=== PATIENT | female | born 1945 | race Caucasian/White ===

== ENCOUNTER 2017-03-30 12:43 | Inpatient (IN) | payer MEDICARE ==
[~2017-03-30] VITALS: Ht 157.4 cm; Wt 90.0 kg
--- NOTE | ~2017-03-30 | PR ---
[place], [place] PROGRESS NOTE NAME: [facility] [id number] UNIT #: [id number] ROOM: 412 DOCTOR: GERONIMO HONG MD,KATIE BIRTHDATE: [birth year] DOS: 04/02/2017 SUBJECTIVE: She has been noted the same as yesterday. The patient appeared to be sleepy at this time, no distress. She has not been noted any acute hemodynamic instability at this time. She has an MRI of the abdomen completed yesterday. The patient was reported as multiple cystic structures pancreatic body, tail, lobulation and septation. The etiology was described to be unclear. Followup MRI for the patient was suggested. OBJECTIVE: VITAL SIGNS: For the patient, which has been recorded showed normal temperature, respiratory rate 20, heart rate 76, blood pressure 114/68. The pulse oxygen saturation for the patient on 3 liters cannula was recorded 98% saturation. HEENT: No new change. CARDIOVASCULAR: S1, S2 audible. LUNGS: Without any wheeze or crackles at the present time. ABDOMEN: Soft, nontender. IMPRESSION: The patient's urinary tract infection with acute sepsis, change in mental status. The patient has history of past stroke. The patient with residual hemiparesis, expressive aphasia. PLAN OF TREATMENT: No changes from the pulmonary standpoint at this time. Continue the patient's current therapy, plan of care as in progress. Usual care, other supportive plan of management. KATIE MELTON MD CM:PNTRANS [phone] KATIE HONG MD 04/03/17 0150 interface
--- NOTE | ~2017-03-30 | PR ---
[place], [place] PROGRESS NOTE NAME: YANN BROOKS UNIT #: [id number] ROOM: 412 DOCTOR: GERONIMO HONG MD,KATIE BIRTHDATE: [birth year] DOS: 04/01/2017 SUBJECTIVE: She has been comfortably resting. Refused to use the BiPAP. She has been currently noted without any distress ____ not reported any changes in the respiratory status. She had ammonia level done yesterday for assessment of mental status as well. OBJECTIVE: VITAL SIGNS: For the patient which have been recorded show normal temperature, respiratory rate 20, heart rate of 92, blood pressure 106/70. Pulse oxygen saturation of the patient noted on 3 liters nasal canula 92% saturation. HEENT: Examination showed no acute change. NECK: Supple. CARDIOVASCULAR SYSTEM: S1, S2 is audible. LUNGS: The patient is noted without any wheeze or crackles at the present time. ABDOMEN: Soft, nontender. IMPRESSION: The patient with acute urinary tract today infection with sepsis. The patient with change in mental status, history of chronic stroke with the patient in the past as well as residual right hemiparesis and expressive aphasia. Refusal of the BiPAP use. PLAN OF TREATMENT: No changes in plan of management. Continue the patient's current therapy at this time with antibiotics, bronchodilator adjustment, antibiotics according to culture results, which has been noted gram-negative infection in the urine. Supportive care and treatment plan of management. KATIE MELTON MD CM:PNKHANG [id number] KATIE HONG MD 04/02/17 0047 interface
--- NOTE | ~2017-03-30 | CON ---
[place], [place] REPORT OF CONSULTATION [id number] UNIT #: [id number] ROOM: 412 DOCTOR: GERONIMO HONG MDKATIE BIRTHDATE: [birth year] DOS: 03/31/2017 REASON FOR CONSULTATION: To assess the patient's acute respiratory failure with sepsis. HISTORY OF PRESENT ILLNESS: A 71-year-old white female currently a resident of senior care after her previous stroke. The patient stays in [facility] for this patient. The patient reported symptoms. She has been rather admitted to the hospital, brought from the hospital for the patient. The patient was noted decreased responsiveness. She was also noted progressive increased lethargy, generalized weakness. The patient was brought to the hospital Emergency Room. She has been noted with hypoxic respiratory failure and also noted with acute urinary tract infection for the patient with sepsis. She was originally admitted to the medical floor for patient because of high amount of supplementation and possible use of the BiPAP for the patient. She was transferred to Intensive Care Unit yesterday. This morning, the patient has been noted more awake and alert at this time. She has been noted expressive aphasia, unable to exactly communicate her problem. The history has been obtained essentially from the past documentation of the patient in this hospital from previous admission for the patient in this hospital in 2015 as well as her current documentation by the other physician records for this patient and the nursing staff notes. The patient denies any symptoms of shortness of breath, coughing, chest pain or sputum expectoration. She stated she is not sure why she come to the hospital and what has been going on at this time. REVIEW OF SYSTEMS: Could not be completed for this patient at this time effectively because of the patient's inability to exactly communicate her illness. PAST MEDICAL HISTORY: Noted with patient's previous hospitalization in this hospital in 11/2015 for this patient, at that time, the patient has been treated in this hospital for acute hypoxic respiratory failure with acute congestive heart failure with history of past chronic stroke and the patient noted right hemiparesis. 1. Obstructive sleep apnea disorder which had been diagnosed in 2003, the patient may noncompliant with the treatment. 2. History of gastroesophageal reflux. 3. Atrial fibrillation. 4. History of acute embolic stroke, the patient left hemiparesis in August 2016. 5. Iron deficiency anemia. 6. Hypothyroidism. 7. Chronic obesity. 8. History of depression. 9. History of congestive heart failure and diastolic dysfunction. 10. Antiphospholipid antibody syndrome. The patient has hypercoagulability disorder. 11. History of type 2 diabetes mellitus. [place], [place] REPORT OF CONSULTATION NAME: YANN BROOKS UNIT #: [id number] ROOM: 412 DOCTOR: KATIE DHILLON MD BIRTHDATE: [birth year] PAST SURGICAL HISTORY: 1. . 2. Cholecystectomy. 3. Colonoscopy. SOCIAL HISTORY: The patient is , was living at the nursing facility at this time. There is no history of alcohol use, illicit drug use or any tobacco use. FAMILY HISTORY: The patient's mother at age of 6060 years old from complications related to myocardial infarction. Father at age 6060 years old from complication related to myocardial infarction as well. MEDICATIONS: Current listed medications for the patient, which has been used for patient, are noted use of Lipitor, digoxin, potassium chloride, magnesium oxide, diltiazem, Bumex, Protonix, Synthroid, Eliquis, sertraline, metoprolol tartrate, gabapentin, IV Solu-Medrol 60 mg b.i.d., Dulera, DuoNeb, Rocephin, Klonopin and other p.r.n. medications administration. The patient was also getting the Rocephin 1 g daily. DRUG ALLERGY HISTORY: The patient noted no known drug allergies. PHYSICAL EXAMINATION: GENERAL: A 71-year-old female currently noted to be awake and alert for the patient. Expressive aphasia for this patient was noted with height of 5 feet inches, weight of 200 pounds. VITAL SIGNS: For the patient, which were recorded showed the temperature recorded as normal since admission, respiratory rate 17-16, heart rate 65-73, blood pressure 128/88 to patient 119/74. Intake is 2090, output 675 mL. Pulse oxygen saturation of the patient noted on 6 liters nasal cannula 99% saturation. HEENT: Examination shows moderate obesity. Head was atraumatic. Eyes nonicterus. Oral mucosa was moist. CARDIOVASCULAR: S1, S2 audible. LUNGS: Noted without any crackles. Occasional wheezing for the patient was present. ABDOMEN: Soft, obese, nontender. EXTREMITIES: Chronic obesity. CENTRAL NERVOUS SYSTEM: Right hemiparesis. The patient was noted with patient's and expressive aphasia present for the examination. Could not be performed the patient's inability to follow the instructions appropriately with expressive aphasia and current stroke. SKIN: Visible skin does not show any lesions or rashes. MUSCULOSKELETAL: Does not show any acute deformities. LABORATORY DATA: CMP of the patient that was done on 03/31/2017 shows glucose 185, BUN 18, creatinine 0.52. Remaining CMP was normal. CBC for the patient of 03/31/2017, WBC count 4.6, hemoglobin 12.2, hematocrit 37.1, platelet count 212,000. CBC of the patient that was done for this patient on 03/30/2017, the patient was noted as WBC count 11.1. The patient's remaining CBC was normal. Lactic acid 3.2 noted on admission. Subsequent lactic acidosis of the patient [place], [place] REPORT OF CONSULTATION NAME: YANN BROOKS UNIT #: [id number] ROOM: [facility] DOCTOR[facility] BIR[facility]: [birth year] noted gradual reduction and normal lactic acid noted later on 03/30/2017, the patient is 1.8. PT and PTT for the patient were noted as INR of 1.0 and PTT normal yesterday. CT scan of the head for the patient on 03/30/2017, the patient does not report any acute intracranial abnormalities. CMP of the patient that was done on 03/30/2017 on admission showed glucose 146, BUN and creatinine were normal. AST for the patient noted as 501, ALT 369, alkaline phosphatase of 477. The albumin noted at 2.7. The bilirubin was normal. Urinalysis of the patient that was done yesterday shows 3+ leukocyte esterase and bacteria. Arterial blood gas that was done yesterday; pH is 7.48, pCO2 of 44, pO2 of 65.5. Review of the radiology data for the patient pertinent to the chest for this patient. Chest x-ray of the patient that was done on 03/30/2017 for the patient's admission does not show any acute pulmonary infiltration with increased interstitial markings noted in the lower lungs bilaterally. There were no gross areas of consolidation. IMPRESSION: 1. The patient who has been currently admitted to the hospital noted acute hypoxic respiratory failure as a result of acute urinary tract infection and sepsis. 2. History of expressive aphasia for this patient was also noted. 3. Change in mental status, which had been previous noted, seemed to be resolving for the patient related to acute sepsis, improving. 4. History of chronic cerebrovascular accident for this patient, which has been old with right hemiparesis for the patient as well. 5. History of expressive aphasia. PLAN OF MANAGEMENT: At this time, the patient seemed to respond to the current treatment antibiotics. Monitor culture results of the blood and the urine for patient and suggest further changes in treatment. The patient was also getting Solu-Medrol at this time, I am not sure if that needs to be continued at this time. The dose will be decreased for the patient today to 60 mg daily. There was no wheezing present. The dose of the steroids could be quickly taper off for the patient in the next couple of days if not needed. Continue bronchodilator to help mobilize secretions if any. Supportive care and other therapy plan and management and treatment. The patient has a known history of past obstructive sleep apnea disorder, noncompliant with the treatment. She was ordered the BiPAP for this patient, settings of 07/06 over for this patient, yesterday. The patient absolutely refused to do so, so it has not been used at this time. The BiPAP will be discontinued for the patient because of the patient's lack of cooperation and use. Titrate the oxygen to maintain a saturation of 92% or greater. Other supportive therapy, plan and management and care. Usual medical management of therapies. [place], [place] REPORT OF CONSULTATION NAME: YANN BROOKS UNIT #: [id number] ROOM: 412 DOCTOR: KATIE DHILLON MD BIRTHDATE: [birth year] KATIE MELTON MD CM:CONSTR:REPORT OF CONSULTATION 1101 04/01/17 0227 interface
[2017-03-30 12:43] VITALS: BP 110/78
[~2017-03-30 12:43] MED LIST: ATARAX25 MG PO; ATIVAN1 MG PO; ATORVASTATIN CA80 M1 PO; BACTROBAN OINT0.9 GM T; CARTIA XT240 MG PO; CARVEDILOL3.125 MG PO; CENTRUM SILVER1 TA1 PO; CINNAMON500 MG PO; CIPROFLOXACIN500 M4 PO; CIPROFLOXACIN500 MG PO; COLACE100 MG PO; COUMADIN10 MG PO; COUMADIN4 M2 PO; COUMADIN5 M2 PO; Cranberry400 MG PO; DARVOCET N 1001 TAB PO; DILTIAZEM 24HR120 MG PO; DIOVAN160 M1 PO; DUONEB 3 MG/3 ML3 M1 NEB; ELIQUIS5 M1 PO; FEOSOL325 MG PO; FUROSEMIDE40 MG PO; GABAPENTIN400 MG PO; GARLIC OIL NATUR1 MG PO; HUMALOG100 U/ML SC; HYDRALAZINE50 MG PO; HYDROCODONE BIT1 T11 PO; IRON325 M2 PO; K-DUR 20MEQ20 MEQ PO; KEFLEX500 MG PO; LASIX40 MG PO; LASIX80 MG PO; LEXAPRO10 MG PO; LIDEX0.05% T; Lasix80 MG PO; MACROBID100 M1 PO; METFORMIN500 MG PO; MOTRIN600 MG PO; MOTRIN800 MG PO; NORCO 5-325 TA1 EACH PO; NUVIGIL150 MG PO; OMEPRAZOLE20 M2 PO; PERCOCET 325 MG1 TA2 PO; POTASSIUM CHLO20 ME4 PO; POTASSIUM20 MEQ PO; PRAVASTATIN SOD40 MG PO; PYRIDIUM200 MG PO; REMEDY WITH OLI1 PAS T; REMERON15 M2 PO; SYNTHROID,LEVO75 MCG PO; TOPROL XL100 MG PO; TRIMOX500 MG PO; VALSARTAN320 MG PO; VANCO 1.251.25 GM/25 IV; VICODIN 5/500 505 MG PO; VISTARIL25 MG PO; XANAX0.5 MG PO; ZAROXOLYN2.5 MG PO; ZAROXOLYN5 MG PO; ZOCOR20 MG PO; ZOFRAN ODT4 MG SL
[2017-03-30 13:12] LABS: BASO % 0.4 % (0.0-1.0); EOS # 0.1 10*3/uL (0.0-0.4); EOS % 0.7 % (1.0-4.0); HEMATOCRIT 41.3 % (37.0-47.0); HEMOGLOBIN 13.6 g/dl (12.0-16.0); LYMPH # 0.6 10*3/uL (1.3-4.4); LYMPH % 5.3 % (27.0-41.0); MEAN CELL VOLUME 93.2 fl (81.0-99.0); MEAN CORPUSCULAR HGB 30.7 pg (27.0-31.0); MEAN CORPUSCULAR HGB CONC 32.9 g/dl (33.0-37.0); MONO # 0.9 10*3/uL (0.1-1.0); MONO % 7.6 % (3.0-9.0); NEUT # 9.5 10*3/uL (2.3-7.9); NEUT % 85.7 % (47.0-73.0); PLATELET COUNT AUTOMATED 220 10*3/uL (130-400); RED BLOOD COUNT 4.43 10*6/uL (4.10-5.10); RED CELL DISTRI WIDTH 16.9 % (0-14.5); WHITE BLOOD COUNT 11.1 10*3/uL (4.8-10.8)
[2017-03-30 13:22] LABS: PROTHROMBIN TIME 10.2 SECONDS (9.0-12.4)
[2017-03-30 13:32] LABS: ALBUMIN 2.7 gm/dl (3.1-4.5); ALKALINE PHOSPHATASE 477 U/L (45-117); BILIRUBIN, TOTAL 0.9 mg/dl (0.2-1.0); BUN 16 mg/dl (7-24); C-REACTIVE PROTEIN 3.41 MG/DL (0-0.3); CARBON DIOXIDE 32 mmol/L (21-32); CHLORIDE 101 mmol/L (98-107); CPK 49 U/L (26-192); EST GLOM FILT AFRICAN AMERICAN > 60 ml/min; GLUCOSE 146 mg/dL (65-99); MAGNESIUM 1.9 mg/dL (1.5-2.1); SGOT/AST 501 IU/L (3-35); SGPT/ALT 369 U/L (12-78); SODIUM 141 mmol/L (136-145); TOTAL PROTEIN 7.9 gm/dL (6.4-8.2)
[2017-03-30 13:33] LABS: TROPONIN I < 0.015 ng/ml (<0.045)
[2017-03-30 13:50] LABS: DIGOXIN 1.12 ng/ml (0.8-2.0)
[2017-03-30 13:52] LABS: BILIRUBIN NEGATIVE (NEGATIVE); BLOOD 1+ (NEGATIVE); CLARITY CLOUDY (CLEAR); COLOR YELLOW (YELLOW); GLUCOSE NEGATIVE (NEGATIVE); KETONE NEGATIVE (NEGATIVE); LEUKO ESTERASE 3+ (NEGATIVE); NITRITE NEGATIVE (NEGATIVE); PROTEIN TRACE (NEGATIVE)
[2017-03-30 14:18] LABS: BACTERIA 3+; RBC TNTC rbc/hpf (0-2); URINE REFLEX COMMENT YES (NO); WBC TNTC wbc/hpf (0-5)
[2017-03-30] MEDS ORDERED: LOPRESSOR25 MG PO (15:07)
[2017-03-30] MEDS ORDERED: BREO ELLIPTA 11 EACH IH (15:07)
[2017-03-30 15:08] LABS: LA>2 REFLEX 2 HR DRAW NOW
[2017-03-30] MEDS ORDERED: DIGOX0.125 MG PO (15:08)
[2017-03-30] MEDS ORDERED: Lovenox40 MG/0.4 SC (15:10)
[2017-03-30] MEDS ORDERED: MAGOX 400400 MG PO (15:10)
[2017-03-30] MEDS ORDERED: POTASSIUM CHLO20 ME3 PO (15:11)
[2017-03-30] MEDS ORDERED: PROTONIX40 MG PO (15:12)
[2017-03-30] MEDS ORDERED: ZOLOFT100 MG PO (15:13)
[2017-03-30] MEDS ORDERED: BUMETANIDE1 MG PO (15:14)
[2017-03-30] MEDS ORDERED: KLONOPIN0.5 MG PO (15:15)
[2017-03-30] MEDS ORDERED: OXYCODONE5 M1 PO (15:17)
[2017-03-30 15:34] LABS: LA>2 RFLX FOLLOW UP AT 2 HRS 2.8 mmol/L (0.4-2.0)
[2017-03-30 15:48] VITALS: BP 128/88
[2017-03-30 16:20] VITALS: BP 116/64
[2017-03-30 17:26] LABS: LA>2 REFLEX 4 HR DRAW NOW
[2017-03-30 18:10] LABS: ABG BASE EXCESS 8.5 mmol/L (-2.0-2.0); ABG CO2 CONTENT 34.2 mmol/L (23-27); ABG HCO3 32.9 mmol/l (22-26); ABG TEMPERATURE 98.2 F (98.0-99.0); ARTERIAL BLOOD GAS PH 7.482 (7.35-7.45); ARTERIAL BLOOD GAS PO2 65.5 mmHg (80-90)
[2017-03-30 18:11] VITALS: BP 134/93
[2017-03-31] VITALS: BP 119/74
[2017-03-31 04:00] VITALS: BP 127/74
[2017-03-31 06:38] LABS: BASO % 0.2 % (0.0-1.0); HEMATOCRIT 37.1 % (37.0-47.0); HEMOGLOBIN 12.2 g/dl (12.0-16.0); LYMPH # 0.6 10*3/uL (1.3-4.4); LYMPH % 14.1 % (27.0-41.0); MEAN CELL VOLUME 91.2 fl (81.0-99.0); MEAN CORPUSCULAR HGB CONC 32.9 g/dl (33.0-37.0); MEAN PLATELET VOLUME 10.8 fl (9.6-12.3); MONO % 0.9 % (3.0-9.0); NEUT # 3.8 10*3/uL (2.3-7.9); NEUT % 84.1 % (47.0-73.0); PLATELET COUNT AUTOMATED 212 10*3/uL (130-400); RED BLOOD COUNT 4.07 10*6/uL (4.10-5.10); RED CELL DISTRI WIDTH 16.8 % (0-14.5); WHITE BLOOD COUNT 4.6 10*3/uL (4.8-10.8)
[2017-03-31 06:57] LABS: ALBUMIN 2.4 gm/dl (3.1-4.5); BILIRUBIN, TOTAL 0.6 mg/dl (0.2-1.0); BUN 18 mg/dl (7-24); CARBON DIOXIDE 32 mmol/L (21-32); CHLORIDE 102 mmol/L (98-107); CHOLESTEROL 128 mg/dL (<200); EST GLOM FILT AFRICAN AMERICAN > 60 ml/min; GLUCOSE 185 mg/dL (65-99); MAGNESIUM 2.1 mg/dL (1.5-2.1); PHOSPHOROUS 4.1 mg/dL (2.5-4.9); POTASSIUM 4.1 mmol/L (3.5-5.1); SGOT/AST 194 IU/L (3-35); SGPT/ALT 258 U/L (12-78); SODIUM 141 mmol/L (136-145); TOTAL PROTEIN 7.5 gm/dL (6.4-8.2); TRIGLYCERIDES 98 mg/dl (<150); VLDL CHOLESTEROL 20 mg/dL (6-40)
[2017-03-31 07:02] LABS: HEMOGLOBIN A1c 6.3 % (4.8-5.6)
[2017-03-31 07:04] LABS: ALKALINE PHOSPHATASE 366 U/L (45-117); HDL CHOLESTEROL 43 mg/dl (40-60); LDL CHOLESTEROL 65 mg/dL (9-159)
[2017-03-31 08:00] VITALS: BP 129/82
[2017-03-31 08:13] LABS: FOLIC ACID 11.26 ng/mL (>5.38); VITAMIN D, 25-HYDROXY 38.2 ng/mL (30-100)
[2017-03-31 12:00] VITALS: BP 130/78
[2017-03-31 16:00] VITALS: BP 135/72
[2017-03-31 20:00] VITALS: BP 133/75
[2017-04-01] VITALS: BP 126/78
[2017-04-01 06:12] LABS: HEMATOCRIT 33.9 % (37.0-47.0); LYMPH # 0.5 10*3/uL (1.3-4.4); LYMPH % 7.8 % (27.0-41.0); MEAN CELL VOLUME 90.9 fl (81.0-99.0); MEAN CORPUSCULAR HGB 29.5 pg (27.0-31.0); MEAN CORPUSCULAR HGB CONC 32.4 g/dl (33.0-37.0); MEAN PLATELET VOLUME 10.6 fl (9.6-12.3); MONO # 0.5 10*3/uL (0.1-1.0); MONO % 7.2 % (3.0-9.0); NEUT # 5.9 10*3/uL (2.3-7.9); NEUT % 84.4 % (47.0-73.0); PLATELET COUNT AUTOMATED 209 10*3/uL (130-400); RED BLOOD COUNT 3.73 10*6/uL (4.10-5.10); RED CELL DISTRI WIDTH 16.5 % (0-14.5)
[2017-04-01 06:29] LABS: ALBUMIN 2.4 gm/dl (3.1-4.5); BUN 20 mg/dl (7-24); CARBON DIOXIDE 34 mmol/L (21-32); CHLORIDE 100 mmol/L (98-107); EST GLOM FILT AFRICAN AMERICAN > 60 ml/min; GLUCOSE 249 mg/dL (65-99); MAGNESIUM 2.2 mg/dL (1.5-2.1); PHOSPHOROUS 2.7 mg/dL (2.5-4.9); POTASSIUM 3.6 mmol/L (3.5-5.1); SGOT/AST 69 IU/L (3-35); SGPT/ALT 176 U/L (12-78); SODIUM 139 mmol/L (136-145)
[2017-04-01 06:32] LABS: ALKALINE PHOSPHATASE 279 U/L (45-117); BILIRUBIN, TOTAL 0.4 mg/dl (0.2-1.0); TOTAL PROTEIN 6.9 gm/dL (6.4-8.2)
[2017-04-01 08:00] VITALS: BP 106/70
[2017-04-01 12:00] VITALS: BP 134/81
[2017-04-01 16:00] VITALS: BP 122/66
[2017-04-01 20:00] VITALS: BP 110/54
[2017-04-02] VITALS: BP 107/66
[2017-04-02 08:00] VITALS: BP 114/68
[2017-04-02 12:00] VITALS: BP 112/76
[2017-04-02] MEDS ORDERED: ATIVAN1 MG PO (14:08)
[2017-04-02] MEDS ORDERED: CIPRO500 MG PO (14:08)
[2017-04-02] MEDS ORDERED: OXYCODONE5 M1 PO (14:08)
[2017-04-02] MEDS ORDERED: ELIQUIS5 M1 PO ×2 (14:08→14:10)
[2017-04-02] MEDS ORDERED: OXYGEN NAS (14:17)
[2017-04-02] MEDS ORDERED: PREDNISONE10 MG PO (14:17)
[2017-04-02 16:00] VITALS: BP 127/66
== END 2017-04-02 17:38 | disposition other institution (70) | DRG 871 ==
LOC: ED 12:43 → ICCU 15:27 → EDHOLD 15:27 → 4E 15:31 → ICCU 17:46 → 4E 03-31 18:07
PROVIDERS: Emergency Medicine; Hospitalist; Internal Medicine
PROC: 5A09357 Assistance with Respiratory Ventilation, Less than 24 Consecutive Hours, Continuous Positive Airway Pressure (ICD-10-PCS; principal; 2017-03-30)
DX: A41.9 Sepsis, unspecified organism (principal); G93.41 Metabolic encephalopathy; J96.01 Acute respiratory failure with hypoxia; I50.32 Chronic diastolic (congestive) heart failure; E11.621 Type 2 diabetes mellitus with foot ulcer; D68.61 Antiphospholipid syndrome; N39.0 Urinary tract infection, site not specified; I69.359 Hemiplegia and hemiparesis following cerebral infarction affecting unspecified side; R65.20 Severe sepsis without septic shock; R74.0 Nonspecific elevation of levels of transaminase and lactic acid dehydrogenase [LDH]; K21.9 Gastro-esophageal reflux disease without esophagitis; L97.529 Non-pressure chronic ulcer of other part of left foot with unspecified severity; Z53.29 Procedure and treatment not carried out because of patient's decision for other reasons; G47.33 Obstructive sleep apnea (adult) (pediatric); E66.9 Obesity, unspecified; I48.2 Chronic atrial fibrillation; F32.9 Major depressive disorder, single episode, unspecified; Z90.49 Acquired absence of other specified parts of digestive tract; Z82.49 Family history of ischemic heart disease and other diseases of the circulatory system; Z79.4 Long term (current) use of insulin; Z79.899 Other long term (current) drug therapy; I69.320 Aphasia following cerebral infarction; Z68.32 Body mass index [BMI] 32.0-32.9, adult

== ENCOUNTER 2017-04-15 16:01 | Inpatient (IN) | payer MEDICARE, MEDICAID ==
[~2017-04-15] VITALS: Ht 162.5 cm; Wt 96.6 kg
[~2017-04-15 16:01] MED LIST changes: +BREO ELLIPTA 11 EACH IH; +BUMETANIDE1 MG PO; +CIPRO500 MG PO; +DIGOX0.125 MG PO; +KLONOPIN0.5 MG PO; +LOPRESSOR25 MG PO; +Lovenox40 MG/0.4 SC; +MAGOX 400400 MG PO; +OXYCODONE5 M1 PO; +OXYGEN NAS; +POTASSIUM CHLO20 ME3 PO; +PREDNISONE10 MG PO; +PROTONIX40 MG PO; +ZOLOFT100 MG PO
[2017-04-15 16:09] VITALS: BP 106/55
[2017-04-15 17:21] LABS: BILIRUBIN NEGATIVE (NEGATIVE); BLOOD NEGATIVE (NEGATIVE); CLARITY SL CLOUDY (CLEAR); COLOR YELLOW (YELLOW); GLUCOSE NEGATIVE (NEGATIVE); KETONE NEGATIVE (NEGATIVE); LEUKO ESTERASE TRACE (NEGATIVE); NITRITE NEGATIVE (NEGATIVE); PH 5.5 (5.0-9.0); PROTEIN NEGATIVE (NEGATIVE); SPECIFIC GRAVITY 1.015 (1.005-1.030); UROBILINOGEN 0.2 E.U./dl (0.2-1.0)
[2017-04-15 17:28] LABS: BASO % 0.2 % (0.0-1.0); EOS # 0.1 10*3/uL (0.0-0.4); EOS % 0.7 % (1.0-4.0); HEMATOCRIT 41.7 % (37.0-47.0); HEMOGLOBIN 13.6 g/dl (12.0-16.0); IG # 0.1 10*3/uL (0.0-0.1); LYMPH # 0.3 10*3/uL (1.3-4.4); LYMPH % 2.5 % (27.0-41.0); MEAN CELL VOLUME 93.9 fl (81.0-99.0); MEAN CORPUSCULAR HGB 30.6 pg (27.0-31.0); MEAN CORPUSCULAR HGB CONC 32.6 g/dl (33.0-37.0); MEAN PLATELET VOLUME 9.9 fl (9.6-12.3); MONO # 0.8 10*3/uL (0.1-1.0); MONO % 6.4 % (3.0-9.0); NEUT # 11.1 10*3/uL (2.3-7.9); NEUT % 89.6 % (47.0-73.0); PLATELET COUNT AUTOMATED 196 10*3/uL (130-400); RED BLOOD COUNT 4.44 10*6/uL (4.10-5.10); RED CELL DISTRI WIDTH 17.2 % (0-14.5); WHITE BLOOD COUNT 12.4 10*3/uL (4.8-10.8)
[2017-04-15 17:29] LABS: URINE REFLEX COMMENT YES (NO)
[2017-04-15 17:31] LABS: BACTERIA 1+
[2017-04-15 17:44] LABS: ALBUMIN 2.9 gm/dl (3.1-4.5); ALKALINE PHOSPHATASE 424 U/L (45-117); BUN 27 mg/dl (7-24); CARBON DIOXIDE 30 mmol/L (21-32); CHLORIDE 103 mmol/L (98-107); EST GLOM FILT AFRICAN AMERICAN > 60 ml/min; GLUCOSE 221 mg/dL (65-99); POTASSIUM 4.3 mmol/L (3.5-5.1); SGOT/AST 545 IU/L (3-35); SGPT/ALT 447 U/L (12-78); SODIUM 145 mmol/L (136-145); TOTAL PROTEIN 6.7 gm/dL (6.4-8.2)
[2017-04-15 17:45] LABS: TROPONIN I 0.026 ng/ml (<0.045)
[2017-04-15 19:25] LABS: LA>2 REFLEX 2 HR DRAW NOW
[2017-04-15 20:15] VITALS: BP 133/58
[2017-04-15] MEDS ORDERED: Lovenox40 MG/0.4 PO (21:13)
[2017-04-15] MEDS ORDERED: BUSPIRONE HCL10 MG PO (21:24)
[2017-04-15] MEDS ORDERED: ACIDOPHILUS LACT1 GM MC (21:26)
[2017-04-15] MEDS ORDERED: OXYCODONE HCL5 M1 PO (21:28)
[2017-04-15] MEDS ORDERED: OXAYDO7.5 MG PO (21:30)
[2017-04-16] VITALS: BP 115/60
[2017-04-16 07:15] LABS: HEMATOCRIT 36.1 % (37.0-47.0); HEMOGLOBIN 11.9 g/dl (12.0-16.0); MEAN CELL VOLUME 92.6 fl (81.0-99.0); MEAN CORPUSCULAR HGB 30.5 pg (27.0-31.0); MEAN PLATELET VOLUME 10.4 fl (9.6-12.3); PLATELET COUNT AUTOMATED 171 10*3/uL (130-400); RED CELL DISTRI WIDTH 16.5 % (0-14.5)
[2017-04-16 07:48] LABS: ALBUMIN 2.7 gm/dl (3.1-4.5); ALKALINE PHOSPHATASE 330 U/L (45-117); BILIRUBIN, TOTAL 0.5 mg/dl (0.2-1.0); BUN 24 mg/dl (7-24); CARBON DIOXIDE 27 mmol/L (21-32); CHLORIDE 108 mmol/L (98-107); EST GLOM FILT AFRICAN AMERICAN > 60 ml/min; FREE T4 1.13 ng/dl (0.76-1.46); GLUCOSE 275 mg/dL (65-99); LYMPHOCYTE # 0.1 10*3/uL (1.3-4.4); MAGNESIUM 2.2 mg/dL (1.5-2.1); MONOCYTE # 0.1 10*3/uL (0.1-1.0); NEUTROPHIL # 5.8 10*3/uL (2.3-7.9); NEUTROPHILS 97 % (47-73); PHOSPHOROUS 3.4 mg/dL (2.5-4.9); PLATELET SUFFICIENCY NORMAL (NORMAL); POTASSIUM 4.7 mmol/L (3.5-5.1); SGOT/AST 189 IU/L (3-35); SGPT/ALT 347 U/L (12-78); SODIUM 144 mmol/L (136-145); TOTAL CELLS COUNTED 100 #CELLS; TOTAL PROTEIN 6.4 gm/dL (6.4-8.2)
[2017-04-16 07:51] LABS: PROTHROMBIN TIME 10.3 SECONDS (9.0-12.4)
[2017-04-16 07:53] LABS: THYROID STIM HORMONE (HS) 0.881 uIU/ml (0.358-4.75)
[2017-04-16 12:00] VITALS: BP 148/78
[2017-04-16 16:00] VITALS: BP 119/59
[2017-04-16 20:00] VITALS: BP 122/61
[2017-04-17] VITALS: BP 113/68
[2017-04-17 07:07] LABS: BASO % 0.2 % (0.0-1.0); EOS % 0.2 % (1.0-4.0); HEMATOCRIT 37.1 % (37.0-47.0); HEMOGLOBIN 11.9 g/dl (12.0-16.0); LYMPH # 0.6 10*3/uL (1.3-4.4); LYMPH % 9.6 % (27.0-41.0); MEAN CELL VOLUME 92.8 fl (81.0-99.0); MEAN CORPUSCULAR HGB 29.8 pg (27.0-31.0); MEAN CORPUSCULAR HGB CONC 32.1 g/dl (33.0-37.0); MEAN PLATELET VOLUME 10.4 fl (9.6-12.3); MONO # 0.4 10*3/uL (0.1-1.0); NEUT # 5.1 10*3/uL (2.3-7.9); NEUT % 82.5 % (47.0-73.0); PLATELET COUNT AUTOMATED 173 10*3/uL (130-400); RED CELL DISTRI WIDTH 16.7 % (0-14.5); WHITE BLOOD COUNT 6.2 10*3/uL (4.8-10.8)
[2017-04-17 07:35] LABS: ALBUMIN 2.6 gm/dl (3.1-4.5); ALKALINE PHOSPHATASE 263 U/L (45-117); BILIRUBIN, TOTAL 0.3 mg/dl (0.2-1.0); BUN 24 mg/dl (7-24); CARBON DIOXIDE 32 mmol/L (21-32); CHLORIDE 106 mmol/L (98-107); EST GLOM FILT AFRICAN AMERICAN > 60 ml/min; GLUCOSE 180 mg/dL (65-99); POTASSIUM 4.1 mmol/L (3.5-5.1); SGOT/AST 61 IU/L (3-35); SGPT/ALT 238 U/L (12-78); SODIUM 145 mmol/L (136-145); TOTAL PROTEIN 6.4 gm/dL (6.4-8.2)
[2017-04-17 08:00] VITALS: BP 124/62
[2017-04-17 12:00] VITALS: BP 96/50
[2017-04-17 16:00] VITALS: BP 122/67
[2017-04-17 20:00] VITALS: BP 114/66
[2017-04-18] VITALS: BP 121/70
[2017-04-18 08:00] VITALS: BP 142/90
[2017-04-18 20:00] VITALS: BP 136/82
[2017-04-19] VITALS: BP 133/82
[2017-04-19 08:00] VITALS: BP 152/99
[2017-04-19 12:02] VITALS: BP 126/88
[2017-04-19] MEDS ORDERED: ATIVAN1 MG PO (13:44)
[2017-04-19] MEDS ORDERED: KLONOPIN0.5 MG PO (13:44)
[2017-04-19] MEDS ORDERED: LINEZOLID600 MG PO (13:44)
[2017-04-19] MEDS ORDERED: OXAYDO7.5 MG PO (13:44)
== END 2017-04-19 15:00 | disposition other institution (70) | DRG 871 ==
LOC: ED 16:01 → EDHOLD 19:20 → 4E 19:20
PROVIDERS: Internal Medicine; Internal Medicine Hospice and Palliative Medicine; Registered Nurse
DX: A41.9 Sepsis, unspecified organism (principal); G93.41 Metabolic encephalopathy; E43 Unspecified severe protein-calorie malnutrition; D68.61 Antiphospholipid syndrome; I50.32 Chronic diastolic (congestive) heart failure; K86.2 Cyst of pancreas; F33.9 Major depressive disorder, recurrent, unspecified; E11.65 Type 2 diabetes mellitus with hyperglycemia; Z99.81 Dependence on supplemental oxygen; I69.351 Hemiplegia and hemiparesis following cerebral infarction affecting right dominant side; N39.0 Urinary tract infection, site not specified; R65.20 Severe sepsis without septic shock; K43.9 Ventral hernia without obstruction or gangrene; R74.0 Nonspecific elevation of levels of transaminase and lactic acid dehydrogenase [LDH]; I48.2 Chronic atrial fibrillation; K21.9 Gastro-esophageal reflux disease without esophagitis; E66.01 Morbid (severe) obesity due to excess calories; B95.2 Enterococcus as the cause of diseases classified elsewhere; Z16.22 Resistance to vancomycin related antibiotics; Z79.4 Long term (current) use of insulin; Z90.49 Acquired absence of other specified parts of digestive tract; Z82.49 Family history of ischemic heart disease and other diseases of the circulatory system; Z68.36 Body mass index [BMI] 36.0-36.9, adult; Z79.899 Other long term (current) drug therapy

== ENCOUNTER 2017-05-21 09:34 | Inpatient (IN) | payer MEDICARE, MEDICAID ==
[~2017-05-21] VITALS: Ht 167.6 cm; Wt 91.4 kg
[~2017-05-21 09:34] MED LIST changes: +ACIDOPHILUS LACT1 GM MC; +BUSPIRONE HCL10 MG PO; +LINEZOLID600 MG PO; +Lovenox40 MG/0.4 PO; +OXAYDO7.5 MG PO; +OXYCODONE HCL5 M1 PO
[2017-05-21 09:45] VITALS: BP 142/81
[2017-05-21 10:09] LABS: BASO # 0.1 10*3/uL (0.0-0.1); BASO % 0.5 % (0.0-1.0); EOS # 0.3 10*3/uL (0.0-0.4); EOS % 1.6 % (1.0-4.0); HEMATOCRIT 41.4 % (37.0-47.0); HEMOGLOBIN 13.7 g/dl (12.0-16.0); IG # 0.1 10*3/uL (0.0-0.1); LYMPH # 0.7 10*3/uL (1.3-4.4); LYMPH % 4.5 % (27.0-41.0); MEAN CELL VOLUME 91.4 fl (81.0-99.0); MEAN CORPUSCULAR HGB 30.2 pg (27.0-31.0); MEAN CORPUSCULAR HGB CONC 33.1 g/dl (33.0-37.0); MEAN PLATELET VOLUME 10.7 fl (9.6-12.3); MONO % 6.3 % (3.0-9.0); NEUT # 14.2 10*3/uL (2.3-7.9); NEUT % 86.6 % (47.0-73.0); PLATELET COUNT AUTOMATED 244 10*3/uL (130-400); RED BLOOD COUNT 4.53 10*6/uL (4.10-5.10); RED CELL DISTRI WIDTH 16.8 % (0-14.5); WHITE BLOOD COUNT 16.4 10*3/uL (4.8-10.8)
[2017-05-21 10:24] LABS: ALBUMIN 2.9 gm/dl (3.1-4.5); ALKALINE PHOSPHATASE 343 U/L (45-117); BILIRUBIN, TOTAL 1.3 mg/dl (0.2-1.0); BUN 22 mg/dl (7-24); CARBON DIOXIDE 29 mmol/L (21-32); CHLORIDE 101 mmol/L (98-107); EST GLOM FILT AFRICAN AMERICAN > 60 ml/min; GLUCOSE 146 mg/dL (65-99); MAGNESIUM 1.4 mg/dL (1.5-2.1); POTASSIUM 3.4 mmol/L (3.5-5.1); SGOT/AST 374 IU/L (3-35); SGPT/ALT 210 U/L (12-78); SODIUM 138 mmol/L (136-145); TOTAL PROTEIN 7.5 gm/dL (6.4-8.2)
[2017-05-21 10:25] LABS: PROTHROMBIN TIME 10.7 SECONDS (9.0-12.4)
[2017-05-21 10:39] LABS: DIGOXIN 1.03 ng/ml (0.8-2.0)
[2017-05-21 10:43] VITALS: BP 150/70
[2017-05-21 10:50] LABS: BILIRUBIN 1+ (NEGATIVE); BLOOD TRACE-INTACT (NEGATIVE); CLARITY CLOUDY (CLEAR); COLOR YELLOW (YELLOW); GLUCOSE NEGATIVE (NEGATIVE); KETONE TRACE (NEGATIVE); LEUKO ESTERASE 3+ (NEGATIVE); NITRITE POSITIVE (NEGATIVE); PH 5.5 (5.0-9.0); PROTEIN NEGATIVE (NEGATIVE)
[2017-05-21 11:00] LABS: BACTERIA 3+; EPITHELIAL CELLS 13-15; URINE REFLEX COMMENT YES (NO); WBC TNTC wbc/hpf (0-5)
[2017-05-21 12:07] LABS: LA>2 REFLEX 2 HR DRAW NOW
[2017-05-21 12:24] VITALS: BP 104/31
[2017-05-21] MEDS ORDERED: DILTIAZEM HCL180 MG PO (12:49)
[2017-05-21] MEDS ORDERED: ZOLOFT50 MG PO (12:56)
[2017-05-21] MEDS ORDERED: METFORMIN500 MG PO (12:57)
[2017-05-21] MEDS ORDERED: HUMALOG100 U/ML SC (13:03)
[2017-05-21] MEDS ORDERED: ACETAMINOPHEN325 M2 PO (13:06)
[2017-05-21] MEDS ORDERED: TESSALON PERLE100 MG PO (13:06)
[2017-05-21 14:15] LABS: LA>2 REFLEX 4 HR DRAW NOW
[2017-05-21 16:00] VITALS: BP 112/52
[2017-05-21 20:00] VITALS: BP 109/68
[2017-05-22] VITALS: BP 111/51
[2017-05-22 06:34] LABS: BASO # 0.1 10*3/uL (0.0-0.1); BASO % 0.9 % (0.0-1.0); EOS # 0.3 10*3/uL (0.0-0.4); HEMATOCRIT 36.2 % (37.0-47.0); HEMOGLOBIN 12.1 g/dl (12.0-16.0); LYMPH # 0.8 10*3/uL (1.3-4.4); LYMPH % 14.2 % (27.0-41.0); MEAN CELL VOLUME 91.2 fl (81.0-99.0); MEAN CORPUSCULAR HGB 30.5 pg (27.0-31.0); MEAN CORPUSCULAR HGB CONC 33.4 g/dl (33.0-37.0); MEAN PLATELET VOLUME 10.6 fl (9.6-12.3); MONO # 0.4 10*3/uL (0.1-1.0); MONO % 6.4 % (3.0-9.0); NEUT # 4.2 10*3/uL (2.3-7.9); NEUT % 72.8 % (47.0-73.0); PLATELET COUNT AUTOMATED 195 10*3/uL (130-400); RED BLOOD COUNT 3.97 10*6/uL (4.10-5.10); RED CELL DISTRI WIDTH 16.5 % (0-14.5); WHITE BLOOD COUNT 5.8 10*3/uL (4.8-10.8)
[2017-05-22 06:44] LABS: INTERNATIONAL NORM RATIO 1.1 (2.0-3.5); PROTHROMBIN TIME 11.4 SECONDS (9.0-12.4)
[2017-05-22 06:52] LABS: HEMOGLOBIN A1c 7.2 % (4.8-5.6)
[2017-05-22 07:04] LABS: BUN 16 mg/dl (7-24); CARBON DIOXIDE 27 mmol/L (21-32); CHLORIDE 107 mmol/L (98-107); CHOLESTEROL 116 mg/dL (<200); EST GLOM FILT AFRICAN AMERICAN > 60 ml/min; FREE T4 1.27 ng/dl (0.76-1.46); GLUCOSE 119 mg/dL (65-99); HDL CHOLESTEROL 39 mg/dl (40-60); LDL CHOLESTEROL 55 mg/dL (9-159); PHOSPHOROUS 2.4 mg/dL (2.5-4.9); POTASSIUM 3.9 mmol/L (3.5-5.1); SODIUM 142 mmol/L (136-145); TRIGLYCERIDES 112 mg/dl (<150); VLDL CHOLESTEROL 22 mg/dL (6-40)
[2017-05-22 08:00] VITALS: BP 120/64
[2017-05-22 09:36] LABS: VITAMIN D, 25-HYDROXY 36.7 ng/mL (30-100)
[2017-05-22 09:37] LABS: FOLIC ACID 9.55 ng/mL (>5.38)
[2017-05-22 12:00] VITALS: BP 118/66
[2017-05-22 16:18] VITALS: BP 109/43
[2017-05-22 20:00] VITALS: BP 119/56
[2017-05-23] VITALS: BP 92/64
[2017-05-23 08:00] VITALS: BP 108/46
[2017-05-23 12:00] VITALS: BP 110/80
[2017-05-23 16:00] VITALS: BP 105/68
[2017-05-23 20:00] VITALS: BP 103/75
[2017-05-24] VITALS: BP 103/75; BP 107/73
[2017-05-24 04:00] VITALS: BP 110/70
[2017-05-24 08:00] VITALS: BP 134/87
[2017-05-24 12:00] VITALS: BP 117/65
[2017-05-24] MEDS ORDERED: OXAYDO7.5 MG PO ×2 (15:13→15:20)
[2017-05-24] MEDS ORDERED: MERREM IV1 GM IV (15:20)
[2017-05-24] MEDS ORDERED: COUMADIN5 M2 PO (15:22)
[2017-05-24] MEDS ORDERED: BACTRIM 400 MG-1 TAB PO (15:25)
[2017-05-24 16:00] VITALS: BP 130/91
== END 2017-05-24 17:04 | disposition other institution (70) | DRG 871 ==
LOC: ED 09:34 → EDHOLD 11:13 → 5E 11:13
PROVIDERS: Internal Medicine; Nurse Practitioner Family
DX: A41.9 Sepsis, unspecified organism (principal); E43 Unspecified severe protein-calorie malnutrition; E87.2 Acidosis; D68.61 Antiphospholipid syndrome; I50.32 Chronic diastolic (congestive) heart failure; I11.0 Hypertensive heart disease with heart failure; Z99.81 Dependence on supplemental oxygen; E11.65 Type 2 diabetes mellitus with hyperglycemia; I48.2 Chronic atrial fibrillation; N39.0 Urinary tract infection, site not specified; R65.20 Severe sepsis without septic shock; R31.9 Hematuria, unspecified; E87.6 Hypokalemia; E78.2 Mixed hyperlipidemia; E83.42 Hypomagnesemia; K21.9 Gastro-esophageal reflux disease without esophagitis; E66.01 Morbid (severe) obesity due to excess calories; B96.20 Unspecified Escherichia coli [E. coli] as the cause of diseases classified elsewhere; Z86.73 Personal history of transient ischemic attack (TIA), and cerebral infarction without residual deficits; Z90.49 Acquired absence of other specified parts of digestive tract; Z82.49 Family history of ischemic heart disease and other diseases of the circulatory system; Z79.1 Long term (current) use of non-steroidal anti-inflammatories (NSAID); Z79.4 Long term (current) use of insulin; Z79.84 Long term (current) use of oral hypoglycemic drugs; Z79.899 Other long term (current) drug therapy; Z68.31 Body mass index [BMI] 31.0-31.9, adult

== ENCOUNTER 2018-04-14 06:16 | Inpatient (IN) | payer MEDICARE, MEDICAID ==
[~2018-04-14] VITALS: Ht 165.1 cm; Wt 114.0 kg
[2018-04-14] VITALS (33 sets, daily range): BP systolic 48–188; BP diastolic 0–110
--- NOTE | ~2018-04-14 | CON ---
[place], [place] REPORT OF CONSULTATION [id number] UNIT #: [id number] ROOM: 515 DOCTOR: KATIE DHILLON MD BIRTHDATE: [birth year] DOS: 04/15/2018 CONSULTATION REQUESTED BY: Hospitalist Service. REASON FOR CONSULTATION: Replacement of the hypovolemia. The patient with a shock with elevation of lactic acid and other problem. HISTORY OF PRESENT ILLNESS: This is a 72-year-old white female patient who has been known with multiple medical problems including history of dementia and many other problems, has been hospitalized previously. The patient currently resides as [facility], inpatient nursing facility. She has been brought to the hospital. The patient has been noted increased symptoms of confusion, which has been noted worsening with some symptoms of nausea or vomiting. There was no diarrhea reported. She was brought to the hospital, noted with very severe lactic acidosis with severe hypotension of the electrolyte imbalance including metabolic acidosis with acute kidney injury. The patient has been admitted to the hospital Intensive Care Unit for further management. She has been given several intravenous fluid patient boluses for this patient and also given the bicarbonate at least 3 amps for this patient per recommendation of the Nephrology services. She has been noted with improvement in the mental status this morning. However, she does not recall all the events. Denies symptoms of coughing, sputum expectoration, chest pain. She does not report severe shortness breath, but noted some shortness of breath at this time. REVIEW OF SYSTEMS: Cannot be performed. The patient with history of dementia and all the history noted is actually review of the current documentation by other physician notes and my previous consultation on one of the previous admission in 03/2018. PAST MEDICAL HISTORY: 1. History of congestive heart failure and acute respiratory failure. 2. Past history of chronic stroke. The patient has right persistent hemiparesis. 3. Chronic bedbound status. 4. Obstructive sleep apnea disorder, nonadherence with the treatment. 5. Gastroesophageal reflux. 6. Atrial fibrillation. 7. Acute embolic stroke, left hemiparesis, August 2016. 8. Iron deficiency anemia. 9. Hypothyroidism. 10. Chronic obesity. 11. Depression. 12. Congestive heart failure, diastolic dysfunction. 13. Antiphospholipid syndrome with hypercoagulability. 14. Type 2 diabetes mellitus. PAST SURGICAL HISTORY: 1. . 2. Cholecystectomy. 3. Colonoscopy. [place], [place] REPORT OF CONSULTATION NAME: YANN BROOKS UNIT #: [id number] ROOM: [facility] DOCTOR: KATIE DHILLON MD BIRTHDATE: [birth year] SOCIAL HISTORY: The patient is , current resident of a nursing facility. Of note, history of past alcohol, tobacco or illicit drug use known. FAMILY HISTORY: The patient's mother 60 years of complication of myocardial infarction. Father at the age of 60-year-old with complication related to myocardial infarction as well. MEDICATIONS: Administered noted as use of sertraline, levothyroxine, cefepime 1 gram IV daily. The patient has been given previous vitamin D and also norepinephrine, that has been currently discontinued. DRUG ALLERGIES: The patient was noted no known drug allergies. PHYSICAL EXAMINATION: GENERAL: A 72-year-old female patient currently noted to have resting in the bed. The patient is using oxygen supplementation with the nasal cannula. Height of the patient recorded 5 feet 5 inches, weight of 214 pounds, BMI 35.4. VITAL SIGNS: Noted as a normal temperature since admission, respiratory rate range between 20s, 33 is rather high due to 18 this morning, heart rate ranged to be 109-82, blood pressure of the patient noted as lowest of 57/42. Current blood pressure this morning at 8:00 was noted 118/54. HEENT: Head was atraumatic. Eyes nonicterus. NECK: Flexed towards the right. CARDIOVASCULAR SYSTEM: S1, S2 audible. LUNGS: The patient was noted with [id number] decreased breath sounds bilaterally. There was no wheezing or crackles noted limited. ABDOMEN: Noted soft with obesity, bowel sounds present without tenderness. EXTREMITIES: Noted 3+ pitting edema bilateral lower extremities. Visible skin no lesions or rashes. CENTRAL NERVOUS SYSTEM: Left hemiparesis was also noted. MENTAL STATUS: Appeared to be normal at the baseline. MUSCULOSKELETAL: The patient noted some deformity of the spine which is chronic. LABORATORY DATA: CBC of 04/14/2018, WBC count 23.7, hemoglobin 6.3, hematocrit 21.9, platelet of 410,000. PT/PTT of patient's INR of 9.5, PTT 63 on admission. CMP of 04/14/2018 on admission, BUN 44, creatinine 2.69, glucose 183. Potassium was 7.2, CO2 of 7. Troponin for the patient was normal. Arterial blood gas, pH of 7.05. PCO2 of 19.4, pO2 87 that was done yesterday as well. CMP followup for this patient, BUN 48, creatinine 2.73. Potassium 6.4, CO2 remains 7. The chemistry this morning, the patient's BUN 52, creatinine 2.80, glucose 212. Chloride of 95. Phosphorus 6.1, total protein 5.5, albumin 2.4. The lactic acid was noted highest of 18. Follow up lactic acid was noted as 9.5 and then 7.[address] scan of the abdomen and pelvis was also done for this patient on this admission with the chest also as well. It shows a finding of large subcutaneous hematoma extending to the right flank and to the right hip area by 12.3 x 7.1 x 9.1 cm in size. Increase in the size of the previous cystic lesion and body of the pancreas reported MRI, MRCP was suggested. There was an acute finding noted in the chest. [place], [place] REPORT OF CONSULTATION NAME: YANN BROOKS UNIT #: [id number] ROOM: [facility] DO[facility] BIR[facility] [birth year] IMPRESSION: 1. The patient was currently admitted to the hospital, noted severe hyperkalemia with large hematoma noted on the side of the body with severe anemia and acute kidney injury. 2. Lactic acidosis. The patient is secondary to hyperperfusion, injury to be considered. 3. Acute kidney injury, most likely secondary to acute tubular necrosis and other multifactorial with severe hyperkalemia as well. Overall, patient was still noticed with edema of the lower extremities, congestive heart failure, diastolic dysfunction history. PLAN OF MANAGEMENT: Support the overall vital organs. At this time, fluids have not been used. The vasopressors had been lifted off. The patient had been given blood transfusion to improve the hemoglobin, hematocrit. The hemoglobin is noted 7.2, hematocrit 22.5. Surgical consultation has been ordered with extensive treatment described. The INR for patient versus use of vitamin K as well. The PTT today was noted with INR decreased to 5.1. Additional anticoagulation will be given in case of further anemia or enlargement of the hematoma on the body. Bronchodilators, oxygen supplementation, empirical use of antibiotic, sepsis is excluded. Continue medical management for acute kidney injury as well. Other supportive therapy, plan of management and care plan. Additional treatment changes will be recommended based on progression of the illness. Use of the BiPAP as necessary to support the respiratory status if necessary. Usual care or other plan of management as well. Thanks for allowing me to participate in the care of this patient. KATIE EMLTON MD CM:CONSTR:REPORT OF CONSULTATION 1326 06/21/18 0756 interface
--- NOTE | ~2018-04-14 | PR ---
[place], [place] PROGRESS NOTE NAME: YANN BROOKS UNIT #: [id number] ROOM: 515 DOCTOR: GERONIMO HONG MD,KATIE BIRTHDATE: [birth year] DOS: 04/17/2018 SUBJECTIVE: She was seen and examined on 04/17/2018, remains in intensive care. The patient at this time using oxygen supplementation, nasal cannula was planned for transfer to the telemetry floor. She denies symptoms of chest pain, hemoptysis, fever or chills. Oxygen supplementation was continued as ordered. OBJECTIVE: VITAL SIGNS: Normal temperature, respiratory rate 18, heart rate 116, blood pressure 118/61, pulse oxygen saturation of the patient 2 liters nasal cannula 100% saturation. HEENT: Chronic obesity. NECK: Supple. CARDIOVASCULAR: S1, S2 is audible. LUNGS: The patient was noted with [id number] decreased breath sounds. ABDOMEN: Soft and obese. EXTREMITIES: Without acute edema. LABORATORY DATA: INR today was noted 1.2. CBC, BUN 37, creatinine 1.26. CBC normal, WBC count, hemoglobin 8.4 remained stable with normal platelet count. IMPRESSION: 1. Large hematoma in the anterior abdominal wall was noted at this time remains stable with anemia. 2. Stable acute respiratory failure with chronic respiratory failure. 3. Resolving acute changes. The patient progressively as well. PLAN OF MANAGEMENT: No changes from the pulmonary standpoint. The patient could be transferred to the medical floor. The patient as assessed. No other change in treatment otherwise will be necessary. KATIE MELTON MD CM:PNTRANS [id number] KATIE HONG MD 06/21/18 0759 interface
--- NOTE | ~2018-04-14 | PR ---
[place], [place] PROGRESS NOTE NAME: [id number] UNIT #: [id number] ROOM: [facility] DOCTOR: GERONIMO HONG MD,KATIE BIRTHDATE: [birth year] DOS: 04/16/2018 PULMONARY PROGRESS NOTE SUBJECTIVE: She has been noted fully awake and alert this morning, resting in the bed without any acute hemodynamic instability at this time. Denies symptoms of coughing, chest pain, and sputum expectoration. The fluid supplementation remains discontinued as well as the patient was also noted off the pressors the last 24 hours as well. She has been assessed by Dr. Munroe, recommended conservative management for current hematoma, which has been noted on this patient. The patient has not noted any symptoms of chest pain, coughing, or sputum expectoration. She is able to understand questions, fully awake, alert, and oriented. Her was also present in the room with the patient. OBJECTIVE: VITAL SIGNS: Normal temperature, respiratory rate 14, heart rate 103, blood pressure 112/61. Pulse ox saturation on 3 liters nasal cannula 96% saturation. HEENT: Head was atraumatic. Eyes nonicterus. NECK: Supple. CARDIOVASCULAR: S1, S2 is audible. LUNGS: The patient was noted without any crackles, rhonchi, or wheezing. The breaths are noted mild to mildly diminished bilaterally. ABDOMEN: Soft, nontender with severe obesity. EXTREMITIES: Still noted severe edema. LABORATORY DATA: Today BUN noted 53, creatinine 2.33, glucose 167. Calcium uncorrected was 6.9. CO2 was noted 36. Albumin 2.4, total protein of 5.8. PT/INR were noted 2.0, which is in the low therapeutic range. CBC of the patient this morning, hemoglobin 8.3, hematocrit 25.6, and platelet count 166,000. Lactic acid still noted to be elevated at 6.4, not noted normal as yet. Blood culture remains no bacterial growth. IMPRESSION: 1. Resolving lactic acidosis. 2. Improving acute kidney injury as well, possibly chronic kidney disease, superimposed rather custodial could be considered as well. 3. Anticoagulation was noted progressive at this time. 4. History of antiphospholipid syndrome. 5. Hematoma of right abdominal wall was also noted. 6. The patient with chronic obesity. 7. Past history of stroke as well, which has been known in 2017. 8. Anemia, which has been noted stable. The patient with blood transfusions. PLAN OF MANAGEMENT: Continue current treatment. From a pulmonary standpoint, give oxygen supplementation. Monitor hemodynamics. Keep the patient off the anticoagulation for hematoma. Management of hematoma. Further recommendation per surgery staff. Usual care, other supportive therapy, and plan of management as well. [place], [place] PROGRESS NOTE NAME: YANN BROOKS UNIT #: [id number] ROOM: [facility] DOCTOR: KATIE DHILLON MD BIRTHDATE: [birth year] KATIE MELTON MD CM:DAIANA [id number] KATIE HONG MD 06/21/18 0757 interface
--- NOTE | ~2018-04-14 | PR ---
[place], [place] PROGRESS NOTE NAME: YANN BROOKS UNIT #: [id number] ROOM: 515 DOCTOR: EDEN BLACK MD BIRTHDATE: [birth year] DOS: 04/15/2018 NEPHROLOGY PROGRESS NOTE TIME OF SERVICE: 3:00 p.m. SUBJECTIVE: The patient was seen and evaluated and is overall doing fairly well. She is much more awake and alert. She is off pressors, still making some urine, though limited in scope. Her creatinine is mildly increased. Her acidosis has improved. Hemoglobin remains on the low side. She was transfused again this morning for level of 7.2 from 8.2 yesterday after transfusions. No real pain from her hematoma site. She is tolerating antibiotics for her UTI. OBJECTIVE: VITAL SIGNS: 98.2, 101, 14 and 110/64. GENERAL: Remains ill. Overall weak, lying in bed, awake though and alert. Extraocular muscles intact. Sclerae are anicteric. Oropharynx clear. LUNGS: Decreased. No rales or wheeze. CARDIOVASCULAR: Rate regular. No rub, slightly tachycardic. ABDOMEN: Soft, slight bruising in the right flank area. No rebound, no guarding. No suprapubic tenderness. No flank tenderness. Tracey catheter draining clear yellow urine, compared to yesterday, much clear in clarity. LABORATORIES AND DIAGNOSTICS: White blood cell count 7.6, hemoglobin 7.2, platelets 186. Chemistries, sodium 141, potassium 3.5, much improved from 7.2 on admission, chloride 95, bicarbonate 29, BUN 52, creatinine 2.8, glucose 212. Lactic acid was trending downwards to 7.4. Urines from yesterday were reviewed as above. Last blood gas, pH was up to 7.47, 32.6 and 56.6. This was after the bicarbonate drip had completed. ASSESSMENT AND PLAN: 1. Acute kidney injury. This is improving. Urine output is low, but stable. We will continue to follow for intake and output. No acute need for dialysis. 2. Acidosis has improved with bicarbonate infusion. Lactic acidosis is improving. We will need to be trended until resolution. 3. Severe hyperkalemia, improving as well. Digoxin was not toxic. Potassium supplement discontinued and metformin discontinued. 4. Anemia of blood loss and iatrogenic coagulopathy. Recommend we repeat INR and hemoglobin to ensure that she does not have further need for transfusion. We will continue to trend these labs. [place], [place] PROGRESS NOTE NAME: YANN BROOKS UNIT #: [id number] ROOM: [facility] DOCTOR: EDEN BLACK MD BIRTHDATE: [birth year] EDEN BLACK MD CM:PNTRANS 11 [phone] EDEN BLACK MD 04/17/181903 interface
--- NOTE | ~2018-04-14 | PR ---
[place], [place] PROGRESS NOTE NAME: YANN BROOKS UNIT #: [id number] ROOM: 515 DOCTOR: GERONIMO HONG MD,KATIE BIRTHDATE: [birth year] DOS: 04/18/2018 SUBJECTIVE: The patient has been noted comfortable at this time without any acute distress. She has been transferred to a telemetry floor. She was noted awake and alert, using oxygen supplementation nasal cannula. She has been noted without any acute distress this morning of assessment of symptoms of coughing, sputum expectoration, mental status changes were noted as normal. OBJECTIVE: VITAL SIGNS: Show normal temperature, respiratory rate 18, heart rate of 94, blood pressure 119/84. The pulse ox saturation on 2 liters nasal cannula 96% saturation. HEENT: Examination shows head was atraumatic. Eyes nonicterus. NECK: Supple. It was obese. CARDIOVASCULAR SYSTEM: S1, S2 is audible. LUNGS: The patient was noted without any wheezing, no crackles. Breaths are noted mild to moderate decreased bilaterally. ABDOMEN: Soft with chronic obesity. EXTREMITIES: Noted with still edema with partial improvement and reduction. LABORATORY DATA: INR noted 1.2. PTT 48. The CMP of the patient, BUN 26 and creatinine normal. Glucose 136. Potassium is 2.8. The phosphorus 1.6. PT/INR was 1.3, PTT was noted at 116.4. IMPRESSION: 1. The patient has been currently noted with an acute on chronic hypoxic respiratory failure. 2. Improved mental status changes. 3. History of peripheral edema. 4. Resolving acute severe kidney injury as well. 5. Anemia of chronic disease. 6. Chronic bedbound status for a patient with a stroke. 7. Obstructive sleep apnea disorder, nonadherence with the treatment. PLAN OF MANAGEMENT: Continuation of the current plan of management with oxygen supplementation to be titrated to maintain pulse oxygen 90% or greater. The patient's kidney function has been noted as normal. BUN was noted with mild elevation at this time of 26. The hematoma on the anterior abdominal wall, which has been noted at this time was monitored. The patient has been started back on anticoagulation, currently receiving therapeutic dose of unfractionated heparin. The PTT was managed by the primary care attending. [place], [place] PROGRESS NOTE NAME: YANN BROOKS UNIT #: [id number] ROOM: [facility] DOCTOR: KATIE DHILLON MD BIRTHDATE: [birth year] KATIE MELTON MD CM:PNTRANS [phone] KATIE HONG MD 04/19/18 0057 interface
--- NOTE | ~2018-04-14 | PR ---
[place], [place] PROGRESS NOTE NAME: YANN BROOKS UNIT #: [id number] ROOM: 515 DOCTOR: GERONIMO HONG MD,KATIE BIRTHDATE: [birth year] DOS: 04/19/2018 SUBJECTIVE: She was noted comfortable at this time, resting on the bed, using oxygen supplementation 4 liters nasal cannula. Denies symptoms of chest pain or any hemoptysis. The patient does not have any coughing or sputum expectoration. OBJECTIVE: VITAL SIGNS: Normal temperature, respiratory rate 16, heart rate 98, blood pressure 112/70, pulse oxygen saturation noted on 2 liters 93% saturation. HEAD, EYES, EARS, NOSE, AND THROAT: Head was atraumatic. Eyes nonicterus. NECK: Supple. CARDIOVASCULAR SYSTEM: S1, S2 is audible. LUNGS: The patient was noted without any wheezing or crackles. ABDOMEN: Noted soft and obese. EXTREMITIES: Without any new changes, still noted with edema of bilateral lower extremities. LABORATORY DATA: BMP today: BUN 21, creatinine was normal. PT/INR noted 1.6, PTT of 129, which was about the therapeutic range. CBC, hemoglobin 9.8. IMPRESSION: 1. The patient who has been currently noted with a hypercoagulability syndrome with improvement in mental status. 2. Lactic acidosis, resolved with resolution of acute kidney injury as well. 3. Bedbound status with past history of CVA as well. PLAN OF TREATMENT: Adjust the anticoagulation to maintain a therapeutic INR and to adjust to the PTT as well. Continue in the meantime other therapy, plan of management, care plan with other treatment and therapy, usual care. KATIE MELTON MD CM:PNTRANS [id number] KATIE HONG MD 04/19/18 1716 interface
--- NOTE | ~2018-04-14 | PR ---
[place], [place] PROGRESS NOTE NAME: YANN BROOKS UNIT #: [id number] ROOM: 515 DOCTOR: GERONIMO HONG MD,KATIE BIRTHDATE: [birth year] DOS: 04/20/2018 PULMONARY PROGRESS NOTE SUBJECTIVE: The patient continued getting heparin with Coumadin. The PT/INR noted therapeutic today. Denies symptoms of shortness of breath. Continue oxygen supplementation. There were no symptoms of coughing or chest pain reported. OBJECTIVE: VITAL SIGNS: For the patient, which have been recorded showed normal temperature, respiratory rate 16, heart rate 77, blood pressure 115/55. Pulse ox saturation on 2 liters 94% saturation. HEENT: Examination shows head was atraumatic. Eyes nonicterus. NECK: Supple. CARDIOVASCULAR: S1, S2 is audible. LUNGS: The patient noted without any wheezing or crackles. ABDOMEN: Soft, nontender. Bowel sounds present. EXTREMITIES: Showed persistence with moderate severe edema of lower extremities. IMPRESSION: The patient has stable respiratory status with resolution of acute kidney injury, lactic acidosis, chronic obesity, bedbound status. INR noted therapeutic today at 2.3. PLAN OF MANAGEMENT: The patient's heparin may be discontinued. Continue the anticoagulation, bronchodilators and oxygen treatment and other for the patient as in progress. No other change in treatment. Awaiting for the patient's placement in the retirement facility. KATIE MELTON MD CM:PNTRANS [phone] KATIE HONG MD 04/21/18 0132 interface
--- NOTE | ~2018-04-14 | PR ---
[place], [place] PROGRESS NOTE NAME: YANN BROOKS UNIT #: [id number] ROOM: [facility] DOCTOR: HUA MENDEZ MD BIRTHDATE: [birth year] DOS: 04/16/2018 SUBJECTIVE: The patient was seen and examined. She is awake and alert. She is on nasal cannula. She is in ICU and appears stable. She states she is feeling better. She has told me that she ate lunch today and has a fair appetite. PHYSICAL EXAMINATION: VITAL SIGNS: Showed temperature 98.2, pulse 103, respiratory rate 14, blood pressure 112/61. HEENT: Shows no JVD. LUNGS: Diminished breath sounds with no wheeze. HEART: Normal S1, S2. No rub, thrill or gallop. ABDOMEN: Soft, nontender. EXTREMITIES: Had trace edema. SKIN: Showed no rash. LABORATORY DATA: Sodium 141, potassium 2.8, CO2 36, BUN 54, creatinine 2.3, glucose 167. Lactic acid from yesterday was 6.4, calcium 6.3, phosphorus 3.7, magnesium 1.3, albumin 2.4, hemoglobin 8.3, white count of 5.6, platelets of 166. ASSESSMENT AND PLAN: 1. Acute kidney injury with unclear true baseline creatinine. The patient has improvement in her renal function. She is now off IV fluids. Her electrolytes are acceptable and actually are low in potassium and magnesium. Would replace. Would also replace calcium. Currently, there is no need for dialysis. Diuretics can be used as necessary, although her volume status currently is unclear. 2. Lactic acidosis. This seems to be improving. Would continue to trend the levels. 3. Anemia. Transfuse as felt needed. 4. Questionable urinary tract infection/sepsis. I did note she did have urine cultures that were positive. She is on antibiotics. [place], [place] PROGRESS NOTE NAME: YANN BROOKS UNIT #: [id number] ROOM: [facility] DOCTOR: HUA MENDEZ MD BIRTHDATE: [birth year] HUA MENDEZ MD CM:PNTRANS [phone] HUA MENDEZ MD 04/17/18 0304 interface
--- NOTE | ~2018-04-14 | CON ---
[place], [place] REPORT OF CONSULTATION NAME: YANN BROOKS UNIT #: [id number] ROOM: [facility] DOCTOR: EDEN BLACK MD BIRTHDATE: [birth year] DOS: 04/14/2018 REASON FOR CONSULTATION: Acute kidney injury, acidosis, hyperkalemia, shock. REQUESTING PHYSICIAN: Dr. Bauman. HISTORY OF PRESENT ILLNESS: The patient is a pleasant, but demented 72-year-old woman that was a resident of [facility]. She is awake and alert, but she is not able to provide a reliable medical history. She does not know where she is. She does not know where she lives. She states that all this happened after a prior stroke, but appears that she has been at [facility] now for at least a couple of weeks. Her admission date is listed at 03/29/18. She was reported to have nausea, vomiting, diarrhea and some increased confusion, slurred speech with blurry vision. She was brought to the Emergency Department and found to be hypotensive and found to have a severe coagulopathy with an INR of over 9. She was on Coumadin for unclear sources, acidosis was severe with a lactic acid of 19 and potassium of 7.2 and BUN and creatinine of 44 and 2.7. The bicarbonate on the chemistries was 7. She did have an EKG done in the Emergency Department, which on my read shows sinus rhythm with questionable junctional versus atrial fibrillation, tachycardia. She has some precordial ST depressions in V1, 2 and V3 and V4. There is T-wave inversions in aVL and 1, no ST elevations noted, otherwise. There is limited history available from her. She was on digoxin as well. I suspect all these were for atrial fibrillation. Her digoxin level was not toxic, however, surprising that maybe. She was on potassium supplementation as well as Bumex and the rest of her medications had metformin as a possible contributor here. She was not on an Aaron. She was on diltiazem from a blood pressure standpoint. Regardless, all of these have been discontinued at this point. She has been given fluids. She has been given 2 units of packed red blood cells and 2 units of FFP. Repeat lab is pending at this point. She appears to have stabilized from a blood pressure standpoint, though she was requiring norepinephrine drip at this point still. Her oxygen saturations are 100%. She is not in any distress or in any pain, but again she is confused. Also, of note, she was on gabapentin and full dose Zantac. She was on docusate and may have contributed some of the diarrhea she was reporting. Tube feeds were with 2 ira HN. She was on Ativan periodically as well for anxiety, though she is very comfortable and pleasant at this point. PAST MEDICAL HISTORY: Significant per the admitting paperwork of past stroke, anxiety disorder, failure to thrive, generalized weakness, disability both physical and age-related, COPD, dysphagia, unspecified heart failure, history of diabetes and hypertension, now hypotensive, hyperlipidemia and anemia and GERD. FAMILY HISTORY: Not obtainable at this time. SOCIAL HISTORY: She was a resident at [facility] at least for the last few weeks. REVIEW OF SYSTEMS: Cannot be reliably obtained from the patient, though she denies any acute pain at this time without reporting any chest pain or shortness of breath at this time. Does not even report any abdominal pain at the site of [place], [place] REPORT OF CONSULTATION NAME: YANN BROOKS UNIT #: [id number] ROOM: [facility] DOCTOR: EDEN BLACK MD BIRTHDATE: [birth year] her rectus sheath hematoma. PHYSICAL EXAMINATION: VITAL SIGNS: Currently in 100/70s on norepinephrine drip. Heart rates are in the 100s to one-teens, saturations are 100% on nasal cannula oxygen, respiratory rate is 22. GENERAL: She is an elderly woman lying in bed in the ICU, critical condition, but without any acute respiratory distress at this point. She has a Tracey catheter in place, which has no significant output noted at this time. HEAD AND NECK: Sclerae are anicteric. Skin turgor is poor. Oropharynx is slightly dry. NECK: No jugular venous distention or lymphadenopathy appreciated. No bruits. CARDIOVASCULAR: Irregularly irregular. No audible rub. LUNGS: Diminished lung sounds. EXTREMITIES: She has 1-2+ edema, appears to be chronic and actually looks to be decreased compared to what she might usually have. LABORATORY DATA: Laboratories and diagnostics were all reviewed, but Placed is down from what the nurses had available on the paper, white blood cell count was 23.7, hemoglobin 6.3, platelets 410,000. INR was 9.5. Digoxin 0.29. A1c 5.9. UA positive for 1+ blood, 1+ ketones, 1+ bilirubin, 3+ protein, 4+ bacteria, and 3+ leukocyte esterase with a culture pending. Sodium 136, potassium 7.2, chloride 100, bicarbonate 7, calcium 8.2, BUN 44, creatinine 2.69, total bilirubin 0.5, albumin 2.4. TSH 4.4. Troponin negative. Lipase 283. ASSESSMENT AND PLAN: 1. Severe acute kidney injury, possibly some chronic kidney disease at play, baseline unclear. Past records cannot be accessed at this time. Agree with Tracey catheter, strict intake and output, may require acute dialysis for acidosis and hyperkalemia, if these are not amenable to treatment medically. 2. Severe hyperkalemia, likely secondary to supplement acidosis and acute kidney injury. Digoxin levels are nontoxic at this time. So, at least that is helpful. Discontinue the use of potassium. Discontinue metformin and repeat labs. We will start a bicarbonate drip. Calcium and insulin has already been given. Would likely need to give some Kayexalate as well now. 3. Acidosis, severe. Follow trends and lactic acid as well as volume expansion. Discontinue metformin and we will provide isotonic bicarbonate infusion at0 a rate of 200 mL an hour at least for 3 liters and recheck labs closely. Follow up ABG will likely be needed sometime later this evening as well. 4. Anemia of blood loss and iatrogenic coagulopathy. Agree with correction of INR and blood products to replace hypovolemia. Case discussed with Dr. Bauman. [place], [place] REPORT OF CONSULTATION NAME: YANN BROOKS UNIT #: [id number] ROOM: [facility] DOCTOR: EDEN BLACK MD BIRTHDATE: [birth year] EDEN BLACK MD CM:CONSTR:REPORT OF CONSULTATION 1317 04/15/18 0112 interface
[~2018-04-14 06:16] MED LIST changes: -ACIDOPHILUS LACT1 GM MC; +ACIDOPHILUS LACT1 GM PO; +BACTRIM 400 MG-1 TAB PO; -BUMETANIDE1 MG PO; +BUMETANIDE2 MG PO; +DILTIAZEM HCL180 MG PO; +GOOD NEIGHBOR500 M2 PO; +HUMALOG100 UNIT/1 SQ; -LOPRESSOR25 MG PO; +MERREM IV1 GM IV; +NEURONTIN300 MG PO; -SYNTHROID,LEVO75 MCG PO; +Synthroid,Lev100 MCG PO; +TESSALON PERLE100 MG PO; +TOPROL XL25 MG PO; +ZOLOFT50 MG PO
[2018-04-14 07:27] LABS: HEMATOCRIT 21.9 % (37.0-47.0); HEMOGLOBIN 6.3 g/dl (12.0-16.0); MEAN CELL VOLUME 99.5 fl (81.0-99.0); MEAN CORPUSCULAR HGB 28.6 pg (27.0-31.0); MEAN CORPUSCULAR HGB CONC 28.8 g/dl (33.0-37.0); MEAN PLATELET VOLUME 11.7 fl (9.6-12.3); NUCLEATED RED BLOOD CELL 0.3 10*3/uL (0.0-0.0); NUCLEATED RED BLOOD CELL 1.2 % (0.0-0.0); PLATELET COUNT AUTOMATED 410 10*3/uL (130-400); RED CELL DISTRI WIDTH 20.2 % (0-14.5); WHITE BLOOD COUNT 23.7 10*3/uL (4.8-10.8)
[2018-04-14 07:44] LABS: ACT PARTIAL THROMBO TIME 63.3 SECONDS (20.8-31.5); BASOPHILS 2 % (0-1); TOTAL CELLS COUNTED 100 #CELLS
[2018-04-14 07:45] LABS: ACANTHOCYTES FEW; BURR CELLS MODERATE; OVALOCYTES FEW; PLATELET SUFFICIENCY HIGH (NORMAL); POLYCHROMASIA MODERATE
[2018-04-14 07:48] LABS: ALBUMIN 2.4 gm/dl (3.1-4.5); ALKALINE PHOSPHATASE 107 U/L (45-117); BUN 44 mg/dl (7-24); CHLORIDE 100 mmol/L (98-107); CREATININE 2.69 mg/dL (0.55-1.02); INTERNATIONAL NORM RATIO 9.5 (2.0-3.5); LIPASE 283 U/L (73-393); SGOT/AST 42 IU/L (3-35); SGPT/ALT 36 U/L (12-78); SODIUM 136 mmol/L (136-145); TOTAL PROTEIN 6.4 gm/dL (6.4-8.2)
[2018-04-14 07:52] LABS: POTASSIUM 7.2 mmol/L (3.5-5.1); TROPONIN I < 0.015 ng/ml (<0.045)
[2018-04-14 08:17] LABS: BILIRUBIN 1+ (NEGATIVE); BLOOD 1+ (NEGATIVE); CLARITY CLOUDY (CLEAR); COLOR YELLOW (YELLOW); GLUCOSE NEGATIVE (NEGATIVE); KETONE 1+ (NEGATIVE); LEUKO ESTERASE 3+ (NEGATIVE); NITRITE NEGATIVE (NEGATIVE); SPECIFIC GRAVITY >= 1.030 (1.005-1.030); UROBILINOGEN 0.2 E.U./dl (0.2-1.0)
[2018-04-14] MEDS ORDERED: ATIVAN0.5 MG PO (08:30)
[2018-04-14] MEDS ORDERED: BREO ELLIPTA 11 EACH INH (08:31)
[2018-04-14 08:44] LABS: BACTERIA 4+; EPITHELIAL CELLS TNTC; WBC TNTC wbc/hpf (0-5)
[2018-04-14 09:18] LABS: ABG HCO3 5.3 mmol/l (22-26); ABG O2 SATURATION 92.8 % (95-97); ARTERIAL BLOOD GAS PCO2 19.4 mmHg (35-45); ARTERIAL BLOOD GAS PO2 87.8 mmHg (80-90)
[2018-04-14 09:27] LABS: ABG BASE EXCESS -23.5 mmol/L (-2.0-2.0)
[2018-04-14 09:28] LABS: ARTERIAL BLOOD GAS PH 7.054 (7.35-7.45)
[2018-04-14] MEDS ORDERED: COUMADIN5 M2 PO (09:55)
[2018-04-14] MEDS ORDERED: Coumadin2.5 MG PO (09:56)
[2018-04-14] MEDS ORDERED: GLUCOPHAGE1000 MG PO (09:59)
[2018-04-14] MEDS ORDERED: ZANTAC 300300 MG PO (10:00)
[2018-04-14] MEDS ORDERED: COLACE100 MG PO (10:02)
[2018-04-14] MEDS ORDERED: IMODIUM A-D2 M2 PO (10:09)
[2018-04-14] MEDS ORDERED: OXYCODONE HCL5 M1 PO (10:11)
[2018-04-14] MEDS ORDERED: Zofran4 MG SL (10:14)
[2018-04-14 13:23] LABS: HEMATOCRIT 28.7 % (37.0-47.0); HEMOGLOBIN 8.8 g/dl (12.0-16.0); MEAN CELL VOLUME 93.5 fl (81.0-99.0); MEAN CORPUSCULAR HGB 28.7 pg (27.0-31.0); MEAN CORPUSCULAR HGB CONC 30.7 g/dl (33.0-37.0); MEAN PLATELET VOLUME 11.8 fl (9.6-12.3); NUCLEATED RED BLOOD CELL 0.3 10*3/uL (0.0-0.0); NUCLEATED RED BLOOD CELL 1.2 % (0.0-0.0); PLATELET COUNT AUTOMATED 294 10*3/uL (130-400); RED BLOOD COUNT 3.07 10*6/uL (4.10-5.10); RED CELL DISTRI WIDTH 17.1 % (0-14.5); WHITE BLOOD COUNT 24.6 10*3/uL (4.8-10.8)
[2018-04-14 13:37] LABS: ALBUMIN 2.7 gm/dl (3.1-4.5); CREATININE 2.73 mg/dL (0.55-1.02); TOTAL PROTEIN 6.5 gm/dL (6.4-8.2)
[2018-04-14 13:38] LABS: TROPONIN I 0.016 ng/ml (<0.045)
[2018-04-14 13:40] LABS: ACANTHOCYTES FEW; BURR CELLS MANY; PLATELET SUFFICIENCY NORMAL (NORMAL); POLYCHROMASIA SLIGHT; POTASSIUM 6.4 mmol/L (3.5-5.1); TOTAL CELLS COUNTED 100 #CELLS
[2018-04-14] MEDS ORDERED: METFORMIN HYDR500 MG PO (13:56)
[2018-04-14] MEDS ORDERED: TWOCAL HN 237237 ML PO (14:01)
[2018-04-14 18:34] LABS: HEMATOCRIT 26.5 % (37.0-47.0); HEMOGLOBIN 8.2 g/dl (12.0-16.0); MEAN CORPUSCULAR HGB 27.7 pg (27.0-31.0); MEAN CORPUSCULAR HGB CONC 30.9 g/dl (33.0-37.0); MEAN PLATELET VOLUME 11.2 fl (9.6-12.3); NUCLEATED RED BLOOD CELL 0.2 10*3/uL (0.0-0.0); NUCLEATED RED BLOOD CELL 1.2 % (0.0-0.0); PLATELET COUNT AUTOMATED 242 10*3/uL (130-400); RED BLOOD COUNT 2.96 10*6/uL (4.10-5.10); RED CELL DISTRI WIDTH 17.4 % (0-14.5); WHITE BLOOD COUNT 17.6 10*3/uL (4.8-10.8)
[2018-04-14 18:40] LABS: MEAN CELL VOLUME 89.5 fl (81.0-99.0)
[2018-04-14 18:43] LABS: ALBUMIN 2.7 gm/dl (3.1-4.5); CREATININE 2.79 mg/dL (0.55-1.02); POTASSIUM 5.9 mmol/L (3.5-5.1); TOTAL PROTEIN 6.2 gm/dL (6.4-8.2)
[2018-04-14 18:49] LABS: INTERNATIONAL NORM RATIO 3.4 (2.0-3.5)
[2018-04-14 18:50] LABS: PLATELET SUFFICIENCY NORMAL (NORMAL); TOTAL CELLS COUNTED 100 #CELLS
[2018-04-14 18:51] LABS: BURR CELLS MODERATE; POLYCHROMASIA SLIGHT
[2018-04-14 18:53] LABS: OVALOCYTES FEW
[2018-04-15] VITALS (11 sets, daily range): BP systolic 97–118; BP diastolic 46–64
[2018-04-15 06:52] LABS: ABG BASE EXCESS 0.7 mmol/L (-2.0-2.0); ABG HCO3 23.8 mmol/l (22-26); ARTERIAL BLOOD GAS PCO2 32.6 mmHg (35-45); ARTERIAL BLOOD GAS PH 7.472 (7.35-7.45); ARTERIAL BLOOD GAS PO2 56.6 mmHg (80-90)
[2018-04-15 08:11] LABS: HEMATOCRIT 22.5 % (37.0-47.0); HEMOGLOBIN 7.2 g/dl (12.0-16.0); LYMPH # 0.5 10*3/uL (1.3-4.4); LYMPH % 7.1 % (27.0-41.0); MEAN CORPUSCULAR HGB 27.6 pg (27.0-31.0); MEAN PLATELET VOLUME 11.3 fl (9.6-12.3); MONO # 0.6 10*3/uL (0.1-1.0); MONO % 8.4 % (3.0-9.0); NEUT # 6.3 10*3/uL (2.3-7.9); NEUT % 83.6 % (47.0-73.0); NUCLEATED RED BLOOD CELL 0.1 10*3/uL (0.0-0.0); NUCLEATED RED BLOOD CELL 0.9 % (0.0-0.0); PLATELET COUNT AUTOMATED 186 10*3/uL (130-400); RED BLOOD COUNT 2.61 10*6/uL (4.10-5.10); RED CELL DISTRI WIDTH 17.7 % (0-14.5); WHITE BLOOD COUNT 7.6 10*3/uL (4.8-10.8)
[2018-04-15 08:14] LABS: MEAN CELL VOLUME 86.2 fl (81.0-99.0)
[2018-04-15 08:29] LABS: ACT PARTIAL THROMBO TIME 36.7 SECONDS (20.8-31.5)
[2018-04-15 08:30] LABS: ALBUMIN 2.4 gm/dl (3.1-4.5); CREATININE 2.8 mg/dL (0.55-1.02); FREE T4 1.26 ng/dl (0.76-1.46); PHOSPHOROUS 6.1 mg/dL (2.5-4.9); TOTAL PROTEIN 5.5 gm/dL (6.4-8.2)
[2018-04-15 08:40] LABS: POTASSIUM 3.5 mmol/L (3.5-5.1)
[2018-04-15 08:45] LABS: INTERNATIONAL NORM RATIO 5.1 (2.0-3.5)
[2018-04-15 09:10] LABS: VITAMIN D, 25-HYDROXY 14.5 ng/mL (30-100)
[2018-04-15 15:56] LABS: EOS % 0.1 % (1.0-4.0); HEMATOCRIT 26.9 % (37.0-47.0); HEMOGLOBIN 8.9 g/dl (12.0-16.0); LYMPH # 0.5 10*3/uL (1.3-4.4); LYMPH % 6.4 % (27.0-41.0); MEAN CELL VOLUME 85.1 fl (81.0-99.0); MEAN CORPUSCULAR HGB 28.2 pg (27.0-31.0); MEAN CORPUSCULAR HGB CONC 33.1 g/dl (33.0-37.0); MEAN PLATELET VOLUME 10.8 fl (9.6-12.3); MONO # 0.7 10*3/uL (0.1-1.0); MONO % 8.7 % (3.0-9.0); NEUT # 6.6 10*3/uL (2.3-7.9); NUCLEATED RED BLOOD CELL 0.1 10*3/uL (0.0-0.0); PLATELET COUNT AUTOMATED 185 10*3/uL (130-400); RED BLOOD COUNT 3.16 10*6/uL (4.10-5.10); RED CELL DISTRI WIDTH 17.2 % (0-14.5); WHITE BLOOD COUNT 7.8 10*3/uL (4.8-10.8)
[2018-04-15 16:08] LABS: CREATININE 2.77 mg/dL (0.55-1.02); POTASSIUM 3.1 mmol/L (3.5-5.1)
[2018-04-15 16:11] LABS: INTERNATIONAL NORM RATIO 5.2 (2.0-3.5)
[2018-04-16] VITALS: BP 97/46
[2018-04-16 04:00] VITALS: BP 98/45
[2018-04-16 06:07] LABS: BASO % 0.2 % (0.0-1.0); EOS % 0.2 % (1.0-4.0); HEMATOCRIT 25.6 % (37.0-47.0); HEMOGLOBIN 8.3 g/dl (12.0-16.0); LYMPH # 0.6 10*3/uL (1.3-4.4); MEAN CELL VOLUME 85.6 fl (81.0-99.0); MEAN CORPUSCULAR HGB 27.8 pg (27.0-31.0); MEAN CORPUSCULAR HGB CONC 32.4 g/dl (33.0-37.0); MEAN PLATELET VOLUME 11.7 fl (9.6-12.3); MONO # 0.6 10*3/uL (0.1-1.0); MONO % 10.3 % (3.0-9.0); NEUT # 4.4 10*3/uL (2.3-7.9); NEUT % 77.6 % (47.0-73.0); NUCLEATED RED BLOOD CELL 0.7 % (0.0-0.0); PLATELET COUNT AUTOMATED 166 10*3/uL (130-400); RED BLOOD COUNT 2.99 10*6/uL (4.10-5.10); RED CELL DISTRI WIDTH 17.2 % (0-14.5); WHITE BLOOD COUNT 5.6 10*3/uL (4.8-10.8)
[2018-04-16 06:32] LABS: ALBUMIN 2.4 gm/dl (3.1-4.5); POTASSIUM 2.8 mmol/L (3.5-5.1)
[2018-04-16 06:36] LABS: CREATININE 2.33 mg/dL (0.55-1.02); PHOSPHOROUS 3.7 mg/dL (2.5-4.9); TOTAL PROTEIN 5.8 gm/dL (6.4-8.2)
[2018-04-16 08:00] VITALS: BP 103/65
[2018-04-16 11:48] VITALS: BP 112/61
[2018-04-16 16:00] VITALS: BP 94/48
[2018-04-16 20:00] VITALS: BP 96/50
[2018-04-17] VITALS (7 sets, daily range): BP systolic 101–137; BP diastolic 44–75
[2018-04-17 06:03] LABS: ALBUMIN 2.2 gm/dl (3.1-4.5); CREATININE 1.26 mg/dL (0.55-1.02); PHOSPHOROUS 1.7 mg/dL (2.5-4.9); TOTAL PROTEIN 5.4 gm/dL (6.4-8.2)
[2018-04-17 06:05] LABS: EOS % 0.7 % (1.0-4.0); HEMATOCRIT 26.3 % (37.0-47.0); HEMOGLOBIN 8.4 g/dl (12.0-16.0); LYMPH # 0.6 10*3/uL (1.3-4.4); LYMPH % 10.9 % (27.0-41.0); MEAN CELL VOLUME 87.7 fl (81.0-99.0); MEAN CORPUSCULAR HGB CONC 31.9 g/dl (33.0-37.0); MEAN PLATELET VOLUME 11.1 fl (9.6-12.3); MONO # 0.5 10*3/uL (0.1-1.0); MONO % 8.9 % (3.0-9.0); NEUT # 4.3 10*3/uL (2.3-7.9); NEUT % 78.8 % (47.0-73.0); PLATELET COUNT AUTOMATED 159 10*3/uL (130-400); RED CELL DISTRI WIDTH 16.9 % (0-14.5); WHITE BLOOD COUNT 5.4 10*3/uL (4.8-10.8)
[2018-04-17 06:07] LABS: POTASSIUM 2.4 mmol/L (3.5-5.1)
[2018-04-17 06:10] LABS: INTERNATIONAL NORM RATIO 1.2 (2.0-3.5)
[2018-04-17 06:13] LABS: DIGOXIN 0.14 ng/ml (0.8-2.0)
[2018-04-17 13:07] LABS: BUN 33 mg/dl (7-24); CHLORIDE 99 mmol/L (98-107); CREATININE 1.05 mg/dL (0.55-1.02); POTASSIUM 2.8 mmol/L (3.5-5.1); SODIUM 139 mmol/L (136-145)
[2018-04-18] VITALS: BP 100/59
[2018-04-18 00:32] LABS: INTERNATIONAL NORM RATIO 1.3 (2.0-3.5)
[2018-04-18 00:34] LABS: ACT PARTIAL THROMBO TIME 116.4 SECONDS (20.8-31.5)
[2018-04-18 08:00] VITALS: BP 119/84
[2018-04-18 08:49] LABS: BASO % 0.2 % (0.0-1.0); EOS # 0.1 10*3/uL (0.0-0.4); EOS % 1.1 % (1.0-4.0); HEMATOCRIT 29.9 % (37.0-47.0); HEMOGLOBIN 9.4 g/dl (12.0-16.0); LYMPH # 0.8 10*3/uL (1.3-4.4); LYMPH % 12.6 % (27.0-41.0); MEAN CELL VOLUME 90.1 fl (81.0-99.0); MEAN CORPUSCULAR HGB 28.3 pg (27.0-31.0); MEAN CORPUSCULAR HGB CONC 31.4 g/dl (33.0-37.0); MEAN PLATELET VOLUME 10.9 fl (9.6-12.3); MONO # 0.5 10*3/uL (0.1-1.0); MONO % 7.9 % (3.0-9.0); NEUT # 5.1 10*3/uL (2.3-7.9); NEUT % 77.1 % (47.0-73.0); RED BLOOD COUNT 3.32 10*6/uL (4.10-5.10); RED CELL DISTRI WIDTH 17.3 % (0-14.5); WHITE BLOOD COUNT 6.6 10*3/uL (4.8-10.8)
[2018-04-18 08:55] LABS: INTERNATIONAL NORM RATIO 1.2 (2.0-3.5)
[2018-04-18 09:01] LABS: ALBUMIN 2.2 gm/dl (3.1-4.5); ALKALINE PHOSPHATASE 117 U/L (45-117); BUN 26 mg/dl (7-24); CHLORIDE 100 mmol/L (98-107); CREATININE 0.64 mg/dL (0.55-1.02); PHOSPHOROUS 1.6 mg/dL (2.5-4.9); POTASSIUM 2.8 mmol/L (3.5-5.1); SGOT/AST 25 IU/L (3-35); SGPT/ALT 59 U/L (12-78); SODIUM 141 mmol/L (136-145); TOTAL PROTEIN 5.9 gm/dL (6.4-8.2)
[2018-04-18 09:46] LABS: PLATELET COUNT AUTOMATED 210 10*3/uL (130-400)
[2018-04-18 12:00] VITALS: BP 107/71
[2018-04-18 16:00] VITALS: BP 113/95
[2018-04-18 20:00] VITALS: BP 111/90
[2018-04-19] VITALS: BP 111/68
[2018-04-19 08:00] VITALS: BP 112/70
[2018-04-19 08:58] LABS: BASO % 0.1 % (0.0-1.0); EOS # 0.1 10*3/uL (0.0-0.4); EOS % 1.7 % (1.0-4.0); HEMATOCRIT 31.1 % (37.0-47.0); HEMOGLOBIN 9.8 g/dl (12.0-16.0); LYMPH # 0.9 10*3/uL (1.3-4.4); LYMPH % 12.3 % (27.0-41.0); MEAN CELL VOLUME 90.4 fl (81.0-99.0); MEAN CORPUSCULAR HGB 28.5 pg (27.0-31.0); MEAN CORPUSCULAR HGB CONC 31.5 g/dl (33.0-37.0); MEAN PLATELET VOLUME 10.6 fl (9.6-12.3); MONO # 0.8 10*3/uL (0.1-1.0); NEUT # 5.2 10*3/uL (2.3-7.9); NEUT % 73.8 % (47.0-73.0); NUCLEATED RED BLOOD CELL 0.3 % (0.0-0.0); PLATELET COUNT AUTOMATED 225 10*3/uL (130-400); RED BLOOD COUNT 3.44 10*6/uL (4.10-5.10); RED CELL DISTRI WIDTH 18.1 % (0-14.5)
[2018-04-19 09:07] LABS: ALBUMIN 2.2 gm/dl (3.1-4.5); BUN 21 mg/dl (7-24); CHLORIDE 102 mmol/L (98-107); POTASSIUM 3.6 mmol/L (3.5-5.1); SGPT/ALT 48 U/L (12-78); SODIUM 137 mmol/L (136-145)
[2018-04-19 09:10] LABS: ALKALINE PHOSPHATASE 135 U/L (45-117); CREATININE 0.48 mg/dL (0.55-1.02); PHOSPHOROUS 2.1 mg/dL (2.5-4.9); SGOT/AST 27 IU/L (3-35); TOTAL PROTEIN 5.9 gm/dL (6.4-8.2)
[2018-04-19 09:34] LABS: INTERNATIONAL NORM RATIO 1.6 (2.0-3.5)
[2018-04-19 10:15] LABS: ACT PARTIAL THROMBO TIME 129.4 SECONDS (20.8-31.5)
[2018-04-19 12:00] VITALS: BP 102/69
[2018-04-19 16:00] VITALS: BP 95/49
[2018-04-19 20:00] VITALS: BP 107/53
[2018-04-20] VITALS: BP 105/55
[2018-04-20 08:00] VITALS: BP 139/72
[2018-04-20 08:02] LABS: INTERNATIONAL NORM RATIO 2.3 (2.0-3.5)
[2018-04-20 12:00] VITALS: BP 137/65
[2018-04-20 16:00] VITALS: BP 115/65
== END 2018-04-20 20:30 | disposition other institution (70) | DRG 871 ==
LOC: ED 06:16 → ICCU 10:28 → EDHOLD 10:28 → ICCU 10:32 → 5E 04-17 11:43
PROVIDERS: Emergency Medicine; Emergency Medicine Emergency Medical Services; Family Medicine; Internal Medicine; Internal Medicine Hospice and Palliative Medicine; Internal Medicine Nephrology
PROC: 30233L1 Transfusion of Nonautologous Fresh Plasma into Peripheral Vein, Percutaneous Approach (ICD-10-PCS; principal; 2018-04-14)
PROC: B546ZZA Ultrasonography of Right Subclavian Vein, Guidance (ICD-10-PCS; principal; 2018-04-14)
PROC: 30233N1 Transfusion of Nonautologous Red Blood Cells into Peripheral Vein, Percutaneous Approach (ICD-10-PCS; principal; 2018-04-14)
PROC: 30233K1 Transfusion of Nonautologous Frozen Plasma into Peripheral Vein, Percutaneous Approach (ICD-10-PCS; principal; 2018-04-14)
PROC: 05H533Z Insertion of Infusion Device into Right Subclavian Vein, Percutaneous Approach (ICD-10-PCS; principal; 2018-04-14)
PROC: 02HV33Z Insertion of Infusion Device into Superior Vena Cava, Percutaneous Approach (ICD-10-PCS; 2018-04-15)
PROC: B548ZZA Ultrasonography of Superior Vena Cava, Guidance (ICD-10-PCS; 2018-04-15)
PROC: 05PYX3Z Removal of Infusion Device from Upper Vein, External Approach (ICD-10-PCS; 2018-04-15)
DX: A41.9 Sepsis, unspecified organism (principal); E43 Unspecified severe protein-calorie malnutrition; R65.21 Severe sepsis with septic shock; J96.11 Chronic respiratory failure with hypoxia; R34 Anuria and oliguria; N17.9 Acute kidney failure, unspecified; K86.2 Cyst of pancreas; E11.65 Type 2 diabetes mellitus with hyperglycemia; D68.9 Coagulation defect, unspecified; D68.61 Antiphospholipid syndrome; D62 Acute posthemorrhagic anemia; N39.0 Urinary tract infection, site not specified; I50.32 Chronic diastolic (congestive) heart failure; I69.354 Hemiplegia and hemiparesis following cerebral infarction affecting left non-dominant side; E87.5 Hyperkalemia; I48.2 Chronic atrial fibrillation; R74.0 Nonspecific elevation of levels of transaminase and lactic acid dehydrogenase [LDH]; D47.3 Essential (hemorrhagic) thrombocythemia; I11.0 Hypertensive heart disease with heart failure; E66.01 Morbid (severe) obesity due to excess calories; G47.33 Obstructive sleep apnea (adult) (pediatric); E03.9 Hypothyroidism, unspecified; F32.9 Major depressive disorder, single episode, unspecified; J44.9 Chronic obstructive pulmonary disease, unspecified; E87.6 Hypokalemia; D63.8 Anemia in other chronic diseases classified elsewhere; S70.01XA Contusion of right hip, initial encounter; X58.XXXA Exposure to other specified factors, initial encounter; F03.90 Unspecified dementia, unspecified severity, without behavioral disturbance, psychotic disturbance, mood disturbance, and anxiety; F41.9 Anxiety disorder, unspecified; K21.9 Gastro-esophageal reflux disease without esophagitis; Z99.81 Dependence on supplemental oxygen; Z87.440 Personal history of urinary (tract) infections; Z82.49 Family history of ischemic heart disease and other diseases of the circulatory system; Z79.84 Long term (current) use of oral hypoglycemic drugs; Z79.01 Long term (current) use of anticoagulants; Z79.4 Long term (current) use of insulin; Z90.49 Acquired absence of other specified parts of digestive tract; Z98.891 History of uterine scar from previous surgery; Z74.01 Bed confinement status; Y93.89 Activity, other specified; Y92.89 Other specified places as the place of occurrence of the external cause; Y99.8 Other external cause status; Z68.35 Body mass index [BMI] 35.0-35.9, adult

== ENCOUNTER 2019-02-01 17:32 | Inpatient (IN) | payer MEDICARE, MEDICAID ==
[~2019-02-01] VITALS: Ht 165.1 cm; Wt 100.6 kg
--- NOTE | ~2019-02-01 | CON ---
[place], [place] REPORT OF CONSULTATION NAME: YANN BROOKS UNIT #: [id number] ROOM: 517 DOCTOR: KATIE DHILLON MD BIRTHDATE: [birth year] DOS: 02/02/2019 PULMONARY CONSULTATION, EVALUATION AND MANAGEMENT CONSULTATION REQUESTED BY: Hospitalist service. REASON FOR CONSULTATION: For the assessment of the respiratory status of the patient with current acute influenza infection as well. HISTORY OF PRESENT ILLNESS: This 73-year-old white female who is a long-term resident of [facility], admitted to the hospital as the patient has reported with symptoms of increased shortness of breath and also assessed and noted with hypoxia. The patient has been brought to the hospital and admitted to the hospital for further care. She was also reporting increased edema in the lower extremity. History of the patient noted quite limited as the patient noted forgetfulness, not able to give me any history. Majority of the history obtained by the documentation by the ED physician notes as well as past review of medical records as seen in the past few years ago. The patient does report symptoms of cough, noted nonproductive. The patient reported some symptoms of wheezing as well. REVIEW OF SYSTEMS: CONSTITUTIONAL SYMPTOMS: The patient does report symptoms of fever or chills. EYES: Denies burning, redness, or tenderness. EARS, NOSE, THROAT SYMPTOMS: Denies sore throat, hoarseness, otalgia, postnasal drainage or epistaxis. CARDIOVASCULAR SYSTEM: Denies angina pain. Noted with chronic edema of the lower extremities, which noted decreased for the patient as well. GASTROINTESTINAL SYMPTOMS: Denies dysphagia, nausea, vomiting, diarrhea, abdominal pain, hematemesis, or melena. GENITOURINARY SYMPTOMS: No dysuria, suprapubic pain, or hematuria. MUSCULOSKELETAL: Denies joint pain. The patient noted impaired mobility from a stroke and she remains bedbound. CENTRAL NERVOUS SYSTEM: Past history of left hemiparesis in 2016. PAST MEDICAL HISTORY: 1. Congestive heart failure with diastolic dysfunction. 2. Past stroke with persistent right hemiparesis/hemiplegia. 3. Chronic bedbound status. 4. Obstructive sleep apnea disorder, nonadherence with the treatment. 5. Gastroesophageal reflux. 6. Permanent atrial fibrillation. 7. Iron deficiency anemia. 8. Antiphospholipid syndrome with hypercoagulability. 9. Chronic severe obesity. 10. Hypothyroidism. 11. Iron deficiency anemia. 12. Type 2 diabetes mellitus. PAST SURGICAL HISTORY: [place], [place] REPORT OF CONSULTATION NAME: YANN BROOKS UNIT #: [id number] ROOM: [facility] DOCTOR: KATIE DHILLON MD BIRTHDATE: [birth year] 1. . 2. Cholecystectomy. 3. Colonoscopy. SOCIAL HISTORY: The patient is , resident of a nursing facility. There is no history of alcohol use, illicit drug use or tobacco use was known. FAMILY HISTORY: The patient's father at 60 years due to complication of myocardial infarction. Mother 60 years due to complication of myocardial infarction. CURRENT MEDICATIONS: Administered noted as Lovenox for DVT prophylaxis, magnesium hydroxide, Pulmicort Respules, Tamiflu 75 mg p.o. b.i.d., [place] p.r.n. use, temazepam p.r.n. use, naproxen p.o. 220 mg b.i.d., total of 4 doses ordered. The patient has been given previously yesterday as vancomycin and Levaquin. DRUG ALLERGIES: The patient was noted as no known drug allergies. PHYSICAL EXAMINATION: GENERAL: A 73-year-old female who has been currently noted awake and alert and cooperative with examination. Height 5 feet 5 inches, weight of 223 pounds, BMI 37. VITAL SIGNS: Temperature 101.6 degrees Fahrenheit noted on admission. Currently, the patient is afebrile. Respiratory rate 18-24, heart rate 74-59, blood pressure 126/56-96/52. Pulse oxygen saturation recorded as 94% saturation, 100% nonrebreather mask previously. HEENT: Examination shows chronic obesity. NECK: Supple. Head was atraumatic. CARDIOVASCULAR SYSTEM: S1, S2 audible. LUNGS: Limited exam with decreased breath sounds. ABDOMEN: Soft, nontender. Bowel sounds present. EXTREMITIES: The patient was noted with 3+ pitting edema bilateral lower extremities. MUSCULOSKELETAL: Also noted with chronic mild kyphoscoliosis of the thoracic and upper lumbar spine. CENTRAL NERVOUS SYSTEM: Right hemiparesis/hemiplegia. LABORATORY DATA: Assess for this consultation; CBC that was done on 02/01/2019; WBC count normal, hemoglobin and hematocrit normal, platelet count normal. Lactic acid 3.1 on admission, follow up 1.3. CMP that was done on admission on 02/01/2019; glucose 162, BUN and creatinine was normal. Troponin first set was normal. Second set was normal. Influenza A and B nasal washing antigen, positive influenza A rapid testing. CBC this morning; Depakote 2.5, hemoglobin and hematocrit normal, platelet count were normal. BMP was done on this admission as well. Today; glucose 147, BUN and creatinine was normal. The chest x-ray was done, does not show any acute gross pulmonary infiltration, mild increase of pulmonary interstitial markings. IMPRESSION: [place], [place] REPORT OF CONSULTATION NAME: YANN BROOKS UNIT #: [id number] ROOM: [facility] DOCTOR: KATIE DHILLON MD BIRTHDATE: [birth year] 1. The patient who has been admitted to the hospital was noted with current finding consistent with acute influenza A infection without any gross evidence of pneumonia. 2. Edema of lower extremities, some of it may be chronic with congestive heart failure, diastolic function could not be considered with the current chest x-ray as well. 3. Chronic bedbound status with hemiparesis as well. 4. Chronic hypercoagulability disorder as well. 5. Past history of cerebrovascular accident with right hemiparesis. PLAN OF MANAGEMENT: Continue the patient on Tamiflu and bronchodilators. Monitor the respiratory status as well. The bronchodilators has been added to the treatment as a DuoNeb q.8 hours to help mobilize secretions. Consider giving the diuretic orally and/or intravenously for current edema in the lower extremities. Consider ultrasound of the lower extremity as well to exclude deep venous thrombosis of the lower extremity because of severe edema. Other therapy, plan of management, care plan with additional treatment changes will be ordered based on the progression of the illness. KATIE MELTON MD CM:CONSTR:REPORT OF CONSULTATION 1438 02/03/19 0027 interface
--- NOTE | ~2019-02-01 | EKG ---
[place], [place] ELECTROCARDIOGRAM REPORT NAME: YANN BROOKS UNIT #: [id number] ROOM: 517 DOCTOR: SELINA DRAFT REPORT BIRTHDATE: [birth year] [facility] Test Date: 2019-02-01 Test Time: 23:24:56 Pat Name: YANN BROOKS Department: Room: [facility] Gender: F Multi Operation Machine Operator: BROOKLYNN MORENO : 1945 Requested By: CANDIDO GALEANO Order Number: [id number] Reading MD: Krista Daniel Measurements Intervals [place] Rate: 80 P: MO: QRS: -85 QRSD: 99 T: 247 QT: 380 QTc: 439 Interpretive Statements Atrial fibrillation Ventricular premature complex Left anterior fascicular block Borderline low voltage, extremity leads Abnormal R-wave progression, late transition Anterolateral and inferior ST/T changes No previous ECG available for comparison Electronically Signed On 02-03-2019 11:03:49 PDT by Krista Daniel CM:EKGRPT:ELECTROCARDIOGRAM REPORT [id number] CANDIDO ALVA DRAFT REPORT CANDIDO GALEANO DO
--- NOTE | ~2019-02-01 | EKG ---
[place], [place] ELECTROCARDIOGRAM REPORT NAME: YANN BROOKS UNIT #: [id number] ROOM: 517 DOCTOR: SELINA DRAFT REPORT BIRTHDATE: [birth year] [facility] Test Date: 2019-02-01 Test Time: 17:35:26 Pat Name: YANN BROOKS Department: Room: [facility] Gender: F Teacher Of The Hearing Impaired: Radha Salas : 1945 Requested By: CANDIDO GALEANO Order Number: [id number] Reading MD: Krista Daniel Measurements Intervals [place] Rate: 93 P: 0 MN: 147 QRS: -85 QRSD: 90 T: 201 QT: 403 QTc: 502 Interpretive Statements A Fib Left nterior fascicular block Abnormal R-wave progression, late transition Repol abnrm suggests ischemia, diffuse leads Prolonged QT interval ST depression V1-V3, suggest recording posterior leads No previous ECG available for comparison Electronically Signed On 02-03-2019 10:59:00 PDT by Krista Daniel CM:EKGRPT:ELECTROCARDIOGRAM REPORT [id number] CANDIDO ALVA DRAFT REPORT CANDIDO GALEANO DO
--- NOTE | ~2019-02-01 | PR ---
[place], [place] PROGRESS NOTE [id number] UN[facility] #: [id number] ROOM: 517 DOCTOR: GERONIMO HONG MD,KATIE BIRTHDATE: [birth year] DOS: 02/03/2019 PULMONARY PROGRESS NOTE SUBJECTIVE: The patient is still complaining of heaviness in the lower extremities and discomfort. Stating that she is not passing much urine and would like to have something ordered for that. Shortness of breath has been noted stable. There were no symptoms of coughing or wheezing. She denies symptoms of chest pain. She remains bedbound. She is transferred from Intensive Care Unit to the medical floor at this time, comfortably resting. She denies symptoms of headache or diplopia. Denies symptoms of nausea, vomiting, or diarrhea. OBJECTIVE: VITAL SIGNS: Which was recorded showed temperature noted as normal, respiratory rate recorded as 18, heart rate of 92, blood pressure 122/60. Pulse oxygen saturation recorded on 4 liters nasal cannula was 94% saturation. Intake is 320, output not documented. HEENT: Shows head was atraumatic, eyes nonicterus. NECK: Supple. CARDIOVASCULAR: S1 and S2 audible. LUNGS: Anterolateral auscultation noted decreased breath sounds. There was no wheezing. ABDOMEN: Soft with chronic obesity. CENTRAL NERVOUS SYSTEM: Chronic right hemiparesis/hemiplegia. MUSCULOSKELETAL: Noted chronic gross deformities. SKIN: No lesions or rashes. EXTREMITIES: Noted 2-3+ pitting edema of lower extremities without any evidence of cellulitis. There was no evidence of clubbing or cyanosis. LABORATORY DATA: INR today 1.3, which is subtherapeutic. CBC of 02/03/2019, WBC 2.7, hemoglobin and hematocrit normal, platelet count was normal. BMP that was done on 02/03/2019, glucose 139, BUN and creatinine normal, potassium 3.1. IMPRESSION: 1. Peripheral edema. 2. Congestive heart failure. 3. Acute on chronic hypoxic respiratory failure with decreased oxygen requirement noted from 15 liters nasal cannula supplementation to currently on 4 liters nasal cannula. 4. Bedbound status. 5. Cerebrovascular accident with chronic right hemiparesis and hemiplegia. PLAN OF MANAGEMENT: The patient has been ordered BiPAP that will be continued nighttime and p.r.n. during the day. Diuretic will be ordered intravenously as well. Supplementation of potassium as well. Continue to make changes in Coumadin to get the PT/INR therapeutic level. Completion of Tamiflu for acute influenza A infection. Other therapy, plan of management, additional treatment changes. Usual care. Other supportive therapy, plan of management and care. [place], [place] PROGRESS NOTE NAME: YANN BROOKS UNIT #: [id number] ROOM: [facility] DOCTOR: KATIE DHILLON MD BIRTHDATE: [birth year] KATIE MELTON MD CM:PNTRANS [id number] KATIE HONG MD 02/04/19 0336 interface
--- NOTE | ~2019-02-01 | PR ---
[place], [place] PROGRESS NOTE NAME: YANN BROOKS UNIT #: [id number] ROOM: 517 DOCTOR: GERONIMO HONG MD,KATIE BIRTHDATE: [birth year] DOS: 02/05/2019 PULMONARY PROGRESS NOTE SUBJECTIVE: The patient remains in the hospital, lying in the bed comfortably. Denies symptoms of acute shortness of breath, getting oxygen supplementation with nasal cannula and using the BiPAP at nighttime. Denies symptoms of fever or chills. PHYSICAL EXAMINATION: VITAL SIGNS: For the patient, which are recorded normal temperature, respiratory rate 20, heart rate 81, blood pressure 110/73. Intake and output were not accurately recorded. HEENT: The head was atraumatic. Eyes, nonicterus. NECK: Supple. CARDIOVASCULAR: S1, S2 is audible. LUNGS: The patient was noted without any wheezing or crackles at the present time. ABDOMEN: Soft, nontender. IMPRESSION: Acute influenza A infection, congestive heart failure, peripheral edema noted partially decreased. Overall improvement in the respiratory status was noted. Anticoagulation, the patient with INR still noted subtherapeutic PT/INR 1.7. PLAN OF MANAGEMENT: Current plan of management at this time. Adjustment of Coumadin for the patient to maintain therapeutic INR. Continuation of bronchodilator treatment and plan of management. Discharge planning could be started. Possible discharge to the [facility]dc facility could be considered morning depends on further improvement in the respiratory status, the patient's resolution of acute symptoms. KATIE MELTON MD CM:PNTRANS [id number] KATIE HONG MD 02/05/19 1615 interface
--- NOTE | ~2019-02-01 | PR ---
[place], [place] PROGRESS NOTE NAME: YANN BROKOS UNIT #: [id number] ROOM: 517 DOCTOR: GERONIMO HONG MD,KATIE BIRTHDATE: [birth year] DOS: 02/06/2019 PULMONARY PROGRESS NOTE SUBJECTIVE: She has been noted comfortable at this time, using oxygen supplementation nasal cannula noted stable this morning. Denies symptoms of chest pain, coughing, or sputum expectoration. OBJECTIVE: VITAL SIGNS: Normal temperature, respiratory rate 18, heart rate 83, blood pressure 124/84. Pulse oxygen saturation 4 liters 96% saturation. HEENT: Examination shows head was atraumatic, chronic obesity. CARDIOVASCULAR: S1, S2 audible. LUNGS: Clear. ABDOMEN: Soft, nontender. EXTREMITIES: Still shows significant edema. LABORATORY DATA: INR in the lab today was noted 2.0. IMPRESSION: 1. Resolving acute congestive heart failure at this time with acute influenza infection as well. 2. Chronic bedbound status as well. PLAN OF MANAGEMENT: No changes in the plan for the patient from this standpoint. [facility], possibly tomorrow. The patient would be advised about use of the BiPAP and oxygen supplementation in the nursing facility. KATIE MELTON MD CM:PNTRANS [id number] KATIE HONG MD 02/06/19 1719 interface
--- NOTE | ~2019-02-01 | EKG ---
[place], [place] ELECTROCARDIOGRAM REPORT NAME: YANN BROOKS UNIT #: [id number] ROOM: 517 DOCTOR: SELINA DRAFT REPORT BIRTHDATE: [birth year] [facility] Test Date: 2019-02-01 Test Time: 21:08:58 Pat Name: YANN BROOKS Department: Room: [facility] Gender: F District Resource Officer: Radha Salas : 1945 Requested By: CANDIDO GALEANO Order Number: [id number] Reading MD: Krista Daniel Measurements Intervals [place] Rate: 80 P: [place]: QRS: -75 QRSD: 92 T: 220 QT: 356 QTc: 411 Interpretive Statements Atrial fibrillation Left anterior fascicular block Abnormal R-wave progression, late transition Anterolateral and inferior ST/T changes No previous ECG available for comparison Electronically Signed On 02-03-2019 11:02:48 PDT by Krista Daniel CM:EKGRPT:ELECTROCARDIOGRAM REPORT [id number] CANDIDO ALVA DRAFT REPORT CANDIDO GALEANO DO
--- NOTE | ~2019-02-01 | PR ---
[place], [place] PROGRESS NOTE NAME: YANN BROOKS UNIT #: [id number] ROOM: 517 DOCTOR: GERONIMO HONG MD,KATIE BIRTHDATE: [birth year] DOS: 02/04/2019 PULMONARY PROGRESS NOTE SUBJECTIVE: The patient has been noted comfortable at this time, starting diuretic therapy yesterday. She has not been noted any symptoms of chest pain. Shortness breath was resolving. This morning, the patient was comfortably lying using oxygen supplementation by nasal cannula. OBJECTIVE: VITAL SIGNS: Normal temperature, respiratory rate of 18, heart rate of 45, and blood pressure of 94/62. Pulse oxygen saturation recorded on 4 liters nasal cannula is 92% saturation. HEENT: Examination shows head was atraumatic. Eyes nonicterus. NECK: Supple. CARDIOVASCULAR SYSTEM: S1, S2 audible. LUNGS: Anterolateral auscultation without any wheezing or crackles. ABDOMEN: Soft, nontender. EXTREMITIES: Chronic severe edema with reduction of the edema noted from yesterday. IMPRESSION: Peripheral edema, congestive heart failure with symptoms of shortness of breath and others, all resolving gradually. PLAN OF TREATMENT: Continue current plan of management at this time. Discharge planning could be started for this patient, [facility] in the next 24-48 hours depending on further improvement in respiratory status and stabilization. KATIE MELTON MD CM:PNTRANS [phone] KATIE HONG MD 02/05/19 0247 interface
[2019-02-01 17:32] VITALS: BP 116/76
[~2019-02-01 17:32] MED LIST changes: +ATIVAN0.5 MG PO; +BREO ELLIPTA 11 EACH INH; +Coumadin2.5 MG PO; +GLUCOPHAGE1000 MG PO; +IMODIUM A-D2 M2 PO; +METFORMIN HYDR500 MG PO; +TWOCAL HN 237237 ML PO; +ZANTAC 300300 MG PO; +Zofran4 MG SL
[2019-02-01 18:12] LABS: BASO % 0.5 % (0.0-1.0); EOS % 0.5 % (1.0-4.0); HEMATOCRIT 49.3 % (37.0-47.0); HEMOGLOBIN 15.4 g/dl (12.0-16.0); LYMPH % 17.4 % (27.0-41.0); MEAN CELL VOLUME 95.9 fl (81.0-99.0); MEAN CORPUSCULAR HGB CONC 31.2 g/dl (33.0-37.0); MONO # 0.4 10*3/uL (0.1-1.0); MONO % 7.3 % (3.0-9.0); NEUT # 4.1 10*3/uL (2.3-7.9); NEUT % 73.9 % (47.0-73.0); PLATELET COUNT AUTOMATED 181 10*3/uL (130-400); RED BLOOD COUNT 5.14 10*6/uL (4.10-5.10); RED CELL DISTRI WIDTH 18.2 % (0-14.5); WHITE BLOOD COUNT 5.6 10*3/uL (4.8-10.8)
[2019-02-01 18:24] LABS: ACT PARTIAL THROMBO TIME 23.3 SECONDS (20.8-31.5); INTERNATIONAL NORM RATIO 1.2 (2.0-3.5)
[2019-02-01 18:36] LABS: ALBUMIN 2.7 gm/dl (3.1-4.5); ALKALINE PHOSPHATASE 223 U/L (45-117); BUN 13 mg/dl (7-24); CHLORIDE 101 mmol/L (98-107); CREATININE 0.84 mg/dL (0.55-1.02); POTASSIUM 3.9 mmol/L (3.5-5.1); SGOT/AST 44 IU/L (3-35); SGPT/ALT 50 U/L (12-78); SODIUM 137 mmol/L (136-145); TROPONIN I 0.017 ng/ml (<0.045)
[2019-02-01 18:49] LABS: DIGOXIN 1.4 ng/ml (0.8-2.0)
[2019-02-01 20:02] VITALS: BP 124/59
[2019-02-01 20:50] VITALS: BP 107/59
--- NOTE | 2019-02-01 20:50 | NUR ---
A 73 YEAR OLD FEMALE admitted to [facility]U, under the services of CASE Guzman DO with a diagnosis of RESPIRATORY FAILURE,HYPOXIA,FLU A. Chief complaint is PULSE OX 66% ON RA AT [place]. Patient arrived via stretcher from ER. Monitor applied. Initial assessment completed. Vital signs taken and recorded. CASE GUZMAN DO notified of admission to the unit. Orders received. See assessment for past medical history, medications and allergies. Patient and/or family oriented to unit. [facility] visitation policy reviewed. Clothing/patient valuable form completed. DEO ROMERO
[2019-02-01] MEDS ORDERED: DULCOLAX10 M1 R (22:53)
[2019-02-01] MEDS ORDERED: CLARITIN10 MG PO (22:54)
[2019-02-01] MEDS ORDERED: LANTUS SOL100 UNIT/1 SQ (22:55)
[2019-02-01] MEDS ORDERED: MELATONIN3 MG PO (22:56)
[2019-02-01] MEDS ORDERED: MILK OF MA400 MG/5 M PO (22:57)
[2019-02-01] MEDS ORDERED: ROBITUSSIN COU237 M3 PO (22:58)
[2019-02-01] MEDS ORDERED: PROMETHAZINE12.5 M3 PO (22:59)
--- NOTE | 2019-02-01 23:00 | NUR ---
MED REC UPDATED WITH LIST FROM ASHLEY OHARA,
--- NOTE | 2019-02-01 23:56 | NUR ---
ATTEMPTED TO TITRATE PT DOWN TO 4L NC. PULSE OX 88%. PLACED ON 50% VENTURI MASK. PULSE OX 92%. WILL CONT TO MONITOR.
[2019-02-02] VITALS: BP 96/52
--- NOTE | 2019-02-02 00:31 | NUR ---
DESAT TO 86% NOTED ON 50% VENTURI MASK. PLACED BACK ON 100% NRB MASK. RESTING IN BED WITH EYES CLOSED. APPEARS TO BE SLEEPING.
--- NOTE | 2019-02-02 02:05 | NUR ---
PULSE OX 99%. REMAINS SLEEPING WITHOUT DISTRESS.
--- NOTE | 2019-02-02 03:36 | NUR ---
0200 DR. RIVERA HERE. AWARE THAT WE TRIED TO TITRATED PT DOWN TO A NC AND WERE WERE NOT SUCCESSFUL. 0330 RESPIRATORY THERAPY HERE AND MADE AWARE THAT PT IS STILL ON A NRB MASK. WILL TRY A HIGH FLOW CANNULA.
--- NOTE | 2019-02-02 03:50 | NUR ---
PLACED ON HIGH FLOW NC AT 8L. PULSE OX 100%. WILL CONT TO MONITOR.
[2019-02-02 04:00] VITALS: BP 96/44
--- NOTE | 2019-02-02 04:18 | NUR ---
RESTING IN BED WITH EYES CLOSED. REMAINS SLEEPING WITHOUT DISTRESS
--- NOTE | 2019-02-02 06:14 | NUR ---
0600 INCONTINENT OF LARGE AMOUNT URINE. JUNG CARE DONE AND ADULT DIAPER CHANGED. AFEBRILE. IV FLUIDS CONT. PULSE OX 92% ON HIGH FLOW 02. CONDITION GUARDED.
[2019-02-02 07:10] LABS: BASO % 0.4 % (0.0-1.0); EOS % 0.4 % (1.0-4.0); LYMPH # 0.6 10*3/uL (1.3-4.4); LYMPH % 24.7 % (27.0-41.0); MEAN CELL VOLUME 94.7 fl (81.0-99.0); MEAN CORPUSCULAR HGB 29.8 pg (27.0-31.0); MEAN CORPUSCULAR HGB CONC 31.5 g/dl (33.0-37.0); MONO # 0.3 10*3/uL (0.1-1.0); NEUT # 1.5 10*3/uL (2.3-7.9); NEUT % 61.3 % (47.0-73.0); PLATELET COUNT AUTOMATED 165 10*3/uL (130-400); RED BLOOD COUNT 4.36 10*6/uL (4.10-5.10); RED CELL DISTRI WIDTH 17.7 % (0-14.5); WHITE BLOOD COUNT 2.5 10*3/uL (4.8-10.8)
[2019-02-02 07:16] LABS: HEMATOCRIT 41.3 % (37.0-47.0)
[2019-02-02 07:40] LABS: BUN 12 mg/dl (7-24); CHLORIDE 107 mmol/L (98-107); CHOLESTEROL 94 mg/dL (<200); CREATININE 0.71 mg/dL (0.55-1.02); POTASSIUM 3.6 mmol/L (3.5-5.1); SODIUM 141 mmol/L (136-145); TRIGLYCERIDES 119 mg/dl (<150); VLDL CHOLESTEROL 24 mg/dL (6-40)
[2019-02-02 07:49] LABS: HDL CHOLESTEROL 23 mg/dl (40-60); LDL CHOLESTEROL 47 mg/dL (9-159)
[2019-02-02 08:00] VITALS: BP 121/50
[2019-02-02 08:06] LABS: VITAMIN D, 25-HYDROXY 22.5 ng/mL (30-100)
--- NOTE | 2019-02-02 08:47 | NUR ---
Patient comes from [facility]). She is a lobsterman resident and can return when medically stable for discharge.
--- NOTE | 2019-02-02 09:15 | NUR ---
DR. MELTON NOTIFIED OF CONSULT
[2019-02-02 09:58] LABS: BILIRUBIN NEGATIVE (NEGATIVE); BLOOD TRACE-LYSED (NEGATIVE); CLARITY CLOUDY (CLEAR); COLOR YELLOW (YELLOW); GLUCOSE NEGATIVE (NEGATIVE); KETONE NEGATIVE (NEGATIVE); LEUKO ESTERASE 2+ (NEGATIVE); NITRITE POSITIVE (NEGATIVE)
[2019-02-02 10:15] LABS: WBC TNTC wbc/hpf (0-5)
--- NOTE | 2019-02-02 11:00 | NUR ---
Shipping Coordinator in to see patient. She is a LTC resident at [facility]. When medically stable she will be discharged to [facility]. production planner following.
[2019-02-02 12:00] VITALS: BP 126/56
--- NOTE | 2019-02-02 12:55 | NUR ---
ANXIOUS, ASKING FOR . CALLED AND WILL BE IN LATER TODAY. VITALS STABLE. PULSE OX 93% ON 4L NASAL CANNULA.
--- NOTE | 2019-02-02 13:20 | NUR ---
REPORT CALLED TO ANABELA WATKINS RN. HERE AND AWARE OF TRANSFER.
[2019-02-02 16:00] VITALS: BP 120/54
[2019-02-02 16:20] LABS: ABG BASE EXCESS 2.3 mmol/L (-2.0-2.0); ABG HCO3 25.9 mmol/l (22-26); ABG O2 SATURATION 93.6 % (95-97); ARTERIAL BLOOD GAS PCO2 37.2 mmHg (35-45); ARTERIAL BLOOD GAS PH 7.454 (7.35-7.45); ARTERIAL BLOOD GAS PO2 60.1 mmHg (80-90)
[2019-02-02 20:00] VITALS: BP 133/93
[2019-02-03] VITALS: BP 109/57
[2019-02-03 06:38] LABS: BASO % 0.7 % (0.0-1.0); EOS % 1.1 % (1.0-4.0); HEMATOCRIT 40.3 % (37.0-47.0); LYMPH # 0.8 10*3/uL (1.3-4.4); LYMPH % 29.3 % (27.0-41.0); MEAN CELL VOLUME 94.2 fl (81.0-99.0); MEAN CORPUSCULAR HGB 30.4 pg (27.0-31.0); MEAN CORPUSCULAR HGB CONC 32.3 g/dl (33.0-37.0); MEAN PLATELET VOLUME 11.1 fl (9.6-12.3); MONO # 0.3 10*3/uL (0.1-1.0); MONO % 10.4 % (3.0-9.0); NEUT # 1.6 10*3/uL (2.3-7.9); NEUT % 58.1 % (47.0-73.0); PLATELET COUNT AUTOMATED 160 10*3/uL (130-400); RED BLOOD COUNT 4.28 10*6/uL (4.10-5.10); RED CELL DISTRI WIDTH 17.6 % (0-14.5); WHITE BLOOD COUNT 2.7 10*3/uL (4.8-10.8)
[2019-02-03 07:03] LABS: BUN 12 mg/dl (7-24); CHLORIDE 109 mmol/L (98-107); CREATININE 0.55 mg/dL (0.55-1.02); INTERNATIONAL NORM RATIO 1.3 (2.0-3.5); POTASSIUM 3.1 mmol/L (3.5-5.1); SODIUM 142 mmol/L (136-145)
[2019-02-03 08:00] VITALS: BP 122/60
--- NOTE | 2019-02-03 09:00 | NUR ---
Family Medicine Chair in to see patient. She is a LTC resident at [facility]. When medically stable she will be discharged to [facility]. planner/scheduler following.
[2019-02-03 12:00] VITALS: BP 99/74
--- NOTE | 2019-02-03 12:11 | NUR ---
PT. WILL NOT USE BIPAP.
--- NOTE | 2019-02-03 12:23 | NUR ---
Faxed clinical updates to [facility] for review, notified facility patient is positive flu A. Patient is [facility] care an ok to return when medically stable.
[2019-02-03 16:00] VITALS: BP 95/55
[2019-02-03 20:00] VITALS: BP 96/53
--- NOTE | 2019-02-03 23:56 | NUR ---
PATIENT REFUSED BIPAP. PATIEN ON 4 L/M SPO2 93%
[2019-02-04] VITALS: BP 113/54
[2019-02-04 06:21] LABS: BASO % 0.3 % (0.0-1.0); EOS # 0.1 10*3/uL (0.0-0.4); EOS % 2.2 % (1.0-4.0); HEMATOCRIT 40.9 % (37.0-47.0); HEMOGLOBIN 12.7 g/dl (12.0-16.0); LYMPH # 0.9 10*3/uL (1.3-4.4); MEAN CELL VOLUME 95.3 fl (81.0-99.0); MEAN CORPUSCULAR HGB 29.6 pg (27.0-31.0); MEAN CORPUSCULAR HGB CONC 31.1 g/dl (33.0-37.0); MEAN PLATELET VOLUME 11.1 fl (9.6-12.3); MONO # 0.3 10*3/uL (0.1-1.0); MONO % 8.4 % (3.0-9.0); NEUT # 2.3 10*3/uL (2.3-7.9); NEUT % 64.5 % (47.0-73.0); PLATELET COUNT AUTOMATED 196 10*3/uL (130-400); RED BLOOD COUNT 4.29 10*6/uL (4.10-5.10); RED CELL DISTRI WIDTH 18.1 % (0-14.5); WHITE BLOOD COUNT 3.6 10*3/uL (4.8-10.8)
[2019-02-04 06:35] LABS: ALBUMIN 2.2 gm/dl (3.1-4.5); ALKALINE PHOSPHATASE 153 U/L (45-117); BUN 15 mg/dl (7-24); CHLORIDE 113 mmol/L (98-107); CREATININE 0.64 mg/dL (0.55-1.02); POTASSIUM 3.5 mmol/L (3.5-5.1); SGOT/AST 34 IU/L (3-35); SODIUM 146 mmol/L (136-145); TOTAL PROTEIN 6.6 gm/dL (6.4-8.2)
[2019-02-04 06:38] LABS: SGPT/ALT 37 U/L (12-78)
[2019-02-04 06:41] LABS: INTERNATIONAL NORM RATIO 1.4 (2.0-3.5)
[2019-02-04 08:00] VITALS: BP 107/54
--- NOTE | 2019-02-04 08:48 | NUR ---
Notified Dr. Lehman of patients pulse rate. Physician to follow up at bedside. See vitals.
--- NOTE | 2019-02-04 08:58 | NUR ---
Dr. Lehman assessed patient. Pulse 58, see vitals.
[2019-02-04 12:00] VITALS: BP 115/55
--- NOTE | 2019-02-04 13:54 | NUR ---
Tried to contact Dr. Lehman regarding patients heart rate, went to voice mail. Will follow up. Nursing measure placed patient back on telemetry to better monitor HRR. Patients heart rate is 45-50 BPM. Patient c/o dizziness.
--- NOTE | 2019-02-04 14:15 | NUR ---
Spoke with Dr. Lehman regarding patients heart rate. Per physician obtain a recent set of vitals. See flowsheet.
[2019-02-04 14:25] VITALS: BP 94/62
--- NOTE | 2019-02-04 14:30 | NUR ---
Called Dr. Lehman with vitals. Physician to follow up at [facility].
[2019-02-04 16:00] VITALS: BP 120/58
[2019-02-04 20:00] VITALS: BP 137/58
--- NOTE | 2019-02-04 23:01 | NUR ---
PT ADAMANTELY REFUSING TO WEAR BIPAP. PT ENCOURAGED AND EDUCATED ON BENEFITS OF BIPAP COMPLIANCE. PT CONTINUES TO REFUSE. WILL CONTINUE TO REASSESS NEEDED. PT IS IN NO DISTRESS AND HAS NO COMPLAINTS OF SOB AT THIS TIME.
[2019-02-05] VITALS: BP 110/73
[2019-02-05 06:48] LABS: BASO % 0.5 % (0.0-1.0); EOS # 0.1 10*3/uL (0.0-0.4); EOS % 3.2 % (1.0-4.0); HEMATOCRIT 39.9 % (37.0-47.0); HEMOGLOBIN 12.5 g/dl (12.0-16.0); LYMPH % 26.8 % (27.0-41.0); MEAN CORPUSCULAR HGB 29.8 pg (27.0-31.0); MEAN CORPUSCULAR HGB CONC 31.3 g/dl (33.0-37.0); MEAN PLATELET VOLUME 11.4 fl (9.6-12.3); MONO # 0.3 10*3/uL (0.1-1.0); NEUT # 2.3 10*3/uL (2.3-7.9); NEUT % 61.2 % (47.0-73.0); PLATELET COUNT AUTOMATED 185 10*3/uL (130-400); RED CELL DISTRI WIDTH 17.9 % (0-14.5); WHITE BLOOD COUNT 3.7 10*3/uL (4.8-10.8)
[2019-02-05 07:00] LABS: ALBUMIN 2.2 gm/dl (3.1-4.5); BUN 15 mg/dl (7-24); CHLORIDE 113 mmol/L (98-107); POTASSIUM 3.3 mmol/L (3.5-5.1); SODIUM 145 mmol/L (136-145)
[2019-02-05 07:04] LABS: ALKALINE PHOSPHATASE 165 U/L (45-117); CREATININE 0.51 mg/dL (0.55-1.02); SGOT/AST 39 IU/L (3-35); SGPT/ALT 39 U/L (12-78); TOTAL PROTEIN 6.5 gm/dL (6.4-8.2)
[2019-02-05 07:11] LABS: INTERNATIONAL NORM RATIO 1.7 (2.0-3.5)
[2019-02-05 12:00] VITALS: BP 135/78
[2019-02-05 16:00] VITALS: BP 130/70
[2019-02-05 20:00] VITALS: BP 112/59
--- NOTE | 2019-02-05 20:37 | NUR ---
PT MEDICATED WITH PRN NORCO FOR C/O 08/03 PAIN "ALL OVER".
[2019-02-06] VITALS: BP 133/79
--- NOTE | 2019-02-06 00:29 | NUR ---
PT MEDICATED WITH PRN RESTORIL PER REQUEST. WILL MONITOR FOR EFFECTIVENESSS.
--- NOTE | 2019-02-06 02:57 | NUR ---
24 HR chart check completed.
[2019-02-06 07:29] LABS: ALBUMIN 2.2 gm/dl (3.1-4.5); ALKALINE PHOSPHATASE 175 U/L (45-117); BUN 14 mg/dl (7-24); CHLORIDE 114 mmol/L (98-107); CREATININE 0.47 mg/dL (0.55-1.02); SGOT/AST 54 IU/L (3-35); SGPT/ALT 50 U/L (12-78); SODIUM 144 mmol/L (136-145); TOTAL PROTEIN 6.4 gm/dL (6.4-8.2)
[2019-02-06 08:00] VITALS: BP 122/53
--- NOTE | 2019-02-06 09:00 | NUR ---
Deck Officer in to see patient. She is a LTC resident at [facility]. When medically stable she will be discharged to [facility]. direct care worker following.
[2019-02-06 09:45] VITALS: BP 124/68
[2019-02-06] MEDS ORDERED: OXYCODONE HCL5 M1 PO (11:53)
[2019-02-06] MEDS ORDERED: Vitamin D PO (11:53)
[2019-02-06] MEDS ORDERED: COUMADIN4 M2 PO (11:55)
[2019-02-06 12:00] VITALS: BP 124/84
--- NOTE | 2019-02-06 13:32 | NUR ---
Nurse to nurse report given to Jen at [facility].
--- NOTE | 2019-02-06 13:57 | NUR ---
Patient was tearful, looking for her family members, and c/o anxiety. Contacted Shae Alexandra CNP regarding patients increased level of anxiety due to returning to [facility]. See new orders.
--- NOTE | 2019-02-06 15:13 | NUR ---
SW received a call from GERMAIN Perez to ask for a return to [facility] for patient as soon as possible. GERMAIN ALEXIS MSW,SETH
--- NOTE | 2019-02-06 15:14 | NUR ---
MATY called credit clerk on floor to ask if it was okay for pt to be picked up [facility]. Nurse stated it was. GERMAIN Padgett INDUSTRIAL TECHNOLOGIST,ATHLETE MANAGER MATY called back to let the credit clerk know that [facility] would be picking pt up [place]. GERMAIN Padgett MSW,ATHLETE MANAGER
--- NOTE | 2019-02-06 15:16 | NUR ---
SW spoke with [place] who stated they would send someone out as soon as possible. Pt name and rm number provided, pt on 4L oxygen and has resp. medical issues. And [facility]. GERMAIN Padgett FINAL CLEANER,ABA THERAPIST
--- NOTE | 2019-02-06 15:18 | NUR ---
SW called pt's to inform him that pt is being transported by [facility] to [facility] as soon as possible. thank MATY for letting him know. GERMAIN Padgett MSW,STAFF THERAPIST
--- NOTE | 2019-02-06 15:20 | NUR ---
MATY notified Fanny/ VIGNESH that pt was being returned by [facility] and they were coming as soon as possible to pick her up. GERMAIN Padgett ADMISSIONS COORDINATOR,SUSTAINABLE LANDSCAPE ARCHITECT
--- NOTE | 2019-02-06 16:04 | NUR ---
Discharge instructions reviewed with patient/family. Patient receptive and verbalizes understanding. Follow-up care arranged. Written instructions given to patient/family. Patient was wheeled from unit by EMS. Patients family took personal belongings home earlier in the day. ELIAS HURST
== END 2019-02-06 15:20 | disposition other institution (70) | DRG 871 ==
LOC: ED 17:32 → EDHOLD 19:12 → ICCU 19:12 → 5E 02-02 13:24
PROVIDERS: Emergency Medicine; Internal Medicine; Internal Medicine Critical Care Medicine; Registered Nurse; Student in an Organized Health Care Education/Training Program; ADMIT Internal Medicine
DX: A41.9 Sepsis, unspecified organism (principal); J10.00 Influenza due to other identified influenza virus with unspecified type of pneumonia; I50.33 Acute on chronic diastolic (congestive) heart failure; J96.21 Acute and chronic respiratory failure with hypoxia; E87.2 Acidosis; D68.61 Antiphospholipid syndrome; I69.351 Hemiplegia and hemiparesis following cerebral infarction affecting right dominant side; R65.20 Severe sepsis without septic shock; R74.0 Nonspecific elevation of levels of transaminase and lactic acid dehydrogenase [LDH]; E11.65 Type 2 diabetes mellitus with hyperglycemia; F32.9 Major depressive disorder, single episode, unspecified; K21.9 Gastro-esophageal reflux disease without esophagitis; I48.2 Chronic atrial fibrillation; F03.90 Unspecified dementia, unspecified severity, without behavioral disturbance, psychotic disturbance, mood disturbance, and anxiety; G47.33 Obstructive sleep apnea (adult) (pediatric); E03.9 Hypothyroidism, unspecified; E66.01 Morbid (severe) obesity due to excess calories; I95.9 Hypotension, unspecified; Z87.440 Personal history of urinary (tract) infections; Z79.4 Long term (current) use of insulin; Z99.81 Dependence on supplemental oxygen; Z74.01 Bed confinement status; Z90.49 Acquired absence of other specified parts of digestive tract; Z98.891 History of uterine scar from previous surgery; Z82.49 Family history of ischemic heart disease and other diseases of the circulatory system; Z91.048 Other nonmedicinal substance allergy status; Z83.3 Family history of diabetes mellitus; Z79.899 Other long term (current) drug therapy; Z79.01 Long term (current) use of anticoagulants; Z68.37 Body mass index [BMI] 37.0-37.9, adult

== ENCOUNTER 2019-11-01 01:09 | Inpatient (IN) | payer MEDICARE, MEDICAID ==
[~2019-11-01] VITALS: Ht 162.5 cm; Wt 97.5 kg
[~2019-11-01 01:09] MED LIST changes: +CLARITIN10 MG PO; +DULCOLAX10 M1 R; +LANTUS SOL100 UNIT/1 SQ; +MELATONIN3 MG PO; +MILK OF MA400 MG/5 M PO; +PROMETHAZINE12.5 M3 PO; +ROBITUSSIN COU237 M3 PO; +Vitamin D PO
[2019-11-01 01:28] VITALS: BP 95/56
[2019-11-01 01:41] LABS: BASO % 0.5 % (0.0-1.0); EOS # 0.2 10*3/uL (0.0-0.4); EOS % 2.5 % (1.0-4.0); HEMATOCRIT 43.5 % (37.0-47.0); LYMPH # 1.2 10*3/uL (1.3-4.4); LYMPH % 15.4 % (27.0-41.0); MEAN CELL VOLUME 98.9 fl (81.0-99.0); MEAN CORPUSCULAR HGB 31.8 pg (27.0-31.0); MEAN CORPUSCULAR HGB CONC 32.2 g/dl (33.0-37.0); MEAN PLATELET VOLUME 10.5 fl (9.6-12.3); MONO # 0.6 10*3/uL (0.1-1.0); NEUT # 5.6 10*3/uL (2.3-7.9); NEUT % 73.1 % (47.0-73.0); PLATELET COUNT AUTOMATED 242 10*3/uL (130-400); RED CELL DISTRI WIDTH 17.2 % (0-14.5); WHITE BLOOD COUNT 7.6 10*3/uL (4.8-10.8)
[2019-11-01 01:56] LABS: ACT PARTIAL THROMBO TIME 29.1 SECONDS (20.0-32.1)
[2019-11-01 01:57] LABS: ALBUMIN 2.8 gm/dl (3.1-4.5); ALKALINE PHOSPHATASE 120 U/L (45-117); BUN 20 mg/dl (7-24); CHLORIDE 111 mmol/L (98-107); CREATININE 0.81 mg/dL (0.55-1.02); POTASSIUM 5.1 mmol/L (3.5-5.1); SGOT/AST 17 IU/L (3-35); SGPT/ALT 28 U/L (12-78); SODIUM 144 mmol/L (136-145); TOTAL PROTEIN 6.2 gm/dL (6.4-8.2)
[2019-11-01 01:58] LABS: TROPONIN I < 0.015 ng/ml (<0.045)
[2019-11-01 04:32] LABS: BASO % 0.3 % (0.0-1.0); EOS # 0.2 10*3/uL (0.0-0.4); EOS % 2.2 % (1.0-4.0); HEMATOCRIT 43.3 % (37.0-47.0); LYMPH # 0.9 10*3/uL (1.3-4.4); LYMPH % 10.3 % (27.0-41.0); MEAN CELL VOLUME 98.2 fl (81.0-99.0); MEAN CORPUSCULAR HGB 31.7 pg (27.0-31.0); MEAN CORPUSCULAR HGB CONC 32.3 g/dl (33.0-37.0); MEAN PLATELET VOLUME 10.5 fl (9.6-12.3); MONO # 0.6 10*3/uL (0.1-1.0); MONO % 6.9 % (3.0-9.0); NEUT # 7.2 10*3/uL (2.3-7.9); NEUT % 79.7 % (47.0-73.0); PLATELET COUNT AUTOMATED 227 10*3/uL (130-400); RED BLOOD COUNT 4.41 10*6/uL (4.10-5.10); RED CELL DISTRI WIDTH 17.2 % (0-14.5)
[2019-11-01 04:42] VITALS: BP 96/58
[2019-11-01 05:02] LABS: BUN 21 mg/dl (7-24); CHLORIDE 112 mmol/L (98-107); CREATININE 0.76 mg/dL (0.55-1.02); PHOSPHOROUS 2.9 mg/dL (2.5-4.9); POTASSIUM 4.8 mmol/L (3.5-5.1); SODIUM 143 mmol/L (136-145)
[2019-11-01 05:08] LABS: THYROID STIM HORMONE (HS) 0.601 uIU/ml (0.358-4.75)
--- NOTE | 2019-11-01 07:45 | NUR ---
FBS=74
[2019-11-01 08:21] LABS: VITAMIN D, 25-HYDROXY 18.4 ng/mL (30-100)
[2019-11-01 08:24] LABS: BILIRUBIN NEGATIVE (NEGATIVE); BLOOD NEGATIVE (NEGATIVE); CLARITY CLEAR (CLEAR); COLOR YELLOW (YELLOW); GLUCOSE NEGATIVE (NEGATIVE); KETONE TRACE (NEGATIVE); LEUKO ESTERASE 1+ (NEGATIVE); NITRITE NEGATIVE (NEGATIVE); UROBILINOGEN 0.2 E.U./dl (0.2-1.0)
--- NOTE | 2019-11-01 08:46 | NUR ---
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 Patient ok to return when medically stable for discharge.
[2019-11-01 09:09] VITALS: BP 117/87
--- NOTE | 2019-11-01 09:30 | NUR ---
A 74, admitted to 4E, under the services of STELLA Charles DO with a diagnosis of CHEST PAIN . Chief complaint is CHEST PAIN . Patient arrived via stretcher from ER. Monitor applied. Initial assessment completed. Vital signs taken and recorded. STELLA CHARLES DO notified of admission to the unit. Orders received. See assessment for past medical history, medications and allergies. Patient and/or family oriented to unit. [facility] visitation policy reviewed. Clothing/patient valuable form completed. SERGIO STAFFORD
[2019-11-01 09:40] LABS: BACTERIA 3+; CALCIUM OXALATE CRYSTALS 2+
[2019-11-01 12:00] VITALS: BP 103/54
[2019-11-01] MEDS ORDERED: ELIQUIS5 M1 PO (13:18)
[2019-11-01] MEDS ORDERED: GLUCOPHAGE500 M1 PO (13:21)
[2019-11-01] MEDS ORDERED: METOPROLOL TART50 M1 PO (13:26)
[2019-11-01] MEDS ORDERED: PEPCID20 MG PO (13:26)
[2019-11-01 16:00] VITALS: BP 124/62
[2019-11-01 20:00] VITALS: BP 112/77
--- NOTE | 2019-11-01 20:00 | NUR ---
SLEEPING. NO DISTRESS NOTED. RESPIRATIONS EASY. LUNGS DIMINISHED. PULSE OX 95% 2L. +3 BLE EDEMA. CALL LIGHT WITHIN REACH. BED ALARM MAINTAINED
--- NOTE | 2019-11-01 20:36 | NUR ---
24 HR chart check completed.
--- NOTE | 2019-11-01 21:17 | NUR ---
MEDICATED WITH TYLENOL AND RESTORIL PER PRN ORDER FOR COMPLAINTS OF GENERALIZED ACHES AND TO ASSIST WITH SLEEP. CALL LIGHT WITHIN REACH. WILL MONITOR
--- NOTE | 2019-11-01 23:00 | NUR ---
MEDS EFFECTIVE. SLEEPING
[2019-11-02] VITALS: BP 104/52
--- NOTE | 2019-11-02 01:43 | NUR ---
24 HR chart check completed.
--- NOTE | 2019-11-02 04:40 | NUR ---
Patient sleeping. Respirations relaxed and easy. Siderails up . [place] on. DAVIDE CALLAHAN
--- NOTE | 2019-11-02 05:38 | NUR ---
CALLED DR REYES TO SEE IF SHE COULD PUT A ORDER IN FOR THE PATIENTS BREASTS, REDDENED AREA. SHE STATES SHE WILL PUT AN ORDER IN
[2019-11-02 07:03] LABS: BUN 24 mg/dl (7-24); CHLORIDE 110 mmol/L (98-107); CREATININE 0.76 mg/dL (0.55-1.02); POTASSIUM 4.5 mmol/L (3.5-5.1); SODIUM 142 mmol/L (136-145)
[2019-11-02 08:00] VITALS: BP 100/60
--- NOTE | 2019-11-02 08:16 | NUR ---
PHYSICAL THERAPY Screen received as well as PT orders will follow thank you Rehana Velasquez PT
--- NOTE | 2019-11-02 08:25 | NUR ---
Nursing screen and Occupational Therapy referral received. Thank you. Gayle Up OTR/L
--- NOTE | 2019-11-02 09:06 | NUR ---
PT SITTING UP IN B ED, EATING BREAKFAST. NO DISTRESS NOTED WILL MONITOR
--- NOTE | 2019-11-02 11:13 | NUR ---
Patient updated clinicals faxed to [facility] for review. Patient is a alf care resident and ok to return when medically stable for discharge.
--- NOTE | 2019-11-02 11:46 | NUR ---
PT IS GROUP HOME CARE AT [facility] AND CAN RETURN WHEN MEDICALLY STABLE. WILL CONTINUE TO FOLLOW.
--- NOTE | 2019-11-02 11:55 | NUR ---
REPORT CALLED TO MARILIN Horner ON 5E PT TRANSFERED TO 5E. AT BEDSIDE
[2019-11-02 12:00] VITALS: BP 112/66
--- NOTE | 2019-11-02 15:44 | NUR ---
Nutritional Support Services Note: Discussing with pt 1800cal diet. Declined diet copy. States she tries to avoid sweets. No other nutrition intervention needed at this time. Pt is eating 100% of all meals. Valentina Retana Rdn Ld
[2019-11-02 16:00] VITALS: BP 95/58
[2019-11-02 20:00] VITALS: BP 95/60
--- NOTE | 2019-11-02 21:00 | NUR ---
Patient resting quietly with no c/o discomfort. Respirations easy and regular. Vital signs stable. No overt distress. MARIO MEJIA
[2019-11-03] VITALS: BP 114/38
[2019-11-03 08:00] VITALS: BP 90/55
--- NOTE | 2019-11-03 08:00 | NUR ---
PT RESTING IN BED, REPOSITIONED IN BED. ARMS ELEVATED UP ON PILLOWS. 2-3+BLE/PEDAL EDEMA, BILATERAL ARMS EDEMATOUS. ALERT TO NAME ONLY. BED ALARM ON. CALL LIGHT IN REACH. SEE SHIFT ASSESSMENT.
--- NOTE | 2019-11-03 11:23 | NUR ---
CALLED DR. MCCRAY MADE AWARE OF BP 90/55, HR-89. HOLD LOPRESSOR.
[2019-11-03 12:00] VITALS: BP 113/74
--- NOTE | 2019-11-03 13:00 | NUR ---
PT BSG-190, SEE EMAR. OXYGEN IN USE. NO C/O AT THIS TIME. CALL LIGHT IN REACH. VISITOR AT HER SIDE.
--- NOTE | 2019-11-03 14:00 | NUR ---
TOLERATED ROUTINE MED WITH NO PROBLEM. NO C/O AT THIS TIME. OXYGEN IN USE. CALL LIGHT IN REACH.
[2019-11-03 16:00] VITALS: BP 123/64
--- NOTE | 2019-11-03 16:00 | NUR ---
PT RESTING IN BED, REPOSITIONED IN BED FOR COMFORT. NO C/O AT THIS TIME. CALL LIGHT IN REACH. SEE SHIFT ASSESSMENT.
--- NOTE | 2019-11-03 16:30 | NUR ---
BSG-181, SEE EMAR. VISITOR AT HER SIDE. NO C/O AT THIS TIME. CALL LIGHT IN REACH.
[2019-11-03 20:00] VITALS: BP 129/69
[2019-11-04] VITALS: BP 105/57; BP 134/71
[2019-11-04 08:00] VITALS: BP 128/67
[2019-11-04 08:21] LABS: BUN 26 mg/dl (7-24); CHLORIDE 112 mmol/L (98-107); CREATININE 0.67 mg/dL (0.55-1.02); POTASSIUM 4.3 mmol/L (3.5-5.1); SODIUM 145 mmol/L (136-145)
--- NOTE | 2019-11-04 09:42 | NUR ---
[facility] CALLED AT THIS TIME REGARDING DISCHARGE. OKAY FOR PATIENT TO RETURN TODAY.
[2019-11-04] MEDS ORDERED: NEURONTIN300 MG PO (09:55)
[2019-11-04] MEDS ORDERED: NITROFURANTOIN100 M9 PO (09:55)
--- NOTE | 2019-11-04 11:28 | NUR ---
REPORT GIVEN TO NURSE AT [facility].
--- NOTE | 2019-11-04 11:42 | NUR ---
DISCHARGE PACKET COMPLETE AND WAITING FOR TRANSPORT TO [facility].
--- NOTE | 2019-11-04 12:10 | NUR ---
AMBULANCE HERE TO TRANSPORT PATIENT TO [facility] PER ORDER.
== END 2019-11-04 12:10 | disposition other institution (70) | DRG 871 ==
LOC: ED 01:09 → 4E 02:23 → 5E 02:23 → EDHOLD 02:23 → 4E 08:13 → 5E 11-02 12:05
PROVIDERS: Emergency Medicine; Student in an Organized Health Care Education/Training Program; ADMIT Family Medicine
DX: A41.9 Sepsis, unspecified organism (principal); E43 Unspecified severe protein-calorie malnutrition; I50.32 Chronic diastolic (congestive) heart failure; N39.0 Urinary tract infection, site not specified; D68.61 Antiphospholipid syndrome; F33.1 Major depressive disorder, recurrent, moderate; I48.20 Chronic atrial fibrillation, unspecified; J96.11 Chronic respiratory failure with hypoxia; D68.9 Coagulation defect, unspecified; M79.18 Myalgia, other site; E87.8 Other disorders of electrolyte and fluid balance, not elsewhere classified; E11.65 Type 2 diabetes mellitus with hyperglycemia; K21.9 Gastro-esophageal reflux disease without esophagitis; E66.01 Morbid (severe) obesity due to excess calories; G89.29 Other chronic pain; E55.9 Vitamin D deficiency, unspecified; B95.2 Enterococcus as the cause of diseases classified elsewhere; E53.8 Deficiency of other specified B group vitamins; Z90.49 Acquired absence of other specified parts of digestive tract; Z68.36 Body mass index [BMI] 36.0-36.9, adult; Z99.81 Dependence on supplemental oxygen; Z79.01 Long term (current) use of anticoagulants; Z86.73 Personal history of transient ischemic attack (TIA), and cerebral infarction without residual deficits; Z82.49 Family history of ischemic heart disease and other diseases of the circulatory system; Z91.048 Other nonmedicinal substance allergy status; Z79.899 Other long term (current) drug therapy; Z79.4 Long term (current) use of insulin

== ENCOUNTER 2020-03-15 16:27 | Inpatient (IN) | payer MEDICARE, MEDICAID ==
[~2020-03-15] VITALS: Ht 165.1 cm; Wt 103.9 kg
[2020-03-15 16:27] VITALS: BP 123/70
[~2020-03-15 16:27] MED LIST changes: +GLUCOPHAGE500 M1 PO; +METOPROLOL TART50 M1 PO; +NITROFURANTOIN100 M9 PO; +PEPCID20 MG PO
[2020-03-15 16:45] VITALS: BP 127/74
[2020-03-15 17:24] LABS: BASO # 0.1 10*3/uL (0.0-0.1); BASO % 0.8 % (0.0-1.0); EOS # 0.2 10*3/uL (0.0-0.4); EOS % 2.2 % (1.0-4.0); LYMPH # 1.2 10*3/uL (1.3-4.4); LYMPH % 16.9 % (27.0-41.0); MEAN CELL VOLUME 97.2 fl (81.0-99.0); MEAN CORPUSCULAR HGB 29.4 pg (27.0-31.0); MEAN CORPUSCULAR HGB CONC 30.2 g/dl (33.0-37.0); MEAN PLATELET VOLUME 10.9 fl (9.6-12.3); MONO # 0.6 10*3/uL (0.1-1.0); MONO % 8.7 % (3.0-9.0); NEUT # 5.2 10*3/uL (2.3-7.9); PLATELET COUNT AUTOMATED 279 10*3/uL (130-400); RED BLOOD COUNT 4.32 10*6/uL (4.10-5.10); RED CELL DISTRI WIDTH 18.6 % (0-14.5); WHITE BLOOD COUNT 7.3 10*3/uL (4.8-10.8)
[2020-03-15 17:26] LABS: ABG BASE EXCESS 0.1 mmol/L (-2.0-2.0); ARTERIAL BLOOD GAS PH 7.391 (7.35-7.45)
[2020-03-15 17:35] LABS: ACT PARTIAL THROMBO TIME 32.9 SECONDS (20.0-32.1); INTERNATIONAL NORM RATIO 1.2 (2.0-3.5)
[2020-03-15 17:48] LABS: ALBUMIN 2.6 gm/dl (3.1-4.5); ALKALINE PHOSPHATASE 133 U/L (45-117); BUN 27 mg/dl (7-24); CHLORIDE 111 mmol/L (98-107); CREATININE 0.96 mg/dL (0.55-1.02); POTASSIUM 4.9 mmol/L (3.5-5.1); SGOT/AST 20 IU/L (3-35); SGPT/ALT 16 U/L (12-78); SODIUM 141 mmol/L (136-145); TOTAL PROTEIN 6.5 gm/dL (6.4-8.2)
[2020-03-15 17:49] LABS: TROPONIN I < 0.015 ng/ml (<0.045)
[2020-03-15 18:15] VITALS: BP 142/73
--- NOTE | 2020-03-15 18:15 | NUR ---
in with pt at this time.Orders to send urine and iv placed at this time.
--- NOTE | 2020-03-15 18:29 | NUR ---
Pt has mutiple scabs and purple hues noted to skin but not open.Right 1st toenail is black but not open.Excoration noted to right groin and right lower groin and photos taken.
[2020-03-15 19:11] LABS: BILIRUBIN NEGATIVE (NEGATIVE); BLOOD 2+ (NEGATIVE); CLARITY CLOUDY (CLEAR); COLOR YELLOW (YELLOW); GLUCOSE NEGATIVE (NEGATIVE); KETONE NEGATIVE (NEGATIVE); LEUKO ESTERASE 3+ (NEGATIVE); NITRITE POSITIVE (NEGATIVE); UROBILINOGEN 0.2 E.U./dl (0.2-1.0)
[2020-03-15 19:12] LABS: BACTERIA 4+; MUCOUS 1+; WBC TNTC wbc/hpf (0-5)
--- NOTE | 2020-03-15 20:15 | NUR ---
Pt transfered to floor with supervisor wood room at this time.
[2020-03-15 20:25] VITALS: BP 101/72
--- NOTE | 2020-03-15 20:25 | NUR ---
A 74, admitted to , under the services of ANTHONY Wasserman DO with a diagnosis of CHF. Chief complaint is FROM [place] WITH C/O LOW PULSE OX AND4 + EDEMA TO BELLA LOWER EXTREMITIES. Patient arrived via stretcher from ER. Monitor applied. Initial assessment completed. Vital signs taken and recorded. ANTHONY WASSERMAN DO notified of admission to the unit. Orders received. See assessment for past medical history, medications and allergies. Patient and/or family oriented to unit. [facility] visitation policy reviewed. Clothing/patient valuable form completed. SASHA VALENCIA
[2020-03-15] MEDS ORDERED: NEURONTIN100 MG PO (23:30)
[2020-03-15] MEDS ORDERED: LEXAPRO10 MG PO (23:31)
[2020-03-15] MEDS ORDERED: ALBUTEROL0.63 MG/3 INH (23:34)
[2020-03-16] VITALS: BP 103/74
--- NOTE | 2020-03-16 02:19 | NUR ---
MESSAGE LEFT ON ANSWERING SERVICE FOR CARDIAC CONSULT WITH DR. CARVER.
--- NOTE | 2020-03-16 05:00 | NUR ---
LOPRESSOR 5 MG GIVEN SLOWY PER PRN ORDER FOR ELEVTED HR OF 135.
--- NOTE | 2020-03-16 05:05 | NUR ---
HEART RATE NOW IN HIGH 90'S AND LOW 100'S
--- NOTE | 2020-03-16 06:00 | NUR ---
PATIENT CONFUSED AND YELLING OUT.PATIETN REPOSITION AND SMALL SIPS OF WATER GIVEN.
[2020-03-16 06:10] LABS: BASO # 0.1 10*3/uL (0.0-0.1); BASO % 0.7 % (0.0-1.0); EOS # 0.1 10*3/uL (0.0-0.4); EOS % 1.2 % (1.0-4.0); HEMATOCRIT 42.8 % (37.0-47.0); LYMPH # 1.1 10*3/uL (1.3-4.4); LYMPH % 15.3 % (27.0-41.0); MEAN CELL VOLUME 95.7 fl (81.0-99.0); MEAN CORPUSCULAR HGB 29.5 pg (27.0-31.0); MEAN CORPUSCULAR HGB CONC 30.8 g/dl (33.0-37.0); MEAN PLATELET VOLUME 11.5 fl (9.6-12.3); MONO # 0.7 10*3/uL (0.1-1.0); MONO % 9.4 % (3.0-9.0); NEUT % 72.7 % (47.0-73.0); PLATELET COUNT AUTOMATED 304 10*3/uL (130-400); RED BLOOD COUNT 4.47 10*6/uL (4.10-5.10); RED CELL DISTRI WIDTH 18.6 % (0-14.5); WHITE BLOOD COUNT 6.9 10*3/uL (4.8-10.8)
--- NOTE | 2020-03-16 07:00 | NUR ---
LEGS LARGE. MARIBEL HOSE ARE NOT BIG ENOUGH AND THERE WERE NO TUBIGRIPS AVAILABLE.
[2020-03-16 07:02] LABS: ALBUMIN 2.6 gm/dl (3.1-4.5); ALKALINE PHOSPHATASE 133 U/L (45-117); BUN 24 mg/dl (7-24); CHLORIDE 110 mmol/L (98-107); CHOLESTEROL 107 mg/dL (<200); CREATININE 0.74 mg/dL (0.55-1.02); HDL CHOLESTEROL 47 mg/dl (40-60); LDL CHOLESTEROL 34 mg/dL (9-159); POTASSIUM 4.9 mmol/L (3.5-5.1); SGOT/AST 35 IU/L (3-35); SGPT/ALT 21 U/L (12-78); SODIUM 142 mmol/L (136-145); TOTAL PROTEIN 6.9 gm/dL (6.4-8.2); TRIGLYCERIDES 131 mg/dl (<150); VLDL CHOLESTEROL 26 mg/dL (6-40)
--- NOTE | 2020-03-16 07:50 | NUR ---
Medicated with norco per prn order for complaints of generalized body pain. States pain is all over.
[2020-03-16 08:00] VITALS: BP 100/64
--- NOTE | 2020-03-16 08:30 | NUR ---
States that pain medication was effective.
--- NOTE | 2020-03-16 09:16 | NUR ---
patient is a snf resident of [facility] and will return when medically stable
[2020-03-16 12:00] VITALS: BP 96/60
[2020-03-16 16:00] VITALS: BP 94/43
--- NOTE | 2020-03-16 19:39 | NUR ---
PATIENT RESTING IN BED. NASAL CANNULA OFF WHEN NURSES AID IN TO DO VITALS. PULSE OX 75%. O2 REAPPLIED AND BACK UP TO 93%. PATIENT DENIES NEEDS. CONFUSED TO TIME AND PLACE. BED ALARM ON, BED IN LOW POSITION, CALL LIGHT IN REACH
[2020-03-16 20:00] VITALS: BP 97/50
[2020-03-17] VITALS: BP 121/78
--- NOTE | 2020-03-17 02:42 | NUR ---
PATIENT RESTING IN BED WITH NO S/S OF DISTRESS. BED IN LOWEST POSITION, CALL LIGHT IN REACH
--- NOTE | 2020-03-17 03:47 | NUR ---
24 HR chart check completed.
[2020-03-17 05:58] LABS: BASO # 0.1 10*3/uL (0.0-0.1); BASO % 0.8 % (0.0-1.0); EOS # 0.1 10*3/uL (0.0-0.4); EOS % 0.5 % (1.0-4.0); HEMATOCRIT 40.3 % (37.0-47.0); LYMPH # 1.7 10*3/uL (1.3-4.4); LYMPH % 17.8 % (27.0-41.0); MEAN CELL VOLUME 94.6 fl (81.0-99.0); MEAN CORPUSCULAR HGB 29.3 pg (27.0-31.0); MEAN PLATELET VOLUME 10.9 fl (9.6-12.3); MONO # 1.1 10*3/uL (0.1-1.0); MONO % 11.6 % (3.0-9.0); NEUT # 6.7 10*3/uL (2.3-7.9); NEUT % 68.9 % (47.0-73.0); PLATELET COUNT AUTOMATED 340 10*3/uL (130-400); RED BLOOD COUNT 4.26 10*6/uL (4.10-5.10); RED CELL DISTRI WIDTH 18.4 % (0-14.5); WHITE BLOOD COUNT 9.7 10*3/uL (4.8-10.8)
[2020-03-17 06:02] LABS: BUN 21 mg/dl (7-24); CHLORIDE 109 mmol/L (98-107); CREATININE 0.72 mg/dL (0.55-1.02); POTASSIUM 4.1 mmol/L (3.5-5.1); SODIUM 141 mmol/L (136-145)
[2020-03-17 08:00] VITALS: BP 92/55
--- NOTE | 2020-03-17 09:09 | NUR ---
PT MOANING STATES SHE HAS ALL OVER PAIN. UNABLE TO RATE. PRN NORCO ADMINISTERED. WILL MONITOR FOR EFFECTIVENESS.
--- NOTE | 2020-03-17 10:09 | NUR ---
PT ASLEEP. NO S/S OF DISTRESS OR PAIN. PRN NORCO CONSIDERED EFFECTIVE.
[2020-03-17 12:00] VITALS: BP 90/40
[2020-03-17 16:00] VITALS: BP 94/52
[2020-03-17 20:00] VITALS: BP 130/78
[2020-03-17 23:39] VITALS: BP 70/50
--- NOTE | 2020-03-17 23:44 | NUR ---
DR BARNEY AWARE OF PATIENT'S MANUAL BLOOD PRESSURE. STATES HE WILL PUT ORDERS IN
--- NOTE | 2020-03-17 23:45 | NUR ---
DR BARNEY MADE AWARE OF PATIENT'S ANASARCA
[2020-03-18 01:02] VITALS: BP 84/52
[2020-03-18 02:23] VITALS: BP 124/52
--- NOTE | 2020-03-18 02:24 | NUR ---
UNABLE TO GET MANUAL BLOOD PRESSURE WITHOUT A DOPPLER.
[2020-03-18 06:50] LABS: BASO # 0.1 10*3/uL (0.0-0.1); BASO % 0.6 % (0.0-1.0); EOS # 0.1 10*3/uL (0.0-0.4); EOS % 1.4 % (1.0-4.0); HEMATOCRIT 32.3 % (37.0-47.0); LYMPH # 1.5 10*3/uL (1.3-4.4); LYMPH % 17.4 % (27.0-41.0); MEAN CELL VOLUME 94.4 fl (81.0-99.0); MEAN CORPUSCULAR HGB 29.8 pg (27.0-31.0); MEAN CORPUSCULAR HGB CONC 31.6 g/dl (33.0-37.0); MEAN PLATELET VOLUME 10.8 fl (9.6-12.3); MONO % 11.6 % (3.0-9.0); NEUT # 5.7 10*3/uL (2.3-7.9); NEUT % 68.4 % (47.0-73.0); PLATELET COUNT AUTOMATED 262 10*3/uL (130-400); RED BLOOD COUNT 3.42 10*6/uL (4.10-5.10); RED CELL DISTRI WIDTH 17.9 % (0-14.5); WHITE BLOOD COUNT 8.4 10*3/uL (4.8-10.8)
[2020-03-18 07:08] LABS: BUN 19 mg/dl (7-24); CHLORIDE 108 mmol/L (98-107); CREATININE 0.57 mg/dL (0.55-1.02); POTASSIUM 4.1 mmol/L (3.5-5.1); SODIUM 140 mmol/L (136-145)
[2020-03-18 08:00] VITALS: BP 97/64; BP 98/60
--- NOTE | 2020-03-18 09:53 | NUR ---
Held lopressor this am for MBP of 98/60. HR is 70-80's on cm will continue to monitor.
--- NOTE | 2020-03-18 09:53 | NUR ---
BP WAS 98/60. LOPRESSOR HELD AT THIS TIME.
[2020-03-18 12:00] VITALS: BP 90/50
[2020-03-18 16:00] VITALS: BP 97/48
--- NOTE | 2020-03-18 18:24 | NUR ---
CALLED DR REYES RE: BP TRENDING LOW WITH DROP LASTNIGHT AND BUMEX IV BEING DUE. CURRENT BP 116/44. ORDERS RECEIVED FOR AN ADDITIONAL ALBUMIN TO BE GIVEN BEFORE BUMEX.
[2020-03-18 20:00] VITALS: BP 128/71
--- NOTE | 2020-03-18 20:00 | NUR ---
PATIENT LAYING IN BED AWAKE AND ALERT. SPEECH IS REPEATIVE AND PT HAS A HARD TIME COMPLETING THOUGHTS. PLEASANT AND COOPERATIVE. NO S/S OF DISTRESS OR SOB ON 3L NC. BED IN LOWEST LOCKED POSITION AND CALL LIGHT WITHIN REACH. WILL CONTINUE TO MONITOR.
--- NOTE | 2020-03-18 23:05 | NUR ---
DR. FOX NOTIFIED OF CRITICAL BLOOD CULTURE
[2020-03-19] VITALS: BP 128/73
--- NOTE | 2020-03-19 07:15 | NUR ---
DR GUTIERREZ CONSULT CALLED TO ANSWERING SERVICE
[2020-03-19 07:31] LABS: BASO % 0.3 % (0.0-1.0); EOS # 0.2 10*3/uL (0.0-0.4); HEMATOCRIT 26.7 % (37.0-47.0); LYMPH # 0.8 10*3/uL (1.3-4.4); LYMPH % 14.5 % (27.0-41.0); MEAN CORPUSCULAR HGB 29.2 pg (27.0-31.0); MEAN CORPUSCULAR HGB CONC 30.7 g/dl (33.0-37.0); MEAN PLATELET VOLUME 10.7 fl (9.6-12.3); MONO # 0.6 10*3/uL (0.1-1.0); MONO % 9.6 % (3.0-9.0); NEUT # 4.1 10*3/uL (2.3-7.9); NEUT % 71.1 % (47.0-73.0); PLATELET COUNT AUTOMATED 232 10*3/uL (130-400); RED BLOOD COUNT 2.81 10*6/uL (4.10-5.10); RED CELL DISTRI WIDTH 17.8 % (0-14.5); WHITE BLOOD COUNT 5.7 10*3/uL (4.8-10.8)
[2020-03-19 07:44] LABS: BUN 15 mg/dl (7-24); CHLORIDE 106 mmol/L (98-107); CREATININE 0.48 mg/dL (0.55-1.02); POTASSIUM 3.6 mmol/L (3.5-5.1); SODIUM 141 mmol/L (136-145)
--- NOTE | 2020-03-19 07:52 | NUR ---
LAB CALLED WITH BC RESULTS/SENSITIVITY, Evens ZARCO CELL TUBER MACHINE NOTIFIED.
[2020-03-19 08:00] VITALS: BP 92/56
--- NOTE | 2020-03-19 08:29 | NUR ---
YANN BROOKS [id number] Please refer to the physician's history and physical for past medical history, comorbid conditions, and allergies. Diagnosis: CHF,NYHA CALSS III,ACUTE RESP FAILURE WITH HYPOXEM Fabio Score: 12,HIGH RISK WOUND DESCRIPTIONS: This nurse along with with Justina Aponte RN evaluated patient for skin impairments. Wound Number: 1 Location of the wound: right groin red and blanchable at time of assessment. No open areas noted at time of assessment. No odor noted at time of assessment. Wound Number: 2 Location of the wound: right lower groin red and blanchable at time of assessment. No open areas noted at time of assessment. No odor noted at time of assessment. Surface the patient is resting on: Proform SKIN PREVENTION RECOMMENDATION: 1. Pressure redistribution support surface as appropriate 2. Elevate heels 3. Remove boots/TEDS every shift and reapply 4. Head of bed 30 degrees as tolerated 5. Assess nutrition and hydration 6. Manage moisture 7. Avoid the use of containment devices while in bed 8. Use absorptive products on surfaces limit layers of linens on bed 9. Turn and reposition every 1-2 hours in bed and every 1 hour in chair as tolerated 10. Weight shifts every 15 minutes while up in chair 11. Offloading with pillows or device to keep heels elevated off bed 12. Monitor skin at least every shift 13. Inspect under medical devices twice a day WOUND TREATMENT RECOMMENDATIONS: Cleanse right groin and right lower groin with soap and water and apply hydraguard every shift and prn for soiling. Wheelchair cushion when oob Heel raiser pro boots to bilateral feet while in bed.
--- NOTE | 2020-03-19 11:01 | NUR ---
Shae Alexandra APRN-PILE DRIVER OPERATOR HELPER notified of wound care recommendations.
[2020-03-19 12:00] VITALS: BP 97/50
--- NOTE | 2020-03-19 12:10 | NUR ---
Patient is LTC at [facility]. CHILDCARE CENTER ADMINISTRATOR faxed updates to [facility].
--- NOTE | 2020-03-19 12:46 | NUR ---
Patient resting quietly with no c/o discomfort. Respirations easy and regular. Vital signs stable. No overt distress. CRISTINA WARNER R
--- NOTE | 2020-03-19 15:55 | NUR ---
DR REYES MADE AWARE OF CRITICAL VANC TROUGH 38
[2020-03-19 16:00] VITALS: BP 89/62
--- NOTE | 2020-03-19 16:20 | NUR ---
IN PT ROOM AT THIS TIME AND PT IS SLEEPING, APPEARS TO BE IN NO DISTRESS. CALL LIGHT WITHIN REACH, WILL CONTINUE TO MONITOR
--- NOTE | 2020-03-19 19:53 | NUR ---
24 HR chart check completed.
[2020-03-19 20:00] VITALS: BP 94/47
--- NOTE | 2020-03-19 20:30 | NUR ---
AWAKE, PLEASANTLY CONFUSED. EXPRESSIVE APHASIA NOTED. RESPIRATIONS EASY. LUNGS DIMINISHED. PULSE OX 92% 3L, HUMIDIFICATION APPLIED. ANASARCA NOTED. FOOT DROP NOTED. TUBI-INVESTIGATOR UTILITY BILL COMPLAINTS AND HEEL PROTECTORS APPLIED. BASS PATENT FOR CLAUDIA URINE. CALL LIGHT WITHIN REACH. NO VOICED COMPLAINTS. BED ALARM MAINTAINED FOR SAFETY
[2020-03-20] VITALS: BP 98/46
--- NOTE | 2020-03-20 | NUR ---
SLEEPING. NO DISTRESS NOTED. RESPIRATIONS EASY. VSS. CALL LIGHT WITHIN REACH. BED ALARM MAINTAINE FOR SAFETY
--- NOTE | 2020-03-20 03:39 | NUR ---
Upon discharge recommend patient to follow up for wound care in outpatient setting continue current wound care orders at discharging facility.
[2020-03-20 06:00] LABS: BASO % 0.4 % (0.0-1.0); EOS # 0.2 10*3/uL (0.0-0.4); EOS % 4.2 % (1.0-4.0); HEMATOCRIT 27.1 % (37.0-47.0); LYMPH # 0.8 10*3/uL (1.3-4.4); LYMPH % 13.6 % (27.0-41.0); MEAN CELL VOLUME 95.4 fl (81.0-99.0); MEAN CORPUSCULAR HGB 29.2 pg (27.0-31.0); MEAN CORPUSCULAR HGB CONC 30.6 g/dl (33.0-37.0); MEAN PLATELET VOLUME 10.5 fl (9.6-12.3); MONO # 0.6 10*3/uL (0.1-1.0); MONO % 11.3 % (3.0-9.0); NEUT # 3.9 10*3/uL (2.3-7.9); NEUT % 70.1 % (47.0-73.0); PLATELET COUNT AUTOMATED 248 10*3/uL (130-400); RED BLOOD COUNT 2.84 10*6/uL (4.10-5.10); RED CELL DISTRI WIDTH 17.7 % (0-14.5); WHITE BLOOD COUNT 5.5 10*3/uL (4.8-10.8)
--- NOTE | 2020-03-20 06:00 | NUR ---
SLEPT THROUGHOUT NIGHT WITH NO DISTRESS NOTED. RESPIRATIONS EASY. O2 IN USE. CALL LIGHT WITHIN REACH. NO VOICED COMPLAINTS THIS SHIFT. BED ALARM MAINTAINED FOR SAFETY
[2020-03-20 06:09] LABS: ALBUMIN 2.5 gm/dl (3.1-4.5); ALKALINE PHOSPHATASE 109 U/L (45-117); BUN 10 mg/dl (7-24); CHLORIDE 106 mmol/L (98-107); CREATININE 0.48 mg/dL (0.55-1.02); POTASSIUM 3.5 mmol/L (3.5-5.1); SGOT/AST 9 IU/L (3-35); SGPT/ALT 12 U/L (12-78); SODIUM 141 mmol/L (136-145); TOTAL PROTEIN 5.7 gm/dL (6.4-8.2)
[2020-03-20 08:00] VITALS: BP 112/68
[2020-03-20 12:00] VITALS: BP 97/50
--- NOTE | 2020-03-20 12:30 | NUR ---
DMITRY ZARCO NOTIFIED REGARDING CRITICAL BLOOD CULTURE RESULT.
--- NOTE | 2020-03-20 13:00 | NUR ---
'S OFFICE NOTIFIED REGARDING CRITICAL BLOOD CULTURE.
[2020-03-20 16:00] VITALS: BP 102/53
[2020-03-20 20:00] VITALS: BP 87/48; BP 90/50
--- NOTE | 2020-03-20 20:35 | NUR ---
24 HR chart check completed.
--- NOTE | 2020-03-20 21:00 | NUR ---
AWAKE, RESTING IN BED. RESPIRATIONS EASY. LUNGS DIMINISHED. PULSE OX 92% 3L HUMIDIFIED. GENERALIZED ANASARCA NOTED. BILATERAL TUBI-MACHINIST APPRENTICE AND HEEL PROTECTORS IN PLACE. BASS PATENT. CALL LIGHT WITHIN REACH. NO VOICED COMPLAINTS. BED ALARM MAINTAINED FOR SAFETY
[2020-03-21] VITALS: BP 126/79
--- NOTE | 2020-03-21 | NUR ---
SLEEPING. RESPIRATIONS EASY. VSS. CALL LIGHT WITHIN REACH. BED ALARM MAINTAINED
--- NOTE | 2020-03-21 06:00 | NUR ---
SLEPT THROUGHOUT NIGHT WITH NO DISTRESS NOTED. RESPIRATIONS EASY. O2 IN USE. CALL LIGHT WITHIN REACH. NO VOICED COMPLAINTS THIS SHIFT
[2020-03-21 06:36] LABS: ALBUMIN 2.3 gm/dl (3.1-4.5); ALKALINE PHOSPHATASE 113 U/L (45-117); BUN 15 mg/dl (7-24); CHLORIDE 106 mmol/L (98-107); CREATININE 0.59 mg/dL (0.55-1.02); POTASSIUM 3.4 mmol/L (3.5-5.1); SGOT/AST 18 IU/L (3-35); SGPT/ALT 14 U/L (12-78); SODIUM 141 mmol/L (136-145); TOTAL PROTEIN 5.7 gm/dL (6.4-8.2)
[2020-03-21 08:00] VITALS: BP 120/55
--- NOTE | 2020-03-21 08:00 | NUR ---
IN TO ROOM. PATIENT IS LAYING IN BED POSITIONED MORE TO THE RIGHT SIDE. RIGHT SIDE IS FLACCID. PT IS PLEASANT AND COOPERATIVE WITH CARE. SPEECH IS REPEATIVE. NO STATED COMPLAINTS. NO S/S OF DISTRESS OR SOB NOTED. 3L NC INTACT. RESPIRATIONS ARE EASY AND REGULAR. BED IN LOWEST LOCKED POSITION AND CALL LIGHT WITHIN REACH. WILL CONTINUE TO MONITOR.
[2020-03-21 08:31] LABS: BASO % 0.5 % (0.0-1.0); EOS # 0.2 10*3/uL (0.0-0.4); EOS % 2.5 % (1.0-4.0); HEMATOCRIT 31.4 % (37.0-47.0); LYMPH # 1.2 10*3/uL (1.3-4.4); LYMPH % 16.2 % (27.0-41.0); MEAN CELL VOLUME 93.7 fl (81.0-99.0); MEAN CORPUSCULAR HGB 29.9 pg (27.0-31.0); MEAN CORPUSCULAR HGB CONC 31.8 g/dl (33.0-37.0); MEAN PLATELET VOLUME 11.2 fl (9.6-12.3); MONO # 0.8 10*3/uL (0.1-1.0); MONO % 10.6 % (3.0-9.0); NEUT # 5.2 10*3/uL (2.3-7.9); NEUT % 69.5 % (47.0-73.0); PLATELET COUNT AUTOMATED 282 10*3/uL (130-400); RED BLOOD COUNT 3.35 10*6/uL (4.10-5.10); RED CELL DISTRI WIDTH 18.1 % (0-14.5); WHITE BLOOD COUNT 7.5 10*3/uL (4.8-10.8)
--- NOTE | 2020-03-21 10:00 | NUR ---
[facility] and will return when medically stable. per MDT meeting, patient is not ready for discharge at this time, case management will follow
[2020-03-21 12:00] VITALS: BP 123/54
--- NOTE | 2020-03-21 14:00 | NUR ---
ATTEMPTED TO INSERT MID-LINE W/ NO SUCCESS RIGHT ARM.
[2020-03-21 16:00] VITALS: BP 120/50
--- NOTE | 2020-03-21 16:30 | NUR ---
ASSUMED CARE OF PATIENT AT THIS TIME. PATIENT RESTING IN BED WITH NO COMPLAINTS. ASSESSMENT COMPLETE. CALL LIGHT IN REACH. WILL MONITOR.
[2020-03-21 20:00] VITALS: BP 85/48
[2020-03-22] VITALS: BP 92/41
[2020-03-22 04:00] VITALS: BP 107/35
[2020-03-22 06:39] LABS: BUN 14 mg/dl (7-24); CHLORIDE 101 mmol/L (98-107); CREATININE 0.46 mg/dL (0.55-1.02); POTASSIUM 2.9 mmol/L (3.5-5.1); SODIUM 140 mmol/L (136-145)
[2020-03-22 08:00] VITALS: BP 91/65
[2020-03-22 12:00] VITALS: BP 94/47
--- NOTE | 2020-03-22 12:27 | NUR ---
PT REFUSINF CT ABD, PT EDUCATED ON RISK AND NEED FOR CT PT ADMANTLY REFUSING AT THIS TIME
--- NOTE | 2020-03-22 13:43 | NUR ---
PT IS ASSISTED CARE AT [facility]. WILL RETURN WHEN MEDICALLY STABLE.
--- NOTE | 2020-03-22 15:19 | NUR ---
OK PER FOR PICC PLACEMENT
[2020-03-22 16:00] VITALS: BP 107/59
[2020-03-22 20:00] VITALS: BP 95/40
[2020-03-23] VITALS: BP 90/40
[2020-03-23 06:10] LABS: BASO % 0.4 % (0.0-1.0); EOS # 0.1 10*3/uL (0.0-0.4); EOS % 1.5 % (1.0-4.0); HEMATOCRIT 27.6 % (37.0-47.0); LYMPH # 0.8 10*3/uL (1.3-4.4); LYMPH % 11.1 % (27.0-41.0); MEAN CELL VOLUME 95.2 fl (81.0-99.0); MEAN CORPUSCULAR HGB CONC 30.4 g/dl (33.0-37.0); MEAN PLATELET VOLUME 10.5 fl (9.6-12.3); MONO # 0.7 10*3/uL (0.1-1.0); MONO % 9.8 % (3.0-9.0); NEUT # 5.5 10*3/uL (2.3-7.9); NEUT % 76.6 % (47.0-73.0); PLATELET COUNT AUTOMATED 287 10*3/uL (130-400); RED CELL DISTRI WIDTH 17.9 % (0-14.5); WHITE BLOOD COUNT 7.1 10*3/uL (4.8-10.8)
[2020-03-23 06:32] LABS: ACT PARTIAL THROMBO TIME 29.4 SECONDS (20.0-32.1); INTERNATIONAL NORM RATIO 1.2 (2.0-3.5)
[2020-03-23 06:33] LABS: ALKALINE PHOSPHATASE 107 U/L (45-117); BUN 17 mg/dl (7-24); CHLORIDE 103 mmol/L (98-107); CREATININE 0.76 mg/dL (0.55-1.02); SGOT/AST 13 IU/L (3-35); SGPT/ALT 13 U/L (12-78); SODIUM 142 mmol/L (136-145); TOTAL PROTEIN 5.6 gm/dL (6.4-8.2)
[2020-03-23 06:38] LABS: POTASSIUM 4.1 mmol/L (3.5-5.1)
[2020-03-23 08:00] VITALS: BP 108/60
[2020-03-23 12:00] VITALS: BP 104/56
[2020-03-23 16:00] VITALS: BP 106/60
[2020-03-23 20:00] VITALS: BP 90/50
--- NOTE | 2020-03-23 20:20 | NUR ---
PATIENT ASSESSMENT COMPLETED AT THIS TIME WITHOUT INCIDENT, PATIENT DENIES ANY CHEST PAIN OR SHORTNESS OF BREATH AT THIS TIME. NO SIGNS OR SYMPTOMS OF PAIN NOTED AT THIS TIME, PATIENT RESTING IN BED IN A POSITION OF COMFORT. CALL LIGHT WITHIN REACH WILL CONTINUE TO MONITOR.
[2020-03-24] VITALS: BP 91/53
[2020-03-24 07:28] LABS: CHLORIDE 102 mmol/L (98-107); POTASSIUM 3.9 mmol/L (3.5-5.1); SODIUM 141 mmol/L (136-145)
[2020-03-24 07:45] LABS: BUN 20 mg/dl (7-24)
[2020-03-24 08:00] VITALS: BP 108/43
--- NOTE | 2020-03-24 11:30 | NUR ---
AT BEDSIDE PT AGREEING TO CT ABD/PELVIS DMITRY ZARCO NOTIFIED, ALOS DISCUSSED CODE STATUS WITH , HE WOULDLIKE TO KEEP HER A FULL CODE.
[2020-03-24 12:00] VITALS: BP 108/52
[2020-03-24 16:00] VITALS: BP 110/50
[2020-03-24 20:00] VITALS: BP 99/86
--- NOTE | 2020-03-24 20:48 | NUR ---
DR CORONA AWARE OF BLOOD PRESSURE AND HEART RATE. STATES TO HOLD THE SCHEDULED LOPRESSOR AT THIS TIME. MADE AWARE THAT IT WAS HELD THIS MORNING WELL AND THE PATIENT HAS A HISTORY OF AFIB.
--- NOTE | 2020-03-24 23:55 | NUR ---
24 HR chart check completed.
[2020-03-25] VITALS: BP 90/40
[2020-03-25 05:56] LABS: BASO % 0.5 % (0.0-1.0); EOS # 0.1 10*3/uL (0.0-0.4); EOS % 1.4 % (1.0-4.0); HEMATOCRIT 28.3 % (37.0-47.0); LYMPH % 13.6 % (27.0-41.0); MEAN CORPUSCULAR HGB 28.9 pg (27.0-31.0); MEAN CORPUSCULAR HGB CONC 30.4 g/dl (33.0-37.0); MEAN PLATELET VOLUME 10.2 fl (9.6-12.3); MONO # 0.9 10*3/uL (0.1-1.0); MONO % 11.6 % (3.0-9.0); NEUT # 5.3 10*3/uL (2.3-7.9); NEUT % 72.2 % (47.0-73.0); PLATELET COUNT AUTOMATED 254 10*3/uL (130-400); RED BLOOD COUNT 2.98 10*6/uL (4.10-5.10); RED CELL DISTRI WIDTH 17.5 % (0-14.5); WHITE BLOOD COUNT 7.3 10*3/uL (4.8-10.8)
[2020-03-25 06:11] LABS: ALKALINE PHOSPHATASE 106 U/L (45-117); BUN 19 mg/dl (7-24); CHLORIDE 100 mmol/L (98-107); CREATININE 1.02 mg/dL (0.55-1.02); SGOT/AST 21 IU/L (3-35); SGPT/ALT 13 U/L (12-78); SODIUM 139 mmol/L (136-145)
[2020-03-25 08:00] VITALS: BP 100/67
--- NOTE | 2020-03-25 08:18 | NUR ---
PATIENT IS LTC AT [facility]. MECHANICAL SHOP LABORER FAXED UPDATED CLINICALS TO [facility].
[2020-03-25 12:00] VITALS: BP 95/42
[2020-03-25] MEDS ORDERED: ALDACTONE25 MG PO (12:02)
[2020-03-25] MEDS ORDERED: METOPROLOL TART50 M1 PO (12:02)
[2020-03-25] MEDS ORDERED: CARDIZEM CD180 MG PO (12:02)
[2020-03-25] MEDS ORDERED: ELIQUIS5 M1 PO (12:02)
[2020-03-25 16:00] VITALS: BP 92/69
[2020-03-25 20:00] VITALS: BP 102/42
--- NOTE | 2020-03-25 21:15 | NUR ---
DR RIVERA AWARE OF PATIENT'S BLOOD PRESSURE AND HEART RATE. STATES TO GIVE HALF OF THE SCHEDULED LOPRESSOR
[2020-03-26] VITALS: BP 98/77
--- NOTE | 2020-03-26 06:22 | NUR ---
YANN BROOKS [id number] Please refer to the physician's history and physical for past medical history, comorbid conditions, and allergies. Diagnosis: CHF,NYHA CALSS III,ACUTE RESP FAILURE WITH HYPOXEM Fabio Score: 12,HIGH RISK WOUND DESCRIPTIONS: This nurse along with with Justina Aponte RN evaluated patient for skin impairments. Wound Number: 1 Location of the wound: right groin red and blanchable at time of assessment. No open areas noted at time of assessment. No odor noted at time of assessment. Wound Number: 2 Location of the wound: right lower groin red and blanchable at time of assessment. No open areas noted at time of assessment. No odor noted at time of assessment. Surface the patient is resting on: Proform SKIN PREVENTION RECOMMENDATION: 1. Pressure redistribution support surface as appropriate 2. Elevate heels 3. Remove boots/TEDS every shift and reapply 4. Head of bed 30 degrees as tolerated 5. Assess nutrition and hydration 6. Manage moisture 7. Avoid the use of containment devices while in bed 8. Use absorptive products on surfaces limit layers of linens on bed 9. Turn and reposition every 1-2 hours in bed and every 1 hour in chair as tolerated 10. Weight shifts every 15 minutes while up in chair 11. Offloading with pillows or device to keep heels elevated off bed 12. Monitor skin at least every shift 13. Inspect under medical devices twice a day WOUND TREATMENT RECOMMENDATIONS: D/C dressing change to right groin and right lower groin hydraguard Continue nystatin powder to right groin and right lower groing Continue wheelchair cushion when oob Continue heel raiser pro boots to bilateral feet while in bed.
[2020-03-26 08:00] VITALS: BP 92/42
[2020-03-26] MEDS ORDERED: AMPICILLIN2 GM IV (08:10)
[2020-03-26] MEDS ORDERED: CEFTRIAXONE1 G1 IV (08:20)
--- NOTE | 2020-03-26 08:41 | NUR ---
FIELD SERVICE TECHNICIAN FAXED UPDATES TO [facility]. FIELD SERVICE TECHNICIAN ALSO NOTIFIED [facility] OF PATIENT NEEDING 3 MORE DAYS OF ANTIBIOTICS.
[2020-03-26] MEDS ORDERED: NYSTOP60 GM T (08:52)
--- NOTE | 2020-03-26 08:55 | NUR ---
Shae METZ notified of wound care recommendations
--- NOTE | 2020-03-26 09:45 | NUR ---
SPORTS MEDICINE SPECIALIST NOTIFIED OF PATIET DISCHARGE. SPORTS MEDICINE SPECIALIST SPOKE WITH JUNE RAMIRES. SPORTS MEDICINE SPECIALIST ARRANGED FOR [facility] TO TRANSPORT THE PATIENT TODAY AT 11:30AM. SPORTS MEDICINE SPECIALIST NOTIFIED KEELEY-FORTINO, PATIENTS DAUGHTER SKYLA, AND [facility]. SPORTS MEDICINE SPECIALIST WILL FAX DISCHARGE ORDERS WHEN AVAILABLE.
--- NOTE | 2020-03-26 11:57 | NUR ---
[facility] Discharge instructions reviewed with patient/family. Patient receptive and verbalizes understanding. Follow-up care arranged. Written instructions given to patient/family. IKE YO
--- NOTE | 2020-03-26 12:08 | NUR ---
[facility] Discharge instructions reviewed with patient/family. Patient receptive and verbalizes understanding. Follow-up care arranged. Written instructions given to patient/family. IKE YO
== END 2020-03-26 11:57 | disposition other institution (70) | DRG 871 ==
LOC: ED 16:27 → 4E 18:20 → EDHOLD 18:20 → 4E 18:54
PROVIDERS: Emergency Medicine; Hospitalist; Internal Medicine; Registered Nurse; Student in an Organized Health Care Education/Training Program; ADMIT Internal Medicine
PROC: 05HY33Z Insertion of Infusion Device into Upper Vein, Percutaneous Approach (ICD-10-PCS; principal; 2020-03-25)
DX: A41.81 Sepsis due to Enterococcus (principal); J96.21 Acute and chronic respiratory failure with hypoxia; I50.33 Acute on chronic diastolic (congestive) heart failure; E43 Unspecified severe protein-calorie malnutrition; N30.00 Acute cystitis without hematuria; I48.20 Chronic atrial fibrillation, unspecified; D68.61 Antiphospholipid syndrome; E66.01 Morbid (severe) obesity due to excess calories; E55.9 Vitamin D deficiency, unspecified; E87.8 Other disorders of electrolyte and fluid balance, not elsewhere classified; F03.90 Unspecified dementia, unspecified severity, without behavioral disturbance, psychotic disturbance, mood disturbance, and anxiety; G89.29 Other chronic pain; I11.0 Hypertensive heart disease with heart failure; E78.5 Hyperlipidemia, unspecified; F32.9 Major depressive disorder, single episode, unspecified; E11.9 Type 2 diabetes mellitus without complications; B96.1 Klebsiella pneumoniae [K. pneumoniae] as the cause of diseases classified elsewhere; I50.813 Acute on chronic right heart failure; I27.20 Pulmonary hypertension, unspecified; D64.9 Anemia, unspecified; I08.3 Combined rheumatic disorders of mitral, aortic and tricuspid valves; E87.6 Hypokalemia; R65.20 Severe sepsis without septic shock; R79.89 Other specified abnormal findings of blood chemistry; K21.9 Gastro-esophageal reflux disease without esophagitis; Z99.81 Dependence on supplemental oxygen; Z68.38 Body mass index [BMI] 38.0-38.9, adult; Z86.73 Personal history of transient ischemic attack (TIA), and cerebral infarction without residual deficits; Z91.09 Other allergy status, other than to drugs and biological substances; Z87.440 Personal history of urinary (tract) infections; Z90.49 Acquired absence of other specified parts of digestive tract; Z98.891 History of uterine scar from previous surgery; Z82.3 Family history of stroke; Z82.49 Family history of ischemic heart disease and other diseases of the circulatory system; Z83.3 Family history of diabetes mellitus; Z79.899 Other long term (current) drug therapy; Z79.4 Long term (current) use of insulin

== ENCOUNTER 2020-04-11 16:48 | Inpatient (IN) | payer MEDICARE, MEDICAID ==
[~2020-04-11] VITALS: Ht 175.3 cm; Wt 105.9 kg
[2020-04-11] VITALS (10 sets, daily range): BP systolic 84–115; BP diastolic 37–70
[~2020-04-11 16:48] MED LIST changes: +ALBUTEROL0.63 MG/3 INH; +ALDACTONE25 MG PO; +AMPICILLIN2 GM IV; +CARDIZEM CD180 MG PO; +CEFTRIAXONE1 G1 IV; +NEURONTIN100 MG PO; +NYSTOP60 GM T
[2020-04-11 17:56] LABS: BACTERIA 1+; BILIRUBIN NEGATIVE (NEGATIVE); BLOOD NEGATIVE (NEGATIVE); CLARITY CLOUDY (CLEAR); COLOR YELLOW (YELLOW); EPITHELIAL CELLS TNTC; GLUCOSE NEGATIVE (NEGATIVE); KETONE NEGATIVE (NEGATIVE); LEUKO ESTERASE TRACE (NEGATIVE); NITRITE NEGATIVE (NEGATIVE); UROBILINOGEN 0.2 E.U./dl (0.2-1.0)
[2020-04-11 18:10] LABS: BASO # 0.1 10*3/uL (0.0-0.1); BASO % 0.5 % (0.0-1.0); EOS # 0.1 10*3/uL (0.0-0.4); EOS % 0.5 % (1.0-4.0); HEMATOCRIT 29.5 % (37.0-47.0); LYMPH # 1.5 10*3/uL (1.3-4.4); LYMPH % 11.5 % (27.0-41.0); MEAN CELL VOLUME 102.8 fl (81.0-99.0); MEAN CORPUSCULAR HGB CONC 30.2 g/dl (33.0-37.0); MEAN PLATELET VOLUME 10.8 fl (9.6-12.3); MONO # 0.8 10*3/uL (0.1-1.0); MONO % 6.3 % (3.0-9.0); NEUT # 10.4 10*3/uL (2.3-7.9); NEUT % 80.4 % (47.0-73.0); NUCLEATED RED BLOOD CELL 0.2 % (0.0-0.0); PLATELET COUNT AUTOMATED 405 10*3/uL (130-400); RED BLOOD COUNT 2.87 10*6/uL (4.10-5.10); RED CELL DISTRI WIDTH 22.3 % (0-14.5)
[2020-04-11 18:22] LABS: ACT PARTIAL THROMBO TIME 25.8 SECONDS (20.0-32.1); INTERNATIONAL NORM RATIO 1.2 (2.0-3.5)
[2020-04-11 18:31] LABS: ALBUMIN 2.4 gm/dl (3.1-4.5); CREATININE 1.16 mg/dL (0.55-1.02); POTASSIUM 5.4 mmol/L (3.5-5.1); TOTAL PROTEIN 6.4 gm/dL (6.4-8.2)
[2020-04-11 18:34] LABS: TROPONIN I 0.021 ng/ml (<0.045)
--- NOTE | 2020-04-11 20:48 | NUR ---
Received report from Moira SWEENEY.
--- NOTE | 2020-04-11 22:43 | NUR ---
A 74, admitted to [facility], under the services of ANTHONY Wasserman DO with a diagnosis of AFIB WITH RVR. Chief complaint is PAIN. Patient arrived via bed from ER. Monitor applied. Initial assessment completed. Vital signs taken and recorded. ANTHONY WASSERMAN DO notified of admission to the unit. Orders received. See assessment for past medical history, medications and allergies. Patient and/or family oriented to unit. [facility] visitation policy reviewed. Clothing/patient valuable form completed. YOJANA ALEXIS
--- NOTE | 2020-04-11 22:53 | NUR ---
Cardiezm drip stoped at this time.
--- NOTE | 2020-04-11 23:00 | NUR ---
report from Letty cherry
--- NOTE | 2020-04-11 23:01 | NUR ---
In to see pt at this time.Pt is confused and will just scream and not say name at this time.Pt has 20 gauge rac intact at this time.Pt has plus 4 edema on lower legs and elvated at this time.Pt also has compression sleeve on right arm which arms are a plus 3 edema.Pt was turned and no wounds noted on buttock area.Some purple hues noted on left upper arm and legs at this time.
--- NOTE | 2020-04-11 23:10 | NUR ---
aware of blood pressure in the 80s and cardiezm drip stopped at this time.Aware of lasix not given at this time.No orders at this time.
--- NOTE | 2020-04-11 23:10 | NUR ---
DR. MENJIVAR NOTIFIED OF CRITICAL LACTIC ACID OF 3.9
--- NOTE | 2020-04-11 23:24 | NUR ---
UPON ENTERING ROOM, PT REFUSING NURSE TO ASSESS SKIN FOR IMPAIRMENTS. WHEN NURSE ASKS PT, PT STATES "NO!". PT COMBATIVE AT THIS TIME WELL. WILL NOTIFY WOUND CARE AND PHYSICIAN
--- NOTE | 2020-04-11 23:34 | NUR ---
Spoke with Festus Storm aware of blood pressure in the 80s systolic at this time.Stated pt does not need to go to the unit at this time and he will place orders for her.
--- NOTE | 2020-04-11 23:39 | NUR ---
Spoke with .Stated he spoke to and they do not want called unless blood pressure is in the 70s systolic at this time.Ok with increased heart rate at this time.
--- NOTE | 2020-04-11 23:41 | NUR ---
Also orderd to keep cardiezm off at this time per and is aware that drip has been off for 30 minutes at this time.
[2020-04-12] VITALS (13 sets, daily range): BP systolic 71–123; BP diastolic 48–81
[2020-04-12] MEDS ORDERED: GLUCOPHAGE1000 MG R (00:06)
[2020-04-12] MEDS ORDERED: GLUCOPHAGE500 M1 PO (00:07)
[2020-04-12] MEDS ORDERED: METOPROLOL TART50 M1 PO (00:08)
--- NOTE | 2020-04-12 00:34 | NUR ---
Pt has legs elevated and some weeping noted from right lower foot at this time.
--- NOTE | 2020-04-12 00:48 | NUR ---
Pt currently sleeping at this time.
--- NOTE | 2020-04-12 01:03 | NUR ---
Pt refused to have blood drawn at this time.
--- NOTE | 2020-04-12 01:27 | NUR ---
SPOKE TO DR. RIVERA REGARDING THIS PATIENTS HR AND BP AT THIS TIME. HR 128 WITH BP 123/92. DR. RIVERA STATES TO START CARDIZEM DRIP AT 5 AND MONITOR PRESSURE. OKAY TO TITRATE BP TOLERATES.
--- NOTE | 2020-04-12 01:30 | NUR ---
CALLED [facility] REGARDING CONSULT FOR THIS PATIENT. DR. LEACH IS SERVICE GIRL.
--- NOTE | 2020-04-12 01:30 | NUR ---
Cardiezm drip started at 5cc an hour infusing into right 20gauge iv.
--- NOTE | 2020-04-12 01:36 | NUR ---
Pt turned at this time,50cc of dark yellow urine dumped.
--- NOTE | 2020-04-12 01:46 | NUR ---
Caridezm drip stopped at this time.
--- NOTE | 2020-04-12 01:51 | NUR ---
Attempted to do manual blood pressure at this time and not able to hear anything.
--- NOTE | 2020-04-12 01:55 | NUR ---
aware of decrease of blood pressure into the 70s after cardiezm restart at 5cc an hour.Aware of only 50cc of urine at this time from 11pm.Also aware that pt has plus 4 edema in legs at this time.Orders for no more of cardiezm at this time.Aware of heart rate in afib in 120s to 130s.Orders for .25 mg/ 250mcg of diagoxin at this time.
--- NOTE | 2020-04-12 01:56 | NUR ---
aware of pt refusing labs at this time also.
--- NOTE | 2020-04-12 02:48 | NUR ---
Report given to Kandice adams rn.
--- NOTE | 2020-04-12 03:00 | NUR ---
Pt taken to floor on cardic monitor at this time.
--- NOTE | 2020-04-12 03:45 | NUR ---
PT TO FLOOR AT THIS TIME.
--- NOTE | 2020-04-12 04:24 | NUR ---
MESSAGE LEFT FOR NEED FOR CALL BACK WITH DR. LEACH AGAIN AT THIS TIME.
--- NOTE | 2020-04-12 04:27 | NUR ---
DR. LEACH RETURNED CALL. ORDER FOR IV LOPRESSOR RECEIVED.
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
--- NOTE | 2020-04-12 05:27 | NUR ---
PT HR LOW 100'S AT THIS TIME. IV LOPRESSOR EFFECTIVE
--- NOTE | 2020-04-12 06:49 | NUR ---
DR. LEACH ANSWERING SERVICE NOTIFIED OF PT HR 110'S-120'S. WAITING OPHTHALMIC TECH BACK
--- NOTE | 2020-04-12 06:50 | NUR ---
DR. LEACH NOTIFIED OF BP 96/67. ORDERED TO GIVE IV DIGOXIN.
--- NOTE | 2020-04-12 07:52 | NUR ---
Dr. Bueno notified of wound care recommendations.
--- NOTE | 2020-04-12 09:00 | NUR ---
Bomb Squad Commander in to talk to patient. Patient states lives at [facility] with other residents. There are no steps in the home. Physician: amanda Pharmacy: per [facility] Home health services: none Patient's level of ADLs: MODERATE ASSIST Patient has working utilities: all working DME: per [facility] Follow-up physician's appointment after d/c: will be seen by house doctor, Dr Hytat at [facility] when returns Does patient want to access PORTAL?: no Discharge plan patient is a skilled nursing resident of [facility] and will return when discharged, she will need an ambulance transport when returning, case management will follow. SIDRA KIM
[2020-04-12 10:03] LABS: ALBUMIN 2.6 gm/dl (3.1-4.5); CREATININE 1.55 mg/dL (0.55-1.02); POTASSIUM 5.5 mmol/L (3.5-5.1); TOTAL PROTEIN 6.8 gm/dL (6.4-8.2)
[2020-04-12 10:04] LABS: ACT PARTIAL THROMBO TIME 26.6 SECONDS (20.0-32.1); INTERNATIONAL NORM RATIO 1.3 (2.0-3.5)
[2020-04-12 10:05] LABS: BASO % 0.3 % (0.0-1.0); HEMATOCRIT 32.5 % (37.0-47.0); LYMPH # 1.1 10*3/uL (1.3-4.4); MEAN CELL VOLUME 106.6 fl (81.0-99.0); MEAN CORPUSCULAR HGB 30.5 pg (27.0-31.0); MEAN CORPUSCULAR HGB CONC 28.6 g/dl (33.0-37.0); MONO # 0.8 10*3/uL (0.1-1.0); MONO % 5.7 % (3.0-9.0); NEUT % 85.1 % (47.0-73.0); NUCLEATED RED BLOOD CELL 0.1 10*3/uL (0.0-0.0); NUCLEATED RED BLOOD CELL 0.4 % (0.0-0.0); PLATELET COUNT AUTOMATED 437 10*3/uL (130-400); RED BLOOD COUNT 3.05 10*6/uL (4.10-5.10); WHITE BLOOD COUNT 14.1 10*3/uL (4.8-10.8)
--- NOTE | 2020-04-12 13:32 | NUR ---
DR. GREENE AWARE OF HR.
--- NOTE | 2020-04-12 19:10 | NUR ---
REPORT RECEIVED FROM HUAN WATKINS. PT LYING IN BED, LAB AT BEDSIDE. IV FLUIDS INFUSING WITHOUT DIFFICULTY. CALL LIGHT IN REACH
--- NOTE | 2020-04-12 20:00 | NUR ---
PT DINNER TRAY STILL FULL AT THIS TIME. OFFERED BITES TO PATIENT, SHE REFUSED. NO COMPLAINTS VOICED. O2 INTACT, CALL LIGHT IN REACH
--- NOTE | 2020-04-12 22:00 | NUR ---
PT IV SITE BAD AT THIS TIME. SEVERAL ATTEMPTS BY STAFF WERE TRIED, NO ONE SUCCESSFUL. DR. RIVERA NOTIFIED OF NEED FOR POSSIBLE PICC OR MIDLINE. STATED THAT HE WOULD BE UP
--- NOTE | 2020-04-12 23:30 | NUR ---
DR. RIVERA TO FLOOR, MIDLINE PLACED. IV FLUIDS REATTACHED AND INFUSING WITHOUT DIFFICULTY. CALL LIGHT IN REACH OF PATIENT
[2020-04-13] VITALS (13 sets, daily range): BP systolic 92–117; BP diastolic 46–86
--- NOTE | 2020-04-13 02:00 | NUR ---
PT IV FLUIDS INFUSING WITHOUT DIFFICULTY. PT SLEEPING AT THIS TIME. CALL LIGHT IN REACH
--- NOTE | 2020-04-13 05:00 | NUR ---
IN TO PT ROOM TO PASS MEDICATIONS. PT REFUSING TO TAKE ORAL MEDICATIONS. PT SAYING "NO!" WHEN THIS NURSE ASKED TO TAKE PILL. O2 INTACT. CALL LIGHT IN REACH
[2020-04-13 06:02] LABS: BASO % 0.2 % (0.0-1.0); HEMATOCRIT 24.7 % (37.0-47.0); LYMPH # 0.7 10*3/uL (1.3-4.4); LYMPH % 5.7 % (27.0-41.0); MEAN CELL VOLUME 105.1 fl (81.0-99.0); MEAN CORPUSCULAR HGB 31.1 pg (27.0-31.0); MEAN CORPUSCULAR HGB CONC 29.6 g/dl (33.0-37.0); MEAN PLATELET VOLUME 11.4 fl (9.6-12.3); MONO # 0.9 10*3/uL (0.1-1.0); MONO % 7.4 % (3.0-9.0); NEUT # 10.3 10*3/uL (2.3-7.9); NUCLEATED RED BLOOD CELL 0.3 % (0.0-0.0); PLATELET COUNT AUTOMATED 330 10*3/uL (130-400); RED BLOOD COUNT 2.35 10*6/uL (4.10-5.10); RED CELL DISTRI WIDTH 22.7 % (0-14.5)
[2020-04-13 06:04] LABS: ALBUMIN 2.2 gm/dl (3.1-4.5); CREATININE 1.67 mg/dL (0.55-1.02); POTASSIUM 5.6 mmol/L (3.5-5.1); TOTAL PROTEIN 5.8 gm/dL (6.4-8.2)
--- NOTE | 2020-04-13 11:24 | NUR ---
PRE BLOOD VITALS ARE COMPLETE.
--- NOTE | 2020-04-13 13:10 | NUR ---
PATIENT ASSISTED WITH GETTING HER TO TAKE HER PILLS.
--- NOTE | 2020-04-13 15:40 | NUR ---
COMPLETED TAR AND COULD NO LONGER DOCUMENT VSS SO LAST VIATL 1540 DOCUMENTED IN VITAL SIGN SCREEN. POST VSS TO BE DOCUMENTED IN VITALS ALSO.
--- NOTE | 2020-04-13 15:55 | NUR ---
1540 IS COMPLETION OF BLOOD TRANSFUSION. DR. STILES AWARE OF OUTPUT. DR. BLACK GROUP PAGED FOR CONSULT.
--- NOTE | 2020-04-13 16:10 | NUR ---
POST BLOOD VITALS ARE CHARTED.
--- NOTE | 2020-04-13 19:21 | NUR ---
PAGED NEPHROLOGY AGAIN.
--- NOTE | 2020-04-13 19:28 | NUR ---
DR. MENDEZ NOTIFIED.
[2020-04-14] VITALS: BP 108/50
[2020-04-14 06:30] LABS: BASO % 0.1 % (0.0-1.0); HEMATOCRIT 30.4 % (37.0-47.0); LYMPH # 0.5 10*3/uL (1.3-4.4); LYMPH % 5.8 % (27.0-41.0); MEAN CELL VOLUME 103.8 fl (81.0-99.0); MEAN CORPUSCULAR HGB 30.4 pg (27.0-31.0); MEAN CORPUSCULAR HGB CONC 29.3 g/dl (33.0-37.0); MEAN PLATELET VOLUME 10.7 fl (9.6-12.3); MONO # 0.7 10*3/uL (0.1-1.0); MONO % 8.4 % (3.0-9.0); NEUT # 7.4 10*3/uL (2.3-7.9); NUCLEATED RED BLOOD CELL 0.2 % (0.0-0.0); PLATELET COUNT AUTOMATED 279 10*3/uL (130-400); RED BLOOD COUNT 2.93 10*6/uL (4.10-5.10); RED CELL DISTRI WIDTH 22.7 % (0-14.5); WHITE BLOOD COUNT 8.7 10*3/uL (4.8-10.8)
--- NOTE | 2020-04-14 06:33 | NUR ---
CHART CHECK COMPLETE.
[2020-04-14 06:52] LABS: CREATININE 1.53 mg/dL (0.55-1.02)
[2020-04-14 08:00] VITALS: BP 100/40
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
[2020-04-14 12:00] VITALS: BP 96/50
--- NOTE | 2020-04-14 12:00 | NUR ---
PATIENT TAKE TO CAT SCAN PER ORDER. IVF DISCONTINUED. AT BEDSIDE.
[2020-04-14 16:00] VITALS: BP 114/44
[2020-04-14 20:00] VITALS: BP 115/50
[2020-04-15] VITALS: BP 112/50
--- NOTE | 2020-04-15 05:14 | NUR ---
Upon discharge recommend patient to follow up for wound care in outpatient setting continue current wound care orders at discharging facility.
[2020-04-15 06:42] LABS: BASO % 0.1 % (0.0-1.0); EOS % 0.5 % (1.0-4.0); HEMATOCRIT 27.2 % (37.0-47.0); LYMPH # 0.4 10*3/uL (1.3-4.4); LYMPH % 5.9 % (27.0-41.0); MEAN CELL VOLUME 102.3 fl (81.0-99.0); MEAN CORPUSCULAR HGB 30.1 pg (27.0-31.0); MEAN CORPUSCULAR HGB CONC 29.4 g/dl (33.0-37.0); MEAN PLATELET VOLUME 10.7 fl (9.6-12.3); MONO # 0.7 10*3/uL (0.1-1.0); MONO % 9.1 % (3.0-9.0); NEUT # 6.2 10*3/uL (2.3-7.9); NUCLEATED RED BLOOD CELL 0.3 % (0.0-0.0); PLATELET COUNT AUTOMATED 260 10*3/uL (130-400); RED BLOOD COUNT 2.66 10*6/uL (4.10-5.10); RED CELL DISTRI WIDTH 21.4 % (0-14.5); WHITE BLOOD COUNT 7.4 10*3/uL (4.8-10.8)
[2020-04-15 06:54] LABS: CREATININE 1.33 mg/dL (0.55-1.02); POTASSIUM 4.3 mmol/L (3.5-5.1)
--- NOTE | 2020-04-15 07:15 | NUR ---
DR. RIVERA AWARE OF BLOOD CULTURE FROM 04/03 + MIHAELA CRUZ.
[2020-04-15 08:00] VITALS: BP 96/50
--- NOTE | 2020-04-15 08:31 | NUR ---
PT RESTING IN BED. EYES CLOSED. NO DISTRESS NOTED. WILL MONITOR
--- NOTE | 2020-04-15 09:00 | NUR ---
[facility] and will return when discharged, case management will follow
--- NOTE | 2020-04-15 09:02 | NUR ---
Patient comes in from [facility]. Requires Covid-19 testing to return.
--- NOTE | 2020-04-15 10:31 | NUR ---
PHYSICAL THERAPY Initial eval done at bedside. See eval for details. Pt was not picked up for active PT caseload due to status/not appropriate for functional training; would require nursing to marilou lift to recliner if out of bed activity was ordered. Mei Mayo, PT
--- NOTE | 2020-04-15 11:00 | NUR ---
CALLED AND SPOKE WITH DR RIVERA REGARDING PT CARDIZEM DUE AND BP 97/48, 96/50 OK TO GIVE MED PER DR RIVERA
[2020-04-15 12:00] VITALS: BP 97/48
--- NOTE | 2020-04-15 12:25 | NUR ---
dr luna office notified of consult
[2020-04-15 16:00] VITALS: BP 98/48
[2020-04-15 17:11] LABS: BILIRUBIN NEGATIVE (NEGATIVE); CLARITY CLEAR (CLEAR); COLOR YELLOW (YELLOW); GLUCOSE NEGATIVE (NEGATIVE)
[2020-04-15 17:12] LABS: BLOOD TRACE-INTACT (NEGATIVE); KETONE NEGATIVE (NEGATIVE); LEUKO ESTERASE TRACE (NEGATIVE); NITRITE NEGATIVE (NEGATIVE); SPECIFIC GRAVITY 1.015 (1.005-1.030); UROBILINOGEN 0.2 E.U./dl (0.2-1.0)
[2020-04-15 17:13] LABS: BACTERIA 1+
[2020-04-15 17:14] LABS: MUCOUS 1+; YEAST 4+
[2020-04-15 20:00] VITALS: BP 105/49
--- NOTE | 2020-04-15 20:22 | NUR ---
24 HR chart check completed.
--- NOTE | 2020-04-15 20:30 | NUR ---
RESTING IN BED WITH NO ACUTE DISTRESS NOTED. RESPIRATIONS EASY. LUNGS DIMINISHED. PULSE OX 100% 2L. BASS PATENT. DRESSINGS MAINTAINED TO BLE WITH HEEL PROTECTORS IN PLACE. CALL LIGHT WITHIN REACH. NO VOICED COMPLAINTS. BED ALARM MAINTAINED FOR SAFETY
[2020-04-16] VITALS: BP 97/50
--- NOTE | 2020-04-16 | NUR ---
SLEEPING. NO DISTRESS NOTED. RESPIRATIONS EASY. VSS. CALL LIGHT WITHIN REACH. BED ALARM MAINTAINED
--- NOTE | 2020-04-16 06:00 | NUR ---
slept throughout night with no distress noted. respirations easy. o2 in use. call light within reach. no voiced complaints this shift. bed alarm maintained for safety
[2020-04-16 06:53] LABS: CREATININE 1.13 mg/dL (0.55-1.02)
--- NOTE | 2020-04-16 07:38 | NUR ---
Patient is long term care pharmacist care at [facility]. Updates, physical therapy eval faxed. Covid test results still pending.
[2020-04-16 08:00] VITALS: BP 97/68
--- NOTE | 2020-04-16 09:00 | NUR ---
case management visits with patient, she will return to [facility] where she [facility] a [facility], when she is medically stable, case mangement will follow
--- NOTE | 2020-04-16 09:15 | NUR ---
IN TO SEE PATIENT.
--- NOTE | 2020-04-16 09:24 | NUR ---
PT ACCEPTED MEDS WHOLE IN APPLESAUCE. 02 REMAINS IN USE. WILL CONTINUE TO MONITOR. PT REFUSING DRESSING REMOVAL TO BLLE AT THIS TIME. WILL TRY AGAIN LATER. CALL LIGHT WITHIN REACH. BED ALARM MAINTAINED FOR SAFETY.
[2020-04-16 12:00] VITALS: BP 113/31
--- NOTE | 2020-04-16 13:21 | NUR ---
VISITOR AT BEDSIDE.
[2020-04-16 16:00] VITALS: BP 108/51
--- NOTE | 2020-04-16 16:00 | NUR ---
PATIENT RESTING COMFORTABLY IN BED. NO DISTRESS NOTED. 02 IN USE VIA 2LNC. VSS. WILL CONTINUE TO MONITOR. CALL LIGHT WITHIN REACH. VSS.
--- NOTE | 2020-04-16 19:46 | NUR ---
24 HR chart check completed.
[2020-04-16 20:00] VITALS: BP 102/40
--- NOTE | 2020-04-16 20:30 | NUR ---
SLEEPING, AWAKENS EASILY. RESPIRATIONS EASY. LUNGS DIMINISHED. PULSE OX 97% 2L. BASS PATENT. BLE EDEMATOUS WITH DRESSINGS AND HEEL PROTECTORS IN PLACE. CALL LIGHT WITHIN REACH. NO VOICED COMPLAINTS. BED ALARM MAINTAINED FOR SAFETY
[2020-04-17] VITALS: BP 99/52
--- NOTE | 2020-04-17 | NUR ---
SLEEPING. NO ACUTE DISTRESS NOTED. RESPIRATIONS EASY. VSS. CALL LIGHT WITHIN REACH. BED ALARM MAINTAINED
--- NOTE | 2020-04-17 06:00 | NUR ---
SLEPT THROUGHOUT NIGHT WITH NO DISTRESS NOTED. RESPIRATIONS EASY. O2 IN USE. CALL LIGHT WITHIN REACH. NO VOICED COMPLAINTS THIS SHIFT
--- NOTE | 2020-04-17 06:00 | NUR ---
LABS DRAWN VIA MIDLINE.
[2020-04-17 06:37] LABS: BASO % 0.2 % (0.0-1.0); EOS # 0.3 10*3/uL (0.0-0.4); EOS % 4.2 % (1.0-4.0); HEMATOCRIT 27.2 % (37.0-47.0); LYMPH # 0.6 10*3/uL (1.3-4.4); LYMPH % 9.2 % (27.0-41.0); MEAN CELL VOLUME 102.6 fl (81.0-99.0); MEAN CORPUSCULAR HGB 30.6 pg (27.0-31.0); MEAN CORPUSCULAR HGB CONC 29.8 g/dl (33.0-37.0); MONO # 0.6 10*3/uL (0.1-1.0); MONO % 10.3 % (3.0-9.0); NEUT # 4.7 10*3/uL (2.3-7.9); NEUT % 75.6 % (47.0-73.0); PLATELET COUNT AUTOMATED 255 10*3/uL (130-400); RED BLOOD COUNT 2.65 10*6/uL (4.10-5.10); WHITE BLOOD COUNT 6.2 10*3/uL (4.8-10.8)
[2020-04-17 07:05] LABS: CHLORIDE 111 mmol/L (98-107); CREATININE 0.89 mg/dL (0.55-1.02); POTASSIUM 4.2 mmol/L (3.5-5.1); SODIUM 143 mmol/L (136-145)
[2020-04-17 07:06] LABS: BUN 33 mg/dl (7-24)
[2020-04-17 08:00] VITALS: BP 100/62
--- NOTE | 2020-04-17 08:00 | NUR ---
PATIENT SLEEPING. AROUSES EASILY. 02 IN USE VIA 2LNC. POX 99% VIA 2L. LUNGS DIMINISHED T/O. BSAS PATENT. DRESSINGS INTACT TO BLLE WITH HEEL PROTECTORS. WILL CONTINUE TO MONITOR. CALL LIGHT WITHIN REACH.
--- NOTE | 2020-04-17 10:00 | NUR ---
PATIENT REFUSING REMOVAL OF BLLE WRAPS. WRAPS APPLIED DUE TO SEEPAGE OF LEGS. WILL TRY AGAIN LATER.
[2020-04-17 12:00] VITALS: BP 98/50
[2020-04-17 16:00] VITALS: BP 111/49
--- NOTE | 2020-04-17 19:12 | NUR ---
24 HR CHART CHECK COMPLETE.
[2020-04-17 20:00] VITALS: BP 91/50
[2020-04-18] VITALS: BP 90/60
--- NOTE | 2020-04-18 07:43 | NUR ---
Updates faxed to [facility] for review. patient is rat exterminator care and ok to return when medically stable
[2020-04-18 08:00] VITALS: BP 115/58
--- NOTE | 2020-04-18 08:10 | NUR ---
24 HR chart check completed.
--- NOTE | 2020-04-18 08:10 | NUR ---
PT SLEEPING IN BED AT THIS TIME. RESPIRATIONS EASY AND UNLABORED. NO S/S OF DISTRESS NOTED. SAFETY MEASURES IN PLACE. CALL LIGHT IN REACH.
[2020-04-18] MEDS ORDERED: GABAPENTIN100 M2 PO (10:46)
--- NOTE | 2020-04-18 11:43 | NUR ---
[facility], assistant media planner will make transportation arrangements
[2020-04-18 12:00] VITALS: BP 119/72
--- NOTE | 2020-04-18 13:00 | NUR ---
Patient is discharged to return to [facility] via [facility] ambulance at 2PM. Discharge orders faxed. checking clerk/nursing and daughter all notified.
--- NOTE | 2020-04-18 13:22 | NUR ---
REPORT CALLED TO NURSE BARRIENTOS AT [facility].
--- NOTE | 2020-04-18 14:13 | NUR ---
Discharge instructions reviewed with patient/family. Patient receptive and verbalizes understanding. Follow-up care arranged. Written instructions given to patient/family. KAY BEDOYA
--- NOTE | 2020-04-18 14:13 | NUR ---
PT LEAVES FACILITY VIA [facility].
== END 2020-04-18 14:13 | disposition other institution (70) | DRG 871 ==
LOC: ED 16:48 → 4E 19:56 → EDHOLD 19:56 → 4E 04-12 02:43
PROVIDERS: Internal Medicine; Nurse Practitioner Family; ADMIT Internal Medicine
PROC: 30233N1 Transfusion of Nonautologous Red Blood Cells into Peripheral Vein, Percutaneous Approach (ICD-10-PCS; principal; 2020-04-13)
DX: A41.1 Sepsis due to other specified staphylococcus (principal); G93.41 Metabolic encephalopathy; J96.21 Acute and chronic respiratory failure with hypoxia; N17.0 Acute kidney failure with tubular necrosis; I50.33 Acute on chronic diastolic (congestive) heart failure; D68.9 Coagulation defect, unspecified; E87.2 Acidosis; D68.61 Antiphospholipid syndrome; I48.20 Chronic atrial fibrillation, unspecified; K86.2 Cyst of pancreas; N39.0 Urinary tract infection, site not specified; I13.0 Hypertensive heart and chronic kidney disease with heart failure and stage 1 through stage 4 chronic kidney disease, or unspecified chronic kidney disease; I38 Endocarditis, valve unspecified; Z16.12 Extended spectrum beta lactamase (ESBL) resistance; D47.3 Essential (hemorrhagic) thrombocythemia; Z20.828 Contact with and (suspected) exposure to other viral communicable diseases; D53.9 Nutritional anemia, unspecified; E87.5 Hyperkalemia; E87.8 Other disorders of electrolyte and fluid balance, not elsewhere classified; F32.9 Major depressive disorder, single episode, unspecified; K21.9 Gastro-esophageal reflux disease without esophagitis; Z99.81 Dependence on supplemental oxygen; R26.2 Difficulty in walking, not elsewhere classified; E55.9 Vitamin D deficiency, unspecified; E53.8 Deficiency of other specified B group vitamins; G89.29 Other chronic pain; N18.9 Chronic kidney disease, unspecified; E11.22 Type 2 diabetes mellitus with diabetic chronic kidney disease; E11.65 Type 2 diabetes mellitus with hyperglycemia; R65.20 Severe sepsis without septic shock; R82.71 Bacteriuria; L89.152 Pressure ulcer of sacral region, stage 2; B96.20 Unspecified Escherichia coli [E. coli] as the cause of diseases classified elsewhere; Z86.73 Personal history of transient ischemic attack (TIA), and cerebral infarction without residual deficits; I27.20 Pulmonary hypertension, unspecified; Z90.49 Acquired absence of other specified parts of digestive tract; Z82.49 Family history of ischemic heart disease and other diseases of the circulatory system; Z79.899 Other long term (current) drug therapy; Z79.4 Long term (current) use of insulin; Z91.048 Other nonmedicinal substance allergy status

== ENCOUNTER 2020-04-28 15:00 | Inpatient (IN) | payer MEDICARE, MEDICAID ==
[~2020-04-28] VITALS: Ht 177.8 cm; Wt 103.4 kg
[2020-04-28 15:00] VITALS: BP 92/35
[~2020-04-28 15:00] MED LIST changes: +GABAPENTIN100 M2 PO; +GLUCOPHAGE500 MG PO
[2020-04-28 17:00] VITALS: BP 93/20
[2020-04-28 17:01] LABS: BASO % 0.3 % (0.0-1.0); EOS # 0.1 10*3/uL (0.0-0.4); EOS % 1.1 % (1.0-4.0); HEMATOCRIT 32.7 % (37.0-47.0); LYMPH # 0.8 10*3/uL (1.3-4.4); LYMPH % 6.8 % (27.0-41.0); MEAN CELL VOLUME 102.2 fl (81.0-99.0); MEAN CORPUSCULAR HGB 31.3 pg (27.0-31.0); MEAN CORPUSCULAR HGB CONC 30.6 g/dl (33.0-37.0); MEAN PLATELET VOLUME 10.6 fl (9.6-12.3); MONO # 0.5 10*3/uL (0.1-1.0); NEUT # 9.8 10*3/uL (2.3-7.9); NEUT % 87.1 % (47.0-73.0); PLATELET COUNT AUTOMATED 287 10*3/uL (130-400); RED CELL DISTRI WIDTH 18.4 % (0-14.5); WHITE BLOOD COUNT 11.2 10*3/uL (4.8-10.8)
[2020-04-28 17:12] LABS: ACT PARTIAL THROMBO TIME 31.9 SECONDS (20.0-32.1); INTERNATIONAL NORM RATIO 1.2 (2.0-3.5)
[2020-04-28 17:17] LABS: CREATININE 1.12 mg/dL (0.55-1.02); POTASSIUM 3.1 mmol/L (3.5-5.1); TOTAL PROTEIN 5.8 gm/dL (6.4-8.2)
[2020-04-28 17:18] LABS: TROPONIN I 0.03 ng/ml (<0.045)
[2020-04-28 17:30] VITALS: BP 94/50
[2020-04-28 18:00] VITALS: BP 92/56
--- NOTE | 2020-04-28 18:30 | NUR ---
PATIENT BEDSIDE REPORT GIVEN TO DEO WATKINS AT THIS TIME.
--- NOTE | 2020-04-28 18:35 | NUR ---
A 74, admitted to , under the services of CINDY Rodriguez DO with a diagnosis of HEART FAILURE, WEAKNESS. Chief complaint is WEAKNESS. Patient arrived via bed from ER. Monitor applied. Initial assessment completed. Vital signs taken and recorded. CINDY RODRIGUEZ DO notified of admission to the unit. Orders received. See assessment for past medical history, medications and allergies. Patient and/or family oriented to unit. [facility] visitation policy reviewed. Clothing/patient valuable form completed. YOJANA ALEXIS
[2020-04-28] MEDS ORDERED: CARDIZEM LA180 MG PO (18:41)
[2020-04-28] MEDS ORDERED: IRON325 M1 PO (18:42)
[2020-04-28] MEDS ORDERED: NOVOLOG FL100 UNIT/2 SC (18:53)
[2020-04-28] MEDS ORDERED: ELIQUIS5 M1 PO (18:55)
[2020-04-28] MEDS ORDERED: TYLENOL325 M1 PO (18:57)
--- NOTE | 2020-04-28 18:58 | NUR ---
MED REC UPDATED PER LONGTERM PAPERS
[2020-04-28 20:50] VITALS: BP 90/42
--- NOTE | 2020-04-28 20:54 | NUR ---
DR. MCCRAY NOTIFIED OF PATIENT VITAL SIGNS REQUESTED. NO NEW ORDERS RECEIVED AT THIS TIME.
--- NOTE | 2020-04-28 22:00 | NUR ---
PHOTOS TAKEN OF WOUND ON LEFT CALF AND BILATERAL FEET. DR. MCCRAY AWARE OF WOUNDS WAITING ON NURSING KEYBOARD INSTRUMENT TUNER TO STAGE WOUNDS.
--- NOTE | 2020-04-28 22:16 | NUR ---
DR. MCCRAY NOTIFIED OF PATIENT HEART RATE BEING LEAH INTO THE THIRTIES AND FORTIES AND THAT LAB IS HAVING A DIFFICULT TIME OBTAINING HER BLOOD DUE TO HER EDEMA. ADVISED TO MONITOR PATIENT HEART RATE AND THAT IF IT SUSTAINS IN THE THIRTIES TO CALL HIM BACK FOR ORDERS. TO IV ACCESS ATTEMPT AND IF UNSUCCESSFUL WILL EVALUATE IN THE AM.
--- NOTE | 2020-04-28 23:39 | NUR ---
DR. MCCRAY NOTIFIED OF PATIENT CURRENT BLOOD PRESSURE PER HIS REQUEST. NO ORDERS RECEIVED AT THIS TIME.
[2020-04-29] VITALS: BP 90/62
--- NOTE | 2020-04-29 00:30 | NUR ---
24 HOUR CHART CHECK COMPLETED
--- NOTE | 2020-04-29 04:30 | NUR ---
PHOTO OF LEFT FOOT WAS TAKEN WITH THE WRONG PATIENT STICKER PLACED ON IT BUT WAS OF THIS PATIENT'S LEFT FOOT.
--- NOTE | 2020-04-29 07:20 | NUR ---
YANN BROOKS [id number] Please refer to the physician's history and physical for past medical history, comorbid conditions, and allergies. Diagnosis: HEART FAILURE GENERAL WEAKNESS MELENA Fabio Score: 13,AT RISK WOUND DESCRIPTIONS: his nurse along with Justina Aponte RN evaluated patient for skin impairments. Wound Number: 1 Location of the wound: left lower leg anterior red blanchable area noted at time of assessment. No drainage at time of assessment. Ecchymotic areas noted to several areas on left foot and left lower leg at time of assessment. Top of left foot manzano and blanchable in color. No drainage at time of assessmemt. No open areas noted at time of assessment. Pitting edema noted to left lower extremity. Wound Number: 2 Location of the wound: top of right foot Thickness: Partial Size: 0.3cm x 0.5cm x 0.1cm Tunneling: none Undermining: none Sinus Tract: none Presence of Exudate: Serous Amount: Moderate Color: Red, pink Odor: None Periwound Skin Appearance: ecchymotic, edema Wound edges: approximated Pain (associated with wound): none at time of assessment How does patient state this happened? pt unable to state how this happened Several ecchymotic areas noted to right lower extremities and right top of foot. Several ecchymotic areas noted to bilateral arms at time of assessment. Surface the patient is resting on: Isoflex SKIN PREVENTION RECOMMENDATION: 1. Pressure redistribution support surface as appropriate 2. Elevate heels 3. Remove boots/TEDS every shift and reapply 4. Head of bed 30 degrees as tolerated 5. Assess nutrition and hydration 6. Manage moisture 7. Avoid the use of containment devices while in bed 8. Use absorptive products on surfaces limit layers of linens on bed 9. Turn and reposition every 1-2 hours in bed and every 1 hour in chair as tolerated 10. Weight shifts every 15 minutes while up in chair 11. Offloading with pillows or device to keep heels elevated off bed 12. Monitor skin at least every shift 13. Inspect under medical devices twice a day WOUND TREATMENT RECOMMENDATIONS: Venous and arterial studies to bilateral lower extremities. Consult podiatry for areas to BLE's await for podiatry for treatment recommendations to top of right foot. Heel raiser pro boots to bilatreal feet while in bed
[2020-04-29 07:36] LABS: BASO % 0.1 % (0.0-1.0); EOS # 0.1 10*3/uL (0.0-0.4); HEMATOCRIT 28.3 % (37.0-47.0); LYMPH # 0.5 10*3/uL (1.3-4.4); LYMPH % 5.9 % (27.0-41.0); MEAN CELL VOLUME 100.7 fl (81.0-99.0); MEAN CORPUSCULAR HGB 30.6 pg (27.0-31.0); MEAN CORPUSCULAR HGB CONC 30.4 g/dl (33.0-37.0); MEAN PLATELET VOLUME 9.9 fl (9.6-12.3); MONO # 0.3 10*3/uL (0.1-1.0); MONO % 3.5 % (3.0-9.0); NEUT # 7.7 10*3/uL (2.3-7.9); NEUT % 88.9 % (47.0-73.0); PLATELET COUNT AUTOMATED 217 10*3/uL (130-400); RED BLOOD COUNT 2.81 10*6/uL (4.10-5.10); RED CELL DISTRI WIDTH 17.8 % (0-14.5); WHITE BLOOD COUNT 8.6 10*3/uL (4.8-10.8)
[2020-04-29 07:48] LABS: ACT PARTIAL THROMBO TIME 31.6 SECONDS (20.0-32.1); INTERNATIONAL NORM RATIO 1.1 (2.0-3.5)
[2020-04-29 07:52] LABS: ALBUMIN 2.6 gm/dl (3.1-4.5); ALKALINE PHOSPHATASE 84 U/L (45-117); BUN 41 mg/dl (7-24); CHLORIDE 111 mmol/L (98-107); CHOLESTEROL 68 mg/dL (<200); CREATININE 0.96 mg/dL (0.55-1.02); FREE T4 1.23 ng/dl (0.76-1.46); HDL CHOLESTEROL 34 mg/dl (40-60); LDL CHOLESTEROL 11 mg/dL (9-159); SGOT/AST 16 IU/L (3-35); SGPT/ALT 9 U/L (12-78); SODIUM 145 mmol/L (136-145); TOTAL PROTEIN 5.8 gm/dL (6.4-8.2); TRIGLYCERIDES 113 mg/dl (<150); VLDL CHOLESTEROL 23 mg/dL (6-40)
[2020-04-29 08:00] VITALS: BP 101/66
--- NOTE | 2020-04-29 08:41 | NUR ---
Dr. Paniagua notified of wound care recommendations
--- NOTE | 2020-04-29 08:43 | NUR ---
[facility] Patient will require another covid test prior to returning, requested order from hospitalist nurse director. Updated clinicals faxed for review.
--- NOTE | 2020-04-29 09:00 | NUR ---
Manager Meat in to talk to patient. Patient states lives at home with and family. There are no steps in the home. Physician: grisel Pharmacy: [facility] Home health services: none Patient's level of ADLs: INDEPENDENT Patient has working utilities: all working DME: none Follow-up physician's appointment after d/c: will be made by hospitalist nurse director upon discharge Does patient want to access PORTAL?: no Discharge plan discussed with patient she states she lives at home with and family, she is independnet in adls and ambulation, works, drives, she states she will return home when discharged and denies any needs at this time, case management will follow. SIDRA KIM
--- NOTE | 2020-04-29 09:17 | NUR ---
PHYSICAL THERAPY Physical Therapy evaluation completed on 4E with full evaluation to follow. Moderate complexity PT evaluation only per chart review and evaluation, [id number]. Patient is from LTC facility and requires marilou lift for mobility. Recommend marilou lift with nursing if transfer out of bed is initiated. Patient is not appropriate for skilled PT services at this time. Thank you for this referral. Ana May,PT,DPT
--- NOTE | 2020-04-29 09:30 | NUR ---
Occupational Therapy evaluation completed on four with full evaluation to follow. Recommend return to LTC upon discharge. Patient is evaluation only this date. Per chart review and discussion with nursing staff and the patient, she is marilou lifted for OOB activity and is dependent for all ADLs. Spoke with professor of nursing in regards to continue with marilou lifting and assist with ADLs. No further skilled OT indicated. Thank you for this referral. Sariah Woo, OTR/L
[2020-04-29 12:00] VITALS: BP 112/73
--- NOTE | 2020-04-29 13:05 | NUR ---
RESIDENT NOTIFIED OF NEW CONSULT.
--- NOTE | 2020-04-29 14:56 | NUR ---
PATIENT OFF THE FLOOR FOR VENOUS AND ARTERIAL ULTRASOUNDS.
--- NOTE | 2020-04-29 15:20 | NUR ---
PATIENT BACK TO THE FLOOR AT THIS TIME.
[2020-04-29 16:00] VITALS: BP 125/67
[2020-04-29 20:00] VITALS: BP 90/60
[2020-04-30] VITALS: BP 90/52
--- NOTE | 2020-04-30 04:01 | NUR ---
Upon discharge recommend patient to follow up for wound care in outpatient setting continue current wound care orders at discharging facility.
[2020-04-30 07:33] LABS: BUN 41 mg/dl (7-24); CHLORIDE 109 mmol/L (98-107); CREATININE 1.03 mg/dL (0.55-1.02); POTASSIUM 3.5 mmol/L (3.5-5.1); SODIUM 142 mmol/L (136-145)
[2020-04-30 08:00] VITALS: BP 90/42; BP 95/61
--- NOTE | 2020-04-30 08:08 | NUR ---
INFORMED PATIENTS BP 90/42. PER KEEP AN EYE ON IT AND RECHECK BEFORE GIVING MORNING MEDS.
[2020-04-30 09:29] LABS: BASO % 0.2 % (0.0-1.0); EOS # 0.2 10*3/uL (0.0-0.4); EOS % 1.8 % (1.0-4.0); HEMATOCRIT 28.9 % (37.0-47.0); LYMPH # 0.7 10*3/uL (1.3-4.4); LYMPH % 8.9 % (27.0-41.0); MEAN CORPUSCULAR HGB 30.1 pg (27.0-31.0); MEAN CORPUSCULAR HGB CONC 30.1 g/dl (33.0-37.0); MEAN PLATELET VOLUME 10.4 fl (9.6-12.3); MONO # 0.4 10*3/uL (0.1-1.0); MONO % 4.8 % (3.0-9.0); NEUT % 83.5 % (47.0-73.0); PLATELET COUNT AUTOMATED 233 10*3/uL (130-400); RED BLOOD COUNT 2.89 10*6/uL (4.10-5.10); RED CELL DISTRI WIDTH 17.3 % (0-14.5); WHITE BLOOD COUNT 8.3 10*3/uL (4.8-10.8)
--- NOTE | 2020-04-30 10:47 | NUR ---
NOTIFIED OF NEW CONSULT.
[2020-04-30 11:06] VITALS: BP 80/50
--- NOTE | 2020-04-30 11:06 | NUR ---
INFORMED PTS MANUAL BP 80/50. PATIENT AYSMPTOMATIC. HELD CARDIZEM, LASIX AND METOPROLOL.
--- NOTE | 2020-04-30 11:30 | NUR ---
PATIENT REFUSED BSG CHECK AT THIS TIME.
[2020-04-30 12:00] VITALS: BP 108/47
--- NOTE | 2020-04-30 12:24 | NUR ---
Nutrition Support Note: Pt dx with heart failure and generalized weakness. Wounds to right and left feet and LLE noted. Albumin is 2.6 (low). Current diet order is low-sodium with Ensure TID. Diet order and supplement is appropriate at this time. Will monitor. Shanelle Perez [facility] Dietetic Student
--- NOTE | 2020-04-30 14:08 | NUR ---
PATIENT RESTING IN BED. AT BEDSIDE. VOICES NO CONERNS. BP HAS CAME UP SOME, STILL HYPOTEMSIVE. PATIENT AYSMTOMATIC. CALL LIGHT WITHIN REACH. WILL MONITOR.
[2020-04-30 16:00] VITALS: BP 112/73
[2020-04-30 20:00] VITALS: BP 114/58
--- NOTE | 2020-04-30 20:00 | NUR ---
PATIENT VOICED NO COMPLAINTS. NO DISTRESS NOTED. CALL LIGHT WITHIN REACH
[2020-05-01] VITALS: BP 108/54
--- NOTE | 2020-05-01 06:29 | NUR ---
AWARE THAT PATIENT REFUSED MORNING LABS AND FINGERSTICK BGM. STATED OK.
--- NOTE | 2020-05-01 07:00 | NUR ---
PT REFUSES BGM TESTING.
[2020-05-01 08:00] VITALS: BP 110/51
[2020-05-01 12:00] VITALS: BP 96/54
[2020-05-01 16:00] VITALS: BP 96/54
[2020-05-01] MEDS ORDERED: CARDIZEM CD120 M2 PO (16:24)
[2020-05-01] MEDS ORDERED: NATURE'S BLEND F1 MG PO (16:24)
[2020-05-01] MEDS ORDERED: LOPRESSOR25 MG PO (16:24)
--- NOTE | 2020-05-01 16:29 | NUR ---
PT CAN RETURN TO [facility] TODAY. [facility] N[facility] NOTIFIED.
--- NOTE | 2020-05-01 17:41 | NUR ---
NOTIFIED DR OBRIEN OF PT REFUSING BGM.
--- NOTE | 2020-05-01 18:30 | NUR ---
Discharge instructions reviewed with patient/family. Patient receptive and verbalizes understanding. Follow-up care arranged. Written instructions given to patient/family. VALDEZ BERMAN
== END 2020-05-01 18:30 | disposition other institution (70) | DRG 377 ==
LOC: ED 15:00 → EDHOLD 17:39 → 4E 17:39
PROVIDERS: Emergency Medicine; Family Medicine; Student in an Organized Health Care Education/Training Program; ADMIT Internal Medicine
DX: K92.1 Melena (principal); N17.0 Acute kidney failure with tubular necrosis; E43 Unspecified severe protein-calorie malnutrition; E87.2 Acidosis; I48.20 Chronic atrial fibrillation, unspecified; I50.32 Chronic diastolic (congestive) heart failure; J96.10 Chronic respiratory failure, unspecified whether with hypoxia or hypercapnia; I69.351 Hemiplegia and hemiparesis following cerebral infarction affecting right dominant side; E11.51 Type 2 diabetes mellitus with diabetic peripheral angiopathy without gangrene; E11.40 Type 2 diabetes mellitus with diabetic neuropathy, unspecified; D53.9 Nutritional anemia, unspecified; E87.6 Hypokalemia; F32.9 Major depressive disorder, single episode, unspecified; K21.9 Gastro-esophageal reflux disease without esophagitis; E55.9 Vitamin D deficiency, unspecified; E53.8 Deficiency of other specified B group vitamins; R19.09 Other intra-abdominal and pelvic swelling, mass and lump; E87.8 Other disorders of electrolyte and fluid balance, not elsewhere classified; E11.65 Type 2 diabetes mellitus with hyperglycemia; E66.01 Morbid (severe) obesity due to excess calories; S91.301A Unspecified open wound, right foot, initial encounter; F03.90 Unspecified dementia, unspecified severity, without behavioral disturbance, psychotic disturbance, mood disturbance, and anxiety; X58.XXXA Exposure to other specified factors, initial encounter; Z79.01 Long term (current) use of anticoagulants; Y93.89 Activity, other specified; Y92.89 Other specified places as the place of occurrence of the external cause; Y99.8 Other external cause status; Z68.38 Body mass index [BMI] 38.0-38.9, adult; Z90.49 Acquired absence of other specified parts of digestive tract; Z82.49 Family history of ischemic heart disease and other diseases of the circulatory system; Z91.048 Other nonmedicinal substance allergy status; Z79.899 Other long term (current) drug therapy; Z79.4 Long term (current) use of insulin; Z20.828 Contact with and (suspected) exposure to other viral communicable diseases

== ENCOUNTER 2020-06-06 21:57 | Inpatient (IN) | payer MEDICARE, MEDICAID ==
[~2020-06-06] VITALS: Ht 165.1 cm; Wt 107.5 kg
[2020-06-06 21:57] VITALS: BP 109/50
[~2020-06-06 21:57] MED LIST changes: +CARDIZEM CD120 M2 PO; +CARDIZEM LA180 MG PO; +IRON325 M1 PO; +LOPRESSOR25 MG PO; +NATURE'S BLEND F1 MG PO; +NOVOLOG FL100 UNIT/2 SC; +TYLENOL325 M1 PO
[2020-06-06 22:20] LABS: BASO % 0.5 % (0.0-1.0); EOS # 0.1 10*3/uL (0.0-0.4); EOS % 2.3 % (1.0-4.0); HEMATOCRIT 38.4 % (37.0-47.0); LYMPH # 1.3 10*3/uL (1.3-4.4); LYMPH % 21.1 % (27.0-41.0); MEAN CELL VOLUME 100.3 fl (81.0-99.0); MEAN CORPUSCULAR HGB 30.5 pg (27.0-31.0); MEAN CORPUSCULAR HGB CONC 30.5 g/dl (33.0-37.0); MEAN PLATELET VOLUME 10.4 fl (9.6-12.3); MONO # 0.4 10*3/uL (0.1-1.0); MONO % 6.6 % (3.0-9.0); NEUT # 4.2 10*3/uL (2.3-7.9); PLATELET COUNT AUTOMATED 271 10*3/uL (130-400); RED BLOOD COUNT 3.83 10*6/uL (4.10-5.10); RED CELL DISTRI WIDTH 16.9 % (0-14.5)
[2020-06-06 22:32] LABS: ACT PARTIAL THROMBO TIME 25.2 SECONDS (20.0-32.1)
[2020-06-06 22:41] LABS: ALBUMIN 2.3 gm/dl (3.1-4.5); CREATININE 1.11 mg/dL (0.55-1.02); POTASSIUM 3.4 mmol/L (3.5-5.1); TOTAL PROTEIN 6.1 gm/dL (6.4-8.2)
[2020-06-06 22:42] LABS: TROPONIN I 0.017 ng/ml (<0.045)
[2020-06-07] VITALS (16 sets, daily range): BP systolic 84–140; BP diastolic 0–78
--- NOTE | 2020-06-07 02:30 | NUR ---
A 74, admitted to , under the services of STELLA Charles DO with a diagnosis of CHF,ARF. Chief complaint is SOB. Patient arrived via ambulance from ER. Monitor applied. Initial assessment completed. Vital signs taken and recorded. STELLA CHARLES DO notified of admission to the unit. Orders received. See assessment for past medical history, medications and allergies. Patient and/or family oriented to unit. [facility] visitation policy reviewed. Clothing/patient valuable form completed. RAHEEM CALLEJAS
[2020-06-07 03:06] LABS: ABG BASE EXCESS 1.4 mmol/L (-2.0-2.0); ARTERIAL BLOOD GAS PH 7.408 (7.35-7.45)
--- NOTE | 2020-06-07 03:10 | NUR ---
DR. JASON W/T.OMyra FOR 500ML NS AT 80ML/HR.
[2020-06-07] MEDS ORDERED: CELEXA20 MG PO (03:20)
[2020-06-07] MEDS ORDERED: OXYCODONE5 M1 PO (03:28)
[2020-06-07] MEDS ORDERED: NEURONTIN100 MG PO (03:29)
--- NOTE | 2020-06-07 03:33 | NUR ---
DR. MCCRAY SAID TO HOLD OFF ON INFUSING IVF AT THIS TIME.
--- NOTE | 2020-06-07 04:00 | NUR ---
PT RESTING QUEITLY IN BED W/EYES CLOSED. BED ALARM ON W/CALL LIGHT IN REACH.
--- NOTE | 2020-06-07 04:16 | NUR ---
DR. CARVER'S ANSWERING SERVICE NOTIFIED OF NEW CONSULT.
[2020-06-07 04:34] LABS: HEMATOCRIT 37.7 % (37.0-47.0); MEAN CELL VOLUME 101.3 fl (81.0-99.0); MEAN CORPUSCULAR HGB 30.9 pg (27.0-31.0); MEAN CORPUSCULAR HGB CONC 30.5 g/dl (33.0-37.0); MEAN PLATELET VOLUME 10.4 fl (9.6-12.3); PLATELET COUNT AUTOMATED 278 10*3/uL (130-400); RED BLOOD COUNT 3.72 10*6/uL (4.10-5.10); RED CELL DISTRI WIDTH 16.8 % (0-14.5); WHITE BLOOD COUNT 5.4 10*3/uL (4.8-10.8)
[2020-06-07 04:35] LABS: BASO # 0.1 10*3/uL (0.0-0.1); BASO % 0.9 % (0.0-1.0); EOS # 0.1 10*3/uL (0.0-0.4); EOS % 1.5 % (1.0-4.0); LYMPH # 0.8 10*3/uL (1.3-4.4); LYMPH % 14.6 % (27.0-41.0); MONO # 0.4 10*3/uL (0.1-1.0); MONO % 6.8 % (3.0-9.0); NEUT # 4.1 10*3/uL (2.3-7.9); NEUT % 75.3 % (47.0-73.0)
[2020-06-07 04:44] LABS: ALBUMIN 2.4 gm/dl (3.1-4.5); ALKALINE PHOSPHATASE 100 U/L (45-117); BUN 25 mg/dl (7-24); CHLORIDE 108 mmol/L (98-107); CREATININE 1.08 mg/dL (0.55-1.02); POTASSIUM 3.2 mmol/L (3.5-5.1); SGOT/AST 13 IU/L (3-35); SGPT/ALT 16 U/L (12-78); SODIUM 143 mmol/L (136-145); TOTAL PROTEIN 6.1 gm/dL (6.4-8.2)
[2020-06-07 04:45] LABS: FREE T4 1.27 ng/dl (0.76-1.46)
[2020-06-07 06:19] LABS: ACT PARTIAL THROMBO TIME 23.2 SECONDS (20.0-32.1)
--- NOTE | 2020-06-07 06:55 | NUR ---
DR. MELTON NOTIFIED OF NEW CONSULT.
--- NOTE | 2020-06-07 07:40 | NUR ---
Updated clinicals faxed to [facility]. Patient is snf care and ok to return when medically stable.
[2020-06-07 09:17] LABS: VITAMIN D, 25-HYDROXY 19.8 ng/mL (30-100)
--- NOTE | 2020-06-07 11:59 | NUR ---
[facility] CALLED AND THEY FOLLOW THE PATIENT.
--- NOTE | 2020-06-07 12:13 | NUR ---
PHYSICAL THERAPY PT order received. Patient is LTC from [facility] and will return at discharge. Patient requires Samm Lift for transfers and has no skilled PT needs at this time. Recommend return to LTC facility at discharge. Discharge PT orders at this time. Thank you. Ana May,PT,DPT
--- NOTE | 2020-06-07 13:30 | NUR ---
BLOOD PRESSURE LOW MANUALLY AND MACHINE. DOPPLER USED TO VERIFY. 84/DOPPLER.
--- NOTE | 2020-06-07 14:32 | NUR ---
COLORIST FORMULATOR SPOKE WITH [facility]. PATIENT IS A FULL CODE AND SHOULD HAVE BEEN ADMITTED UNDER THEIR CARE. SETH SPOKE WITH RN HOSPITALIST COORDINATOR ASHKAN. SHE IS AWARE.
--- NOTE | 2020-06-07 14:57 | NUR ---
HOSPICE NOTIFIED OF CONSULT.
--- NOTE | 2020-06-07 14:59 | NUR ---
Received order for Palliative Care. Faxed to [facility] which is the palliative care through [facility] (patients current hospice company). Order and referral faxed.
--- NOTE | 2020-06-07 15:00 | NUR ---
PT PLACED ON BIPAP. TOLERATING WELL. PT TO USE BIPAP MUCH POSSIBLE. RESPS REGULAR AND UNLABORED.
--- NOTE | 2020-06-07 15:04 | NUR ---
[facility] palliative stating they will not see or treat patient on Palliative while in the hospital or in a [facility]. Therefore they are unable to accept this patient into Palliative care at this time.
[2020-06-07 15:30] LABS: ABG BASE EXCESS 2.9 mmol/L (-2.0-2.0); ARTERIAL BLOOD GAS PH 7.389 (7.35-7.45)
--- NOTE | 2020-06-07 17:05 | NUR ---
PT ARRIVED VIA BED FROM 4E WHERE HER BLOOD PRESSURE HAD BEEN LOW OVER THE PAST SEVERAL HOURS. SHE WAS ALERT ON ARRIVAL, NOT COMPLAINING OF ANY PAIN. SHE HAS ANASARCA, HEEL RAISERS IN PLACE. HEP LOCK LEFT UPPER ARM. CONNECTED TO MONITOR. ORIENTED TO SURROUNDINGS. SEE ALL APPROPRIATE INTERVENTIONS.
--- NOTE | 2020-06-07 17:05 | NUR ---
PT TRANSFFERED TO [facility].
--- NOTE | 2020-06-07 17:10 | NUR ---
PT TAKEN OFF OF BIPAP PLACED ON 6 L NC FOR TRANSPORT TO ICU. TRANSPORTED WITHOUT INCIDENT. BIPAP ON S/B UPON ARRIVAL TO ICU : NURSING ASSESSMENT REQUIRED. UPON ARRIVAL, PT PLACED ON 6 L HFNC.
--- NOTE | 2020-06-07 17:20 | NUR ---
PT PLACED ON BIPAP. RESPS REGULAR AND UNLABORED. PT TOLERATING WELL.
--- NOTE | 2020-06-07 17:25 | NUR ---
NOTIFIED PT'S THAT SHE [facility].
--- NOTE | 2020-06-07 17:37 | NUR ---
DR MELTON NOTIFIED OF PT'S TRANSFER TO [facility].
[2020-06-08] VITALS (12 sets, daily range): BP systolic 92–129; BP diastolic 41–70
[2020-06-08 05:50] LABS: BUN 25 mg/dl (7-24); CHLORIDE 108 mmol/L (98-107); SODIUM 143 mmol/L (136-145)
[2020-06-08 05:54] LABS: BASO % 0.6 % (0.0-1.0); EOS # 0.1 10*3/uL (0.0-0.4); HEMATOCRIT 34.8 % (37.0-47.0); LYMPH # 0.7 10*3/uL (1.3-4.4); LYMPH % 13.5 % (27.0-41.0); MEAN CELL VOLUME 102.7 fl (81.0-99.0); MEAN CORPUSCULAR HGB 31.6 pg (27.0-31.0); MEAN CORPUSCULAR HGB CONC 30.7 g/dl (33.0-37.0); MONO # 0.6 10*3/uL (0.1-1.0); MONO % 11.8 % (3.0-9.0); NEUT # 3.6 10*3/uL (2.3-7.9); NEUT % 71.5 % (47.0-73.0); PLATELET COUNT AUTOMATED 227 10*3/uL (130-400); RED BLOOD COUNT 3.39 10*6/uL (4.10-5.10); RED CELL DISTRI WIDTH 16.9 % (0-14.5)
[2020-06-08 05:55] LABS: POTASSIUM 4.3 mmol/L (3.5-5.1)
[2020-06-08 06:25] LABS: BILIRUBIN NEGATIVE (NEGATIVE); BLOOD 2+ (NEGATIVE); CLARITY CLOUDY (CLEAR); COLOR YELLOW (YELLOW); GLUCOSE NEGATIVE (NEGATIVE); KETONE NEGATIVE (NEGATIVE); NITRITE POSITIVE (NEGATIVE)
[2020-06-08 06:26] LABS: LEUKO ESTERASE 2+ (NEGATIVE)
[2020-06-08 06:42] LABS: WBC TNTC wbc/hpf (0-5)
[2020-06-08 06:43] LABS: BACTERIA 4+; RBC 21-30 rbc/hpf (0-2)
--- NOTE | 2020-06-08 07:36 | NUR ---
Shift chart check completed.24 HR chart check completed.
--- NOTE | 2020-06-08 08:51 | NUR ---
ON ASSESSMENT PATIENT REMAINED ON BIPAP, EASILY AROUSED TO HER NAME. ANASARCA WITH PITTING. RT ARM FLACCID. BASS PATENT YELLOW URINE WITH SEDIMENT. POSITIONED FOR COMFORT AND IS BEING FED BREAKFAST, TAKING WELL.
--- NOTE | 2020-06-08 09:28 | NUR ---
DR GALEANO HAS MADE ROUNDS. REVIEWED MEDS/VITAL SIGNS. TYSON, FROM HOSPICE COMPANY HAS VISITED. PT HAS BEEN ORDERED TRANSFER TO MONITORED STATUS AND NIRAV WEISS, SHIFT DIRECTOR, HAS BEEN NOTIFIED.
--- NOTE | 2020-06-08 11:08 | NUR ---
INCONTINENT LARGE AMOUNT MUSHY BROWN/GREEN STOOL. PERICARE, DRY BRIEF APPLIED AND REPOSITIONED FOR COMFORT.
--- NOTE | 2020-06-08 11:31 | NUR ---
PT OFF OF BIPAP AT THIS TIME. PT RESTING COMFORTALBY ON 6 L HFNC. SPO2 99 HR 78. RESPS REGULAR AND UNLABORED. BBSs EQUAL AND CLEAR.
--- NOTE | 2020-06-08 13:23 | NUR ---
DR MELTON VISITED.
--- NOTE | 2020-06-08 14:16 | NUR ---
RESTING QUIETLY, ON BIPAP.
--- NOTE | 2020-06-08 17:00 | NUR ---
OFF BIPAP TO BE FED. PLACED ON HI FLOW CANNULA 6L/MIN.
--- NOTE | 2020-06-08 17:31 | NUR ---
PT FED FOR DINNER, AND THOROUGHLY ENJOYED THE [place].
--- NOTE | 2020-06-08 22:00 | NUR ---
PATIENT PLACED BACK ON BIPAP AT THIS TIME. PATIENT RESTING IN NO DISTRESS.
--- NOTE | 2020-06-08 23:45 | NUR ---
WHILE GETTING VITALS PATIENT WAKES UP AND BEGINS PULLING AT BIPAP MASKS REQUESTING THAT IT IS TAKEN OFF. PATIENT PLACED ON NASAL CANNULA AT 5 L. PATIENT OS SAT AT 91%. WILL CONTINUE TO MONITOR.
[2020-06-09] VITALS (7 sets, daily range): BP systolic 96–114; BP diastolic 50–78
[2020-06-09 05:41] LABS: ALBUMIN 2.7 gm/dl (3.1-4.5); CREATININE 1.22 mg/dL (0.55-1.02); POTASSIUM 3.5 mmol/L (3.5-5.1); TOTAL PROTEIN 5.5 gm/dL (6.4-8.2)
[2020-06-09 05:49] LABS: BASO % 0.4 % (0.0-1.0); EOS # 0.1 10*3/uL (0.0-0.4); EOS % 2.1 % (1.0-4.0); HEMATOCRIT 31.1 % (37.0-47.0); LYMPH # 0.6 10*3/uL (1.3-4.4); LYMPH % 10.4 % (27.0-41.0); MEAN CORPUSCULAR HGB 31.5 pg (27.0-31.0); MEAN CORPUSCULAR HGB CONC 31.2 g/dl (33.0-37.0); MEAN PLATELET VOLUME 10.8 fl (9.6-12.3); MONO # 0.5 10*3/uL (0.1-1.0); MONO % 8.5 % (3.0-9.0); NEUT # 4.1 10*3/uL (2.3-7.9); PLATELET COUNT AUTOMATED 213 10*3/uL (130-400); RED BLOOD COUNT 3.08 10*6/uL (4.10-5.10); RED CELL DISTRI WIDTH 16.6 % (0-14.5); WHITE BLOOD COUNT 5.3 10*3/uL (4.8-10.8)
--- NOTE | 2020-06-09 07:14 | NUR ---
Shift chart check completed.24 HR chart check completed.
--- NOTE | 2020-06-09 08:35 | NUR ---
PATIENT WAS SLEEPING EASILY ON BIPAP, AROUSES EASILY TO HER NAME. SHE'S NOT ABLE TO SAY WHERE SHE IS. ANASARCA PERSISTS. BASS IN PLACE. HEEL RAISER BOOTS IN PLACE, STRAPS UNDONE TO AVOID PRESSURE. BIPAP IN PLACE AT THIS TIME. BREAKFAST ORDERED. SEE ALL APPROPRIATE INTERVENTIONS.
--- NOTE | 2020-06-09 09:00 | NUR ---
OFF BIPAP TO EAT, ON HI FLOW NASAL CANNULA 6L/MIN.
--- NOTE | 2020-06-09 09:18 | NUR ---
FED ALL YOGURT, JUICE AND FEW BITES OF FREDERICK. NO DIFFICULTY SWALLOWING. HOSPICE NURSE HAS VISITD. DR GALEANO HAS VISITED.
--- NOTE | 2020-06-09 11:33 | NUR ---
PT OFF OF BIPAP AT THIS TIME. RESPS REGULAR AND UNLABORED. SPO2 99 ON 6 L HFNC. O2 DECREASED TO 5 L HFNC. SPO2 96%.
--- NOTE | 2020-06-09 13:07 | NUR ---
DR MELTON HAS VISITED.
--- NOTE | 2020-06-09 17:33 | NUR ---
PATIENT FED DINNER AND ATE WELL. WILL BE GOING TO 524.
--- NOTE | 2020-06-09 18:22 | NUR ---
TURNED SIDE TO SIDE, FRESH BRIEF APPLIED, REPOSITIONED FOR COMFORT. TRANSFERRED IN STABLE CONDITION, VIA BED, TO 524. BRIEF REPORT TO AM STAFF, WILL GIVE REPORT TO PM SHIFT WHEN THEY ARRIVE.
--- NOTE | 2020-06-09 18:25 | NUR ---
PT'S NOTIFIED THAT PT HAS BEEN MOVED TO THE 5TH FLOOR.
--- NOTE | 2020-06-09 20:30 | NUR ---
PATIENT ASSESSMENT COMPLETED AT THIS TIME WITHOUT INCIDENT. PATIENT CURRENTLY ON HIGH FLOW NASAL CANNULA AT 5LPM. PATIENT REMAINS ALERT TO SELF ONLY, REPEATS WORDS AND PHRASES SPOKEN TO HER. NO SIGNS OR SYMPTOMS OF PAIN OR DISTRESS NOTED AT THIS TIME. CALL LIGHT WITHIN REACH, WILL CONTINUE TO MONITOR.
[2020-06-10] VITALS: BP 96/62
--- NOTE | 2020-06-10 00:45 | NUR ---
PATIENT RESTING IN BED AFTER BEING REPOSITIONED. CURRENTLY ON BIPAP, RESTING COMFORTABLY. CALL LIGHT WITHIN REACH, WILL CONTINUE TO MONITOR.
[2020-06-10 06:44] LABS: BASO % 0.4 % (0.0-1.0); EOS # 0.1 10*3/uL (0.0-0.4); EOS % 2.6 % (1.0-4.0); HEMATOCRIT 34.4 % (37.0-47.0); LYMPH # 0.6 10*3/uL (1.3-4.4); LYMPH % 11.7 % (27.0-41.0); MEAN CELL VOLUME 99.1 fl (81.0-99.0); MEAN CORPUSCULAR HGB 30.8 pg (27.0-31.0); MEAN CORPUSCULAR HGB CONC 31.1 g/dl (33.0-37.0); MEAN PLATELET VOLUME 10.4 fl (9.6-12.3); MONO # 0.4 10*3/uL (0.1-1.0); MONO % 8.9 % (3.0-9.0); NEUT # 3.8 10*3/uL (2.3-7.9); NEUT % 75.8 % (47.0-73.0); PLATELET COUNT AUTOMATED 209 10*3/uL (130-400); RED BLOOD COUNT 3.47 10*6/uL (4.10-5.10); RED CELL DISTRI WIDTH 16.6 % (0-14.5)
[2020-06-10 06:56] LABS: CREATININE 1.24 mg/dL (0.55-1.02); POTASSIUM 3.3 mmol/L (3.5-5.1)
--- NOTE | 2020-06-10 07:13 | NUR ---
PATIENT CURRENTLY OFF BIPAP. PATIENT ON 5 L HFNC SPO2 100% HR 84, DECRESED TO 4 L/M.
[2020-06-10 08:00] VITALS: BP 106/52
--- NOTE | 2020-06-10 08:17 | NUR ---
Updated clinicals faxed to [facility] for review, including bipap setting and negative Covid-19 test results. Patient is k 12 principal care and ok to return when medically stable
[2020-06-10 12:00] VITALS: BP 102/66
[2020-06-10 16:00] VITALS: BP 114/72
[2020-06-10 20:00] VITALS: BP 91/51
[2020-06-11] VITALS: BP 91/48
--- NOTE | 2020-06-11 00:26 | NUR ---
PATIENT ON BIPAP HS
--- NOTE | 2020-06-11 03:44 | NUR ---
24 HOUR CHART CHECK COMPLETE
[2020-06-11 06:42] LABS: POTASSIUM 3.7 mmol/L (3.5-5.1)
[2020-06-11 06:54] LABS: ALBUMIN 2.7 gm/dl (3.1-4.5); CREATININE 1.47 mg/dL (0.55-1.02); TOTAL PROTEIN 6.3 gm/dL (6.4-8.2)
[2020-06-11 08:00] VITALS: BP 96/80
--- NOTE | 2020-06-11 08:00 | NUR ---
assessment complete, pt has ecchomotic area to left arzola, covered by previous shift with dry dressing, no open area noted at this time.
[2020-06-11 12:00] VITALS: BP 114/50
--- NOTE | 2020-06-11 13:21 | NUR ---
case management visits with patient, she is a snf resident of [facility] and will return when discharged, patient is a tenative discharge for tomorrow, case management will follow
[2020-06-11 16:00] VITALS: BP 100/66
[2020-06-11 20:00] VITALS: BP 114/66; BP 114/96
--- NOTE | 2020-06-11 20:30 | NUR ---
24 HR chart check completed.
--- NOTE | 2020-06-11 20:56 | NUR ---
RESTING IN BED. RESPIRATIONS EASY. LUNGS DIMINISHED. PULSE OX 100% 3L HI-FLOW. GENERALIZED PITTING EDEMA NOTED. BASS PATENT. CALL LIGHT WITHIN REACH. MEDICATED WITH RESTORIL TP ASSIST WITH SLEEP. WILL MONITOR.
--- NOTE | 2020-06-11 21:30 | NUR ---
MEDS EFFECTIVE. SLEEPING
[2020-06-12] VITALS: BP 105/39; BP 106/42
--- NOTE | 2020-06-12 | NUR ---
SLEEPING. NO DISTRESS NOTED. RESPIRATIONS EASY. PULSE OX 100% BI-PAP IN USE. CALL LIGHT WITHIN REACH. NO VOICED COMPLAINTS
--- NOTE | 2020-06-12 06:00 | NUR ---
SLEPT THROUGHOUT NIGHT WITH NO DISTRESS NOTED. RESPIRATIONS EASY. BI-PAP IN USE. CALL LIGHT WITHIN REACH. NO VOICED COMPLAINTS THIS SHIFT
[2020-06-12 08:00] VITALS: BP 104/54
[2020-06-12 08:32] LABS: BASO % 0.7 % (0.0-1.0); EOS # 0.1 10*3/uL (0.0-0.4); EOS % 2.5 % (1.0-4.0); LYMPH # 1.1 10*3/uL (1.3-4.4); LYMPH % 19.1 % (27.0-41.0); MEAN CORPUSCULAR HGB 30.2 pg (27.0-31.0); MEAN CORPUSCULAR HGB CONC 30.5 g/dl (33.0-37.0); MEAN PLATELET VOLUME 10.3 fl (9.6-12.3); MONO # 0.5 10*3/uL (0.1-1.0); NEUT # 3.9 10*3/uL (2.3-7.9); NEUT % 69.3 % (47.0-73.0); PLATELET COUNT AUTOMATED 205 10*3/uL (130-400); RED BLOOD COUNT 3.94 10*6/uL (4.10-5.10); WHITE BLOOD COUNT 5.7 10*3/uL (4.8-10.8)
[2020-06-12 08:43] LABS: CREATININE 1.09 mg/dL (0.55-1.02); POTASSIUM 3.6 mmol/L (3.5-5.1)
--- NOTE | 2020-06-12 09:05 | NUR ---
HOSPICE NURSE TO SEE PATIENT REGARDING PLAN OF CARE.
--- NOTE | 2020-06-12 09:22 | NUR ---
DMITRY ZARCO IN TO SEE PATIENT.
[2020-06-12 12:00] VITALS: BP 100/56
--- NOTE | 2020-06-12 12:26 | NUR ---
[facility], case management will follow
[2020-06-12 16:00] VITALS: BP 106/50
--- NOTE | 2020-06-12 17:25 | NUR ---
PT SITTING UP IN BED. DINNER TRAY AT BEDSIDE. PATIENT BEING FED WITH ASSISTANCE. PT TOLERATING WELL. WILL CONTINUE TO MONITOR. CALL LIGHT WITHIN REACH.
--- NOTE | 2020-06-12 18:42 | NUR ---
HOTEL STAFF MEMBER CALLED AT THIS TIME REGARDING HR TACHY IN THE 130'S. A-FIB PER CM. CALLED AT THIS TIME. AWAITING RETURN PHONE CALL.
--- NOTE | 2020-06-12 18:44 | NUR ---
RETURNED CALL. NEW ORDERS RECEIVED.
--- NOTE | 2020-06-12 19:08 | NUR ---
CARDIZEM PO GIVEN AT THIS TIME X1 DOSE FOR INCREASED HR. HR RANGING BETWEEN 117-130'S. A-FIB PER CM. HX OF A-FIB. PT ASYMPTOMATIC. WILL MONITOR HR. CALL LIGHT WITHIN REACH.
--- NOTE | 2020-06-12 19:10 | NUR ---
REPORT RECEIVED. PT LYING IN BED. O2 INTACT. CALL LIGHT IN REACH
[2020-06-12 20:00] VITALS: BP 105/42
--- NOTE | 2020-06-12 20:30 | NUR ---
DR. LEACH NOTIFIED OF PT HR 140'S PER CM. ORDERED IV LOPRESSOR AND DIGOXIN. WILL MONITOR EFFECTIVENESS
--- NOTE | 2020-06-12 20:32 | NUR ---
PER DR. NIXON IV LOPRSSOR TO BE GIVEN FIRST. IF AFTER 30 MIN NO CHANGE, GIVE IV DIGOXIN
[2020-06-13] VITALS: BP 105/43
--- NOTE | 2020-06-13 00:20 | NUR ---
PLACED ON NIV AT THIS TIME
[2020-06-13 08:00] VITALS: BP 103/58; BP 108/54
--- NOTE | 2020-06-13 09:00 | NUR ---
case management visits with patient, she will be discharged to [facility] today
--- NOTE | 2020-06-13 09:41 | NUR ---
EAR NOSE THROAT SURGEON FAXED UPDATES TO [facility]
[2020-06-13 12:00] VITALS: BP 102/57
[2020-06-13] MEDS ORDERED: OXYCODONE5 M1 PO (14:47)
[2020-06-13] MEDS ORDERED: VITAMIN D3125 MC1 PO (14:47)
[2020-06-13] MEDS ORDERED: Lanoxin PO (14:47)
[2020-06-13] MEDS ORDERED: FUROSEMIDE40 MG PO (14:47)
[2020-06-13] MEDS ORDERED: NEURONTIN100 MG PO (14:47)
--- NOTE | 2020-06-13 15:04 | NUR ---
IT ASSISTANT NOTIFIED OF DISCHARGE. SEATING CAPTAIN SIDRA SPOKE TO JUNE LYNN. IT ASSISTANT REACHED OUT TO [facility] TO SET TRANSPORT. PER HEMS, THE CREW IS ON AN EMERGENCY NO TIME FRAME AVAILABLE AT THIS TIME. IT ASSISTANT EXPLAINED THE PATIENT IS READY WHEN THE CREW IS AVAIABLE. IT ASSISTANT PROVIDED THEM WITH THE FLOORS NUMBER. DISPATCHER STATED SHE WOULD GIVE THE FLOOR A CALL WHEN CREW IS ON THE WAY. IT ASSISTANT INFORMED JUNE RODRIGUEZ OF THIS WHO STATED SHE WOULD TELL JUNE LYNN AND KEELEY RAMIRES. IT ASSISTANT NOTIFIED [facility] OF DISCHARGE AND PATIENTS DAUGHTER. IT ASSISTANT WILL FAX DISCHARGE ORDERS TO KATELYN.
--- NOTE | 2020-06-13 16:06 | NUR ---
[facility] HERE. PATIENT TAKEN OFF THE FLOOR VIA STRETCHER. IV SITE REMOVED. PATIENT DISCHARGE PACKET SENT WITH [facility].
== END 2020-06-13 16:06 | disposition hospice, home (50) | DRG 291 ==
LOC: ED 21:57 → 5E 06-07 00:38 → 4E 06-07 00:38 → EDHOLD 06-07 00:38 → 4E 06-07 01:18 → ICCU 06-07 17:16 → 5E 06-09 18:10
PROVIDERS: Emergency Medicine; Hospitalist; Registered Nurse; Social Worker Clinical; Student in an Organized Health Care Education/Training Program; ADMIT Family Medicine; ATTEND Family Medicine
PROC: 5A09457 Assistance with Respiratory Ventilation, 24-96 Consecutive Hours, Continuous Positive Airway Pressure (ICD-10-PCS; principal; 2020-06-07)
PROC: 5A09357 Assistance with Respiratory Ventilation, Less than 24 Consecutive Hours, Continuous Positive Airway Pressure (ICD-10-PCS; 2020-06-09)
PROC: 5A09357 Assistance with Respiratory Ventilation, Less than 24 Consecutive Hours, Continuous Positive Airway Pressure (ICD-10-PCS; 2020-06-10)
PROC: 5A09357 Assistance with Respiratory Ventilation, Less than 24 Consecutive Hours, Continuous Positive Airway Pressure (ICD-10-PCS; 2020-06-11)
PROC: 5A09357 Assistance with Respiratory Ventilation, Less than 24 Consecutive Hours, Continuous Positive Airway Pressure (ICD-10-PCS; 2020-06-12)
PROC: 5A09357 Assistance with Respiratory Ventilation, Less than 24 Consecutive Hours, Continuous Positive Airway Pressure (ICD-10-PCS; 2020-06-13)
DX: I50.33 Acute on chronic diastolic (congestive) heart failure (principal); J96.21 Acute and chronic respiratory failure with hypoxia; N17.0 Acute kidney failure with tubular necrosis; E43 Unspecified severe protein-calorie malnutrition; D68.9 Coagulation defect, unspecified; D68.61 Antiphospholipid syndrome; I48.19 Other persistent atrial fibrillation; E66.2 Morbid (severe) obesity with alveolar hypoventilation; I69.351 Hemiplegia and hemiparesis following cerebral infarction affecting right dominant side; E87.6 Hypokalemia; D53.9 Nutritional anemia, unspecified; R26.2 Difficulty in walking, not elsewhere classified; F03.90 Unspecified dementia, unspecified severity, without behavioral disturbance, psychotic disturbance, mood disturbance, and anxiety; F32.9 Major depressive disorder, single episode, unspecified; K21.9 Gastro-esophageal reflux disease without esophagitis; E55.9 Vitamin D deficiency, unspecified; E87.8 Other disorders of electrolyte and fluid balance, not elsewhere classified; I27.20 Pulmonary hypertension, unspecified; I07.1 Rheumatic tricuspid insufficiency; G89.29 Other chronic pain; E11.65 Type 2 diabetes mellitus with hyperglycemia; I89.0 Lymphedema, not elsewhere classified; N18.9 Chronic kidney disease, unspecified; Z20.828 Contact with and (suspected) exposure to other viral communicable diseases; B96.1 Klebsiella pneumoniae [K. pneumoniae] as the cause of diseases classified elsewhere; I95.9 Hypotension, unspecified; I48.0 Paroxysmal atrial fibrillation; E11.22 Type 2 diabetes mellitus with diabetic chronic kidney disease; E11.40 Type 2 diabetes mellitus with diabetic neuropathy, unspecified; T50.2X5A Adverse effect of carbonic-anhydrase inhibitors, benzothiadiazides and other diuretics, initial encounter; Y92.89 Other specified places as the place of occurrence of the external cause; Z99.81 Dependence on supplemental oxygen; Z91.09 Other allergy status, other than to drugs and biological substances; Z90.49 Acquired absence of other specified parts of digestive tract; Z98.891 History of uterine scar from previous surgery; Z82.49 Family history of ischemic heart disease and other diseases of the circulatory system; Z83.3 Family history of diabetes mellitus; Z79.01 Long term (current) use of anticoagulants; Z79.899 Other long term (current) drug therapy; Z74.01 Bed confinement status; Z79.4 Long term (current) use of insulin; Z68.38 Body mass index [BMI] 38.0-38.9, adult